=== PATIENT | male | born 1965 | race Caucasian/White ===

== ENCOUNTER 2020-12-12 12:18 | Outpatient (REF) | payer MEDICARE, MEDICAID, SELFPAY ==
[2020-12-12 14:08] LABS: Appearance Urine HAZY; Color Urine YELLOW; Glucose Urine UA NEG (NEG); Leukocyte Esterase Urine 3+ (NEG); Nitrite Urine POS (NEG); UACC Culture Trigger YES; Urine Blood 2+ (NEG); Urine Ketones NEG (NEG); Urine Protein 1+ MG/DL (NEG-TRACE)
[2020-12-12 14:35] LABS: Bacteria Urine 3+ /LPF; Oval Fat Bodies Urine NOTED; Squamous Epithelial Cell Urine TRACE /LPF; WBC Urine 50-75 /HPF (0-4)
== END 2020-12-12 12:19 | disposition home or self-care (01) ==
LOC: HO.HMGCLDS 12:18
PROVIDERS: PCP Nurse Practitioner Family; Visit Provider Nurse Practitioner Family
DX: R30.0 Dysuria (principal)
CPT/HCPCS: 81001; 81003; 87086; 87088; 87186

== ENCOUNTER 2020-12-27 12:58 | Outpatient (REF) | payer MEDICARE, MEDICAID, SELFPAY ==
[2020-12-27 14:02] LABS: MANUAL DIFF FLAG NO
[2020-12-27 14:03] LABS: Basophils Absolute Auto 0.1 X10*3/uL (0.0-0.2); Basophils Percent Auto 0.7 % (0-2); Eosinophils Absolute Auto 0.3 X10*3/uL (0.0-0.4); Eosinophils Percent Auto 3.4 % (0-4); Hematocrit 43.8 % (42-52); Hemoglobin 15.1 g/dl (14.0-18.0); Imm Gran Abs Auto 0.02 X10*3/uL (0.00-0.03); Imm Gran Pct Auto 0.2 % (0.0-0.4); Lymphocytes Absolute Auto 2.3 X10*3/uL (1.2-4.9); Mean Corpuscular HGB Conc 34.5 g/dl (31.0-36.0); Mean Corpuscular Hemoglobin 36.7 pg (27.0-33.0); Mean Corpuscular Volume 106.3 fL (80-98); Mean Platelet Volume 10.1 fL (9.4-12.4); Monocytes Absolute Auto 0.5 X10*3/uL (0.1-1.2); Monocytes Percent Auto 6.1 % (2-11); Neutrophils Absolute Auto 5.3 X10*3/uL (2.0-8.3); Neutrophils Percent Auto 62.6 % (45-73); Platelet Count 225 X10*3/uL (160-400); Red Blood Count 4.12 X10*6/uL (4.60-5.80); Red Cell Distribution Width 13.1 % (11.0-16.0); White Blood Count 8.5 X10*3/uL (4.8-10.8)
[2020-12-27 14:11] LABS: Estimated Average Glucose 94 mg/dL; Hemoglobin A1c % 4.9 %
[2020-12-27 14:38] LABS: Creatinine Urine 180.68 mg/dL; Protein/Creatinine Ratio, Ur 0.09 (<0.2); Total Protein Urine Random 16 mg/dL (<12)
[2020-12-27 14:50] LABS: Anion Gap 16 (12-20); Blood Urea Nitrogen 10 mg/dL (9-16); Calcium 10.1 mg/dL (8.4-10.2); Carbon Dioxide 26 mmol/L (22-29); Chloride 101 mmol/L (96-108); Cholesterol 175 mg/dL; Estimated Glomerular Filt Rate > 60; HDL Cholesterol 35 mg/dL; LDL Cholesterol Calculated 87 mg/dl; Phosphorus 3.1 mg/dL (2.7-4.5); Potassium 4.6 mmol/L (3.3-5.1); Sodium 138 mmol/L (135-145); Triglycerides 266 mg/dL
[2020-12-27 14:58] LABS: Vitamin D 25-OH Total 33.4 ng/mL (>30)
[2020-12-28 16:01] LABS: Calcium (PTHI) 10.4 mg/dL (8.6-10.3); PTHI 24 pg/mL (14-64)
[2021-01-01 05:27] LABS: Magnesium, RBC 5.1 mg/dL (4.0-6.4)
== END 2020-12-27 12:59 | disposition home or self-care (01) ==
LOC: HO.HMGCLDS 12:58
PROVIDERS: PCP Nurse Practitioner Family; Visit Provider Internal Medicine Nephrology
DX: I10 Essential (primary) hypertension (principal); R00.0 Tachycardia, unspecified; M10.9 Gout, unspecified; I95.1 Orthostatic hypotension; F10.10 Alcohol abuse, uncomplicated; D75.89 Other specified diseases of blood and blood-forming organs
CPT/HCPCS: 36415; 80051; 80061; 82306; 82310; 82565; 83036; 83735; 83970; 84100; 84156; 84520; 84550; 85025

== ENCOUNTER 2021-03-23 11:47 | Outpatient (REF) | payer MEDICARE, MEDICAID, SELFPAY ==
--- NOTE | ~2021-03-23 | XR_ITS ---
EXAMINATION: XR ABDOMEN COMPLETE CLINICAL INDICATION: Generalized abdominal pain COMPARISON: None TECHNIQUE: 2 views of the abdomen. FINDINGS: There is stool throughout the colon suggestive of constipation. No dilated loops of bowel are seen. There is no evidence of free air. There are no calcifications. There are degenerative changes of the lower lumbar spine. There is arthritis at both hip joints with joint space narrowing, osteophyte and subchondral cyst formation. XR/XR abdomen 3V IMPRESSION: Stool throughout the colon suggestive of constipation.
[2021-03-23 13:08] LABS: Hematocrit 43.2 % (42.0-52.0); Hemoglobin 14.7 g/dl (14.0-18.0); Mean Corpuscular Hemoglobin 36.3 pg (27.0-33.0); Mean Corpuscular Volume 106.7 fL (80.0-98.0); Mean Platelet Volume 10.7 fL (9.4-12.4); Platelet Count 202 X10*3/uL (160-400); Red Blood Count 4.05 X10*6/uL (4.60-5.80); Red Cell Distribution Width 12.6 % (11.0-16.0); White Blood Count 9.9 X10*3/uL (4.8-10.8)
[2021-03-23 13:26] LABS: Anion Gap 16 (12-20); Blood Urea Nitrogen 10 mg/dL (9-16); Calcium 9.5 mg/dL (8.4-10.2); Carbon Dioxide 26 mmol/L (22-29); Chloride 102 mmol/L (96-108); Estimated Glomerular Filt Rate > 60; Glucose Random 104 mg/dL (60-115); Lipase 60 U/L (8-78); Potassium 4.6 mmol/L (3.3-5.1); Sodium 139 mmol/L (135-145)
[2021-03-23 13:46] LABS: Prostate Specific Antigen Scr 0.65 ng/mL (<0.05-4.0)
== END 2021-03-23 11:48 | disposition home or self-care (01) ==
LOC: HO.HMGCX 11:47
PROVIDERS: PCP Nurse Practitioner Family; Visit Provider Physician Assistant
DX: R10.84 Generalized abdominal pain (principal); Z12.5 Encounter for screening for malignant neoplasm of prostate
CPT/HCPCS: 36415; 74021; 80048; 83690; 84153; 85027

== ENCOUNTER → 2021-06-20 14:22 | Outpatient (BNVA) | payer MEDICARE, MEDICAID, SELFPAY | PROVIDERS: PCP Nurse Practitioner Family; Referring Provider Nurse Practitioner Family; Visit Provider Physician Assistant | DX: Z01.818 Encounter for other preprocedural examination (principal) | CPT/HCPCS: 99202 ==

== ENCOUNTER 2021-10-22 07:59 | Day surgery (SDC) | payer MEDICARE, MEDICAID, SELFPAY ==
[2021-10-16 14:25] VITALS: BMI 27.6
[2021-10-22] VITALS (7 sets, daily range): BP systolic 61–127; BP diastolic 38–99; PULSE 68–87; RESP 16–20; TEMP 35.8–36.1; O2SAT 94–100
[2021-10-22] MEDS: Lactated Ringers 1,000 ML 50 ML IVCONT (08:36)
--- NOTE | 2021-10-22 08:39 | MHC.SHP ---
Pre-Procedural Eval Section A Date of Service: 10/22/21 Section B Chief Complaint: screening Relevant Family History (Specify if Yes): No Relevant Social History: Other (specify) (THC use) Present Medications: see Short Stay Collaborative assessment Medical History: Significant History (Gout, arthropathy HTN (hypertension)) History of Previous Operations: Relevant previous surgery/procedure and date(s) (Hx of appendectomy Hx of elbow surgery) Allergies: Allergies Allergy/AdvReac Type Severity Reaction Status Date / Time No Known Allergies Allergy Verified 09/26/21 14:56 Review of Systems Sugical H&P ROS: Negative: Constitution, Cardiovascular, Respiratory, Neurological, Psychiatric, Hem-Onc, Allergic/Immunologic, Gastrointestinal, Genitourinary, Musculoskeletal, Integumentary, Endocrine and Eyes/Ears/Nose/Throat Exam Surgical H&P Exam: Normal: HEENT, Normal: Heart, Normal: Lungs, Normal: Extremities, Normal: Abdomen, Normal: Skin and Normal: Neurological Plan Diagnosis/Plan: Unchanged I have reviewed the history and physical and performed a pertinent physical examination on my patient. No changes have occurred unless specified.
--- NOTE | 2021-10-22 09:01 | HO.ANESPROP2 ---
HPI - Anesthesia Eval Consult details Narrative: 56 yo male patient for colonoscopy PMFSH Active Problems Active Problems: All Active Problems (Updated 09/26/21 @ 15:03 by Diane Moore CNP) Lump in the testicle (Acute) Blurred vision, bilateral (Acute) Screening for colon cancer (Acute) Abdominal pain (Acute) Constipation (Acute) Dysuria (Acute) Osteoarthritis Gout Past Medical History Medical History Gout Gout, arthropathy HTN (hypertension) Family History Family History Mother HTN (hypertension) Maternal Uncle Cancer Family/Other Cancer Family history of problems with anesthesia: No Surgical History Surgical History Hx of appendectomy Hx of elbow surgery History of Problems with Anesthesia: No Social History Social History (Updated 10/22/21 @ 09:15 by Sruthi Del Real MD) Household Members: Family Alcohol intake: current Alcohol intake frequency: a few times a month Patient Tobacco Use Status: Current everyday Tobacco user Cigarette Packs Per Day: 1 Cigarettes Per Day: 20.0 Smoked in Last 30 Days: Yes Use of substances other than those prescribed or required for medical reasons: Yes Substance Use Type: Marijuana Substance Use Frequency: Daily Last Used Substance: Hours (ago) Currently Displaying Signs/Symptoms of Drug Intoxication Withdrawal: No Are you DNR?: No Advance Directives: No Advance Directives Information Provided: Yes Current occupational status: unemployed Meds Allergies Allergy/AdvReac Type Severity Reaction Status Date / Time No Known Allergies Allergy Verified 09/26/21 14:56 Active Medications: Current Medications Lactated Ringer's (Lr) 1,000 mls @ 50 mls/hr IVCONT .Q20H DANYEL Last Admin: 10/22/21 08:36 Dose: 50 mls/hr Home Medications Medication Instructions Recorded Confirmed Last Taken Type allopurinol 300 mg tablet 300 mg PO DAILY 03/23/21 10/16/21 Unknown History calcium-vit D3-ferrous fumarate 1 tab PO DAILY 03/23/21 10/16/21 Unknown History 600 mg-125 unit-18 mg tablet metoprolol succinate 25 mg 25 mg PO DAILY 03/23/21 10/16/21 10/22/21 History tablet,extended release 24 hr probenecid 500 mg tablet 0 mg PO BEDTIME 03/23/21 10/16/21 Unknown History lisinopril 10 mg tablet 10 mg PO DAILY 06/20/21 10/16/21 Unknown History Exam Exam Date and Time: October 22, 2021 09 Height,Weight and Vital Signs: Height 6 ft Weight 92.533 kg Last Vital Signs Temp 96.5 F L 10/22/21 08:18 Pulse 87 10/22/21 08:18 Resp 20 10/22/21 08:18 BP 127/99 H 10/22/21 08:18 Pulse Ox 98 10/22/21 08:18 O2 Del Method 10/22/21 08:18 Airway Mallampati Class: II TM Dist: >3cm Neck ROM: Full Denture: Upper and Lower Heart: RRR Lungs: Diminished. CTAB Assessment and Plan Assessment Anesthesia Assessment: Anesthesia Plan Discussed and Chart Reviewed Final Anesthetic Review Family History of Problems with Anesthesia: No History of Problems with Anesthesia: No NPO: Yes ASA Class: II Final Preanesthetic Review: No Changes in Pt Med Stat, Meds/Allgs Chart Reviewed, Consent Obtained/Reviewed and Anes Risks/Benef Reviewed Patient Risk: Intermediate Procedure Risk: Low Assessment/Block/Sedation in SS: Assess/Block/Sedation-SS Anesthetic Plan Anesthetic Plan: MAC: Disposition: Standard PACU
--- NOTE | 2021-10-22 09:44 | W.PM.OPN ---
Operative Note Operative Note Date of Service: 10/22/21 Narrative: Operative Information Procedure Description: Colonoscopy Indication: screening Anesthesia: MAC COLONOSCOPY Instrument: Olympus variable stiffness pediatric scope 190L Colonoscopy Monitoring: Vital signs and clinical assessment, continuous EKG monitoring, Pulse oximetry, Carbon Dioxide monitoring and blood pressure monitoring were done throughout the procedure. Colon withdrawal time was 14 minutes. Procedure: The patient was placed in the left lateral decubitis position and pre-procedure medications were administered. After a digital rectal examination of the ano-rectum, the video colonoscope was inserted into the rectum and advanced through the colon to the cecum/TI. The colonoscope was slowly withdrawn in a retrograde panoramic fashion and the colon mucosa was carefully examined including a retroflexed view of the rectum. Findings and interventions are described below. Procedure Difficulty: easy Findings: Terminal Ileum-normal Cecum: flat polyp lesion 12 mm raised with orise and then removed with cold snare with one clip applied for hemostasis Ascending Colon: normal Transverse Colon -normal Descending Colon:normal Sigmoid Colon: 10 mm sessile polyp removed with cold snare, mild-moderate diverticulosis Rectum: Retroflexion with small internal hemorrhoids, grade I Anorectum - normal Colon preparation: [place] Bowel Preparation Scale Right colon; 3 Transverse colon: 2 Left colon; 2 (0 = Unprepared colon segment with mucosa not seen due to solid stool that cannot be cleared. 1 = Portion of mucosa of the colon segment seen, but other areas of the colon segment not well seen due to staining, residual stool and/or opaque liquid. 2 = Minor amount of residual staining, small fragments of stool and/or opaque liquid, but mucosa of colon segment seen well. 3 = Entire mucosa of colon segment seen well with no residual staining, small fragments of stool or opaque liquid) Impression and Post Procedure Diagnosis: polyps internal hemorrhoids diverticular disease Plan: High fiber diet leaflet Avoid straining at stool, epsom salts and sitz bath, anusol supps or cream Repeat Colonoscopy in 3 years due to polyps or earlier if clinically indicated Above findings were reviewed with the patient and relevant handouts were provided if indicated.
== END 2021-10-22 10:50 | disposition home or self-care (01) ==
PROVIDERS: PCP Nurse Practitioner Family; Visit Provider Internal Medicine Gastroenterology
PROC: 0DJD8ZZ Inspection of Lower Intestinal Tract, Via Natural or Artificial Opening Endoscopic (ICD-10-PCS; CPT 45378; principal; 2021-10-22 09:10)
DX: Z12.11 Encounter for screening for malignant neoplasm of colon (principal); D12.5 Benign neoplasm of sigmoid colon; K63.5 Polyp of colon; K57.30 Diverticulosis of large intestine without perforation or abscess without bleeding; K64.0 First degree hemorrhoids; I10 Essential (primary) hypertension; M10.9 Gout, unspecified; Z79.899 Other long term (current) drug therapy; F12.90 Cannabis use, unspecified, uncomplicated
CPT/HCPCS: 45385; 45381; 88305

== ENCOUNTER → 2021-12-02 09:55 | Outpatient (BNVA) | payer MEDICARE, MEDICAID, SELFPAY | PROVIDERS: PCP Nurse Practitioner Family; Visit Provider Physician Assistant | DX: K57.30 Diverticulosis of large intestine without perforation or abscess without bleeding (principal); K64.9 Unspecified hemorrhoids; D36.9 Benign neoplasm, unspecified site | CPT/HCPCS: 99212 ==

== ENCOUNTER 2021-12-31 13:32 | Outpatient (REF) | payer MEDICARE, MEDICAID, SELFPAY ==
[2021-12-31 16:27] LABS: MANUAL DIFF FLAG NO
[2021-12-31 16:32] LABS: Basophils Absolute Auto 0.1 X10*3/uL (0.0-0.2); Basophils Percent Auto 1.1 % (0-2); Eosinophils Absolute Auto 0.3 X10*3/uL (0.0-0.4); Eosinophils Percent Auto 3.5 % (0-4); Hematocrit 46.6 % (42.0-52.0); Hemoglobin 15.9 g/dl (14.0-18.0); Imm Gran Abs Auto 0.02 X10*3/uL (0.00-0.03); Imm Gran Pct Auto 0.3 % (0.0-0.4); Lymphocytes Absolute Auto 2.2 X10*3/uL (1.2-4.9); Mean Corpuscular HGB Conc 34.1 g/dl (31.0-36.0); Mean Corpuscular Hemoglobin 35.8 pg (27.0-33.0); Mean Platelet Volume 10.5 fL (9.4-12.4); Monocytes Absolute Auto 0.6 X10*3/uL (0.1-1.2); Monocytes Percent Auto 7.9 % (2-11); Neutrophils Percent Auto 56.2 % (45-73); Platelet Count 169 X10*3/uL (160-400); Red Blood Count 4.44 X10*6/uL (4.60-5.80); White Blood Count 7.2 X10*3/uL (4.8-10.8)
[2021-12-31 16:39] LABS: Estimated Average Glucose 94 mg/dL; Hemoglobin A1c % 4.9 %
[2021-12-31 16:44] LABS: Alanine Aminotransferase 9 U/L (0-40); Albumin Level 4.4 g/dL (3.5-5.0); Alkaline Phosphatase 78 U/L (39-117); Anion Gap 14 (12-20); Aspartate Amino Transferase 19 U/L (5-37); Bilirubin Total 0.5 mg/dL (0.0-1.0); Blood Urea Nitrogen 10 mg/dL (9-16); Calcium 9.8 mg/dL (8.4-10.2); Carbon Dioxide 29 mmol/L (22-29); Chloride 99 mmol/L (96-108); Cholesterol 183 mg/dL; Estimated Glomerular Filt Rate > 60; Glucose Random 75 mg/dL (60-115); HDL Cholesterol 44 mg/dL; LDL Cholesterol Calculated 102 mg/dl; Magnesium 1.8 mg/dL (1.6-2.6); Phosphorus 2.9 mg/dL (2.7-4.5); Potassium 4.7 mmol/L (3.3-5.1); Sodium 137 mmol/L (135-145); Total Protein 7.6 g/dL (6.5-8.0); Triglycerides 185 mg/dL; Uric Acid 3.9 mg/dL (3.4-7.0)
[2021-12-31 16:47] LABS: Creatinine Urine 98.45 mg/dL; Protein/Creatinine Ratio, Ur 0.09 (<0.2); Total Protein Urine Random 9 mg/dL (<12)
[2021-12-31 17:07] LABS: Vitamin D 25-OH Total 12.6 ng/mL (>30)
[2022-01-01 13:22] LABS: PTHI 54 pg/mL (16-77)
== END 2021-12-31 13:33 | disposition home or self-care (01) ==
LOC: HO.HMGCLDS 13:32
PROVIDERS: PCP Nurse Practitioner Family; Visit Provider Internal Medicine Nephrology
DX: R60.9 Edema, unspecified (principal); I10 Essential (primary) hypertension; M10.09 Idiopathic gout, multiple sites; R60.0 Localized edema; I95.1 Orthostatic hypotension; F10.10 Alcohol abuse, uncomplicated; D75.89 Other specified diseases of blood and blood-forming organs; F17.210 Nicotine dependence, cigarettes, uncomplicated
CPT/HCPCS: 36415; 80053; 80061; 82306; 83036; 83735; 83970; 84100; 84156; 84550; 85025

== ENCOUNTER 2022-05-22 14:25 | Outpatient (REF) | payer MEDICARE, MEDICAID, SELFPAY | END 2022-05-22 14:26 | disposition home or self-care (01) | LOC: HO.LNP 14:25 | PROVIDERS: Visit Provider Internal Medicine | DX: N30.90 Cystitis, unspecified without hematuria (principal); R35.89 Other polyuria | CPT/HCPCS: 87086; 87088; 87186 ==

== ENCOUNTER 2022-07-11 09:13 | Outpatient (REF) | payer MEDICARE, MEDICAID, SELFPAY ==
[2022-07-11 11:21] LABS: Appearance Urine Clear; Color Urine Yellow; Glucose Urine UA Negative (Negative); Leukocyte Esterase Urine Moderate (2+) (Negative); Nitrite Urine Positive (Negative); Specific Gravity - Urine 1.015 (1.005-1.025); UMIC TRIGGER UACC YES; Urine Blood Negative (Negative); Urine Ketones Negative (Negative); Urine Protein Negative (Neg-Trace)
[2022-07-11 11:25] LABS: Bacteria Urine 4+ (None Seen); Hyaline Casts Urine 0-2 /LPF (0-2); RBC Urine 0-2 /HPF (0-2); Squamous Epithelial Cell Urine 0-2 /HPF (0-2); UACC Culture Trigger YES
[2022-07-11 11:26] LABS: MANUAL DIFF FLAG NO
[2022-07-11 11:35] LABS: Basophils Absolute Auto 0.1 X10*3/uL (0.0-0.2); Basophils Percent Auto 0.8 % (0-2); Eosinophils Absolute Auto 0.3 X10*3/uL (0.0-0.4); Eosinophils Percent Auto 2.5 % (0-4); Hematocrit 45.1 % (42.0-52.0); Hemoglobin 15.6 g/dl (14.0-18.0); Imm Gran Abs Auto 0.06 X10*3/uL (0.00-0.03); Imm Gran Pct Auto 0.5 % (0.0-0.4); Lymphocytes Absolute Auto 2.2 X10*3/uL (1.2-4.9); Lymphocytes Percent Auto 18.4 % (20-40); Mean Corpuscular HGB Conc 34.6 g/dl (31.0-36.0); Mean Corpuscular Hemoglobin 35.3 pg (27.0-33.0); Mean Platelet Volume 10.8 fL (9.4-12.4); Monocytes Absolute Auto 0.7 X10*3/uL (0.1-1.2); Monocytes Percent Auto 5.6 % (2-11); Neutrophils Absolute Auto 8.6 x10*3/uL (2.0-8.3); Neutrophils Percent Auto 72.2 % (45-73); Platelet Count 170 X10*3/uL (160-400); Red Blood Count 4.42 X10*6/uL (4.60-5.80); Red Cell Distribution Width 13.1 % (11.0-16.0); White Blood Count 11.9 X10*3/uL (4.8-10.8)
[2022-07-11 12:02] LABS: Alanine Aminotransferase 7 U/L (0-40); Albumin Level 4.5 g/dL (3.5-5.0); Alkaline Phosphatase 84 U/L (39-117); Anion Gap 16 (12-20); Aspartate Amino Transferase 18 U/L (5-37); Bilirubin Total 1.2 mg/dL (0.0-1.0); Blood Urea Nitrogen 15 mg/dL (9-16); Calcium 9.3 mg/dL (8.4-10.2); Carbon Dioxide 20 mmol/L (22-29); Chloride 104 mmol/L (96-108); Estimated Glomerular Filt Rate > 60; Glucose Fasting 119 mg/dL (60-99); Potassium 3.9 mmol/L (3.3-5.1); Sodium 136 mmol/L (135-145); Total Protein 7.5 g/dL (6.5-8.0)
[2022-07-11 12:22] LABS: Prostate Specific Antigen Scr 0.55 ng/mL (<0.05-4.0); TSH reflex Free T4 7.18 uIU/mL (0.32-4.0)
[2022-07-11 14:32] LABS: Free T4 (Free Thyroxine) 1.41 ng/dL (0.71-1.85)
== END 2022-07-11 09:14 | disposition home or self-care (01) ==
LOC: HO.HMGCLDS 09:13
PROVIDERS: PCP Nurse Practitioner Family; Visit Provider Nurse Practitioner Family
DX: Z12.5 Encounter for screening for malignant neoplasm of prostate (principal); R33.9 Retention of urine, unspecified; I10 Essential (primary) hypertension
CPT/HCPCS: 36415; 80053; 81001; 84153; 84439; 84443; 85025; 87086; 87088; 87186

== ENCOUNTER 2022-07-22 11:54 | Outpatient (REF) | payer MEDICARE, MEDICAID, SELFPAY | END 2022-07-22 11:55 | disposition home or self-care (01) | LOC: HO.LAB 11:54 | PROVIDERS: Visit Provider Nurse Practitioner Family | DX: Z13.89 Encounter for screening for other disorder (principal) ==

== ENCOUNTER → 2022-08-05 10:56 | Outpatient (BNVA) | payer MEDICARE, MEDICAID, SELFPAY | PROVIDERS: PCP Nurse Practitioner Family; Visit Provider Nurse Practitioner Family | DX: R33.9 Retention of urine, unspecified (principal); N39.0 Urinary tract infection, site not specified; N52.9 Male erectile dysfunction, unspecified | CPT/HCPCS: 51798; 99202 ==

== ENCOUNTER 2022-08-15 14:38 | Outpatient (REF) | payer MEDICARE, MEDICAID, SELFPAY ==
--- NOTE | ~2022-08-15 | CT_ITS ---
EXAMINATION: CT CHEST SCREENING CLINICAL INFORMATION: Current smoker. 42 pack year history. COMPARISON: None available. TECHNIQUE: Multidetector volumetric CT imaging of the chest is performed without contrast using low dose technique. Additional 2D coronal and sagittal reformatted images and axial 3D maximum intensity projection (MIP) images are generated on the CT workstation. This CT examination was performed using dose optimization techniques as appropriate, variously including the following: *Automated exposure control *Adjustment of mA and/or kV according to patient size (this includes techniques or standardized protocols for targeted exams where dose is matched to indication/reason for exam; i.e. extremities or head) *Use of iterative reconstruction technique DLP: 66 mGy-cm FINDINGS: LUNGS: The lungs are clear with no evidence of inflammation or nodules. MEDIASTINUM: The mediastinum is normal. CORONARY ARTERY CALCIFICATION: Moderate to severe PLEURA: There is no pleural effusion. No pleural mass or thickening. AXILLA: No lymphadenopathy. UPPER ABDOMEN: Unremarkable OSSEOUS STRUCTURES: Unremarkable. CT/CT lung screening IMPRESSION: Moderate to severe coronary artery calcification otherwise normal exam. ASSESSMENT: Lung-RADS category 1: Negative RECOMMENDATION: Annual low-dose chest CT follow-up recommended
== END 2022-08-15 14:39 | disposition home or self-care (01) ==
LOC: HO.CT 14:38
PROVIDERS: PCP Nurse Practitioner Family; Visit Provider Physician Assistant Medical
DX: Z12.2 Encounter for screening for malignant neoplasm of respiratory organs (principal); F17.210 Nicotine dependence, cigarettes, uncomplicated
CPT/HCPCS: 71271; G0296

== ENCOUNTER 2022-09-09 09:01 | Outpatient (REF) | payer MEDICARE, MEDICAID, SELFPAY | END 2022-09-09 09:02 | disposition home or self-care (01) | LOC: HO.LNP 09:01 | PROVIDERS: PCP Nurse Practitioner Family; Visit Provider Nurse Practitioner Family | DX: N39.0 Urinary tract infection, site not specified (principal); N52.9 Male erectile dysfunction, unspecified; R82.90 Unspecified abnormal findings in urine | CPT/HCPCS: 51798; 87086; 87088; 87186; 99212 ==

== ENCOUNTER 2022-09-09 09:01 | Outpatient (AMB) | payer MEDICARE, MEDICAID, SELFPAY ==
--- NOTE | 2022-09-09 09:04 | A.OFFVIS_ITS ---
Intake Intake Visit Reasons: 1m/US Intake Note: Patient is present for follow up erectile dysfunction/recurrent uti Urology Medications: previously treated with bactrim [id number], cialis Blood Thinner: none PVR: 0ml's Sourcing Intern Required: No Accompanied by: Self / Same As Patient Allergies No Known Allergies Allergy (Verified 09/09/22 13:32) Medication List - Last Reconciled 09/09/22 by KENNEDY Reyes allopurinol 300 mg PO DAILY lisinopril 10 mg PO DAILY metoprolol succinate ER 25 mg PO DAILY probenecid 0 mg PO BEDTIME tadalafil (Cialis) 5 mg PO DAILY 90 days HPI HPI Comments History of Present Illness Details Gigi is a pleasant 57-year-old male patient of Dr. Noa briscoe. He presents to the office today for follow-up. Of note patient was seen approximately 1 month ago as a new patient for recurrent urinary tract infections, erectile dysfunction, and incomplete bladder emptying. In discussion with the patient today he reports to be doing and feeling well. He reports feeling urinary symptoms have since improved and feels his urinary stream has also improved. However continues with intermittent episodes of urinary frequency and foul-smelling urine. In office urinalysis results reviewed with the patient today. 3+ leukocytes positive nitrates. PVR 0 mL. Of note, previous urine sent from last office visit for microgen testing and patient has since completed Bactrim for Klebsiella pneumoniae. Discussed obtaining retroperitoneal ultrasound for further assessment evaluation as well as follow-up in office cystoscopy. Will send urine for culture today. When asked patient denies urinary urgency, incontinence, nocturia, hematuria, dysuria, flank pain, fever, and or chills. Discussed and stressed at length importance of limiting/quitting smoking, daily exercise/brisk walking, healthy eating habits, and adequate sleep for improvement in urinary symptoms, erectile dysfunction, as well as overall health and well-being. In review of patient's chart it appears PSA 07/22-0.6. PFSH Medical History Gout HTN (hypertension) Nicotine dependence, cigarettes, uncomplicated Tubular adenoma of colon Surgical History History of appendectomy History of colonoscopy History of dental surgery History of elbow surgery History of tonsillectomy Family History Mother HTN (hypertension) Maternal Uncle Cancer Family/Other Cancer Social History Household Members: Family Housing: Condominium Alcohol intake: current Alcohol intake frequency: a few times a month Patient Tobacco Use Status: Current everyday Tobacco user Cigarettes Per Day: 10 Years Smoked: (current smoker - onset 15yo, 1ppd x 42yrs, now 5-15cig/day - 40pyh) e-Cigarette/Vaping Use: Never Used Second Hand Smoke Exposure: Yes Substance Use Type: Marijuana service: No Current occupational status: disabled Current occupational exposures/hazards: No Cognitive needs: No Hearing needs: No Vision needs: No Review of Systems Const Reports as per HPI Eyes Reports no additional complaints ENT Reports no additional complaints Card Reports no additional complaints Resp Reports no additional complaints GI Reports no additional complaints Reports as per HPI Musc Reports no additional complaints Neuro Reports no additional complaints Psych Reports no additional complaints Endo Reports no additional complaints Shar/Lymph Reports no additional complaints Aller/Immun Reports no additional complaints Physical Exam Const General: cooperative, healthy appearing, comfortable, no acute distress, well developed, alert and awake Orientation/consciousness: patient oriented x3 Limitations: no limitations HEENT Head: Yes normal to inspection, Yes normocephalic and Yes atraumatic Ears: hearing grossly normal bilaterally Eyes General: appearance normal, both eyes and all related structures Neck Neck: Yes normal visual inspection and Yes trachea midline Chest Chest palpation & inspection: normal inspection of the chest Resp Effort & Inspection: normal respiratory effort and able to speak in complete sentences Cardio Rate: regular rate GI Inspection: Yes normal to inspection Rectal Exam - Male: Yes other (enlarged prostate ) General: Yes no CVA tenderness Back/Spine/Pelvis Back: no CVA tenderness Skin General skin exam: no rashes or lesions noted Neuro General: patient oriented x3 Extrem General: Yes normal to inspection Psych Appearance: grossly normal and well kempt Mental Status: mental status grossly normal Speech and movement: Normal speech and movement present and Clear speech present Affect: normal affect Attitude: cooperative Thought process: Normal thought process present Thought content: Normal thought content present Insight: Fair insight present (Psych) Judgement: Fair judgement present (Psych) Office Procedures Post Void Residual Post Residual Void Post Void Residual (PVR): 0 [id number]-[id number] Void Residual by ultrasound Results AMB Urinalysis, Automated UA Leukoctes 500 Jhonny/uL Last Edit by Andrews Concepcion on 09/09/22 09:25 UA Nitrite Positive Last Edit by Andrews Concepcion on 09/09/22 09:25 UA Urobilinogen 0.2 mg/dL Last Edit by Andrews Concepcion on 09/09/22 09:25 UA Protein 0 mg/dL Last Edit by Andrews Concepcion on 09/09/22 09:25 UA pH 6.0 Last Edit by Andrews Concepcion on 09/09/22 09:25 UA Blood 0 Frederick/uL Last Edit by Andrews Concepcion on 09/09/22 09:25 UA Specific [place] 1.010 Last Edit by Andrews Concepcion on 09/09/22 09:25 UA Ketone Negative Last Edit by Andrews Concepcion on 09/09/22 09:25 UA Bilirubin 0 mg/dL Last Edit by Andrews Concepcion on 09/09/22 09:25 UA Glucose 0 mg/dL Last Edit by Andrews Concepcion on 09/09/22 09:25 Results Reviewed Results Reviewed: Laboratory Last Values Urine pH (Auto) 6.0 09/09/22 09:07 Specific [place] (Auto) 1.010 09/09/22 09:07 Urine Protein (Auto) 0 mg/dL 09/09/22 09:07 Glucose (UA)(Auto) 0 mg/dL 09/09/22 09:07 Urine Ketones (Auto) Negative 09/09/22 09:07 Urine Blood (Auto) 0 Frederick/uL 09/09/22 09:07 Urine Nitrite (Auto) Positive 09/09/22 09:07 Urine Bilirubin (Auto) 0 mg/dL 09/09/22 09:07 Urine Urobilinogen (Auto) 0.2 mg/dL 09/09/22 09:07 Leukocyte Esterase (Auto) 500 Jhonny/uL 09/09/22 09:07 Assessment & Plan Assessment & Plan (1) Recurrent UTI: Code(s): N39.0 - Urinary tract infection, site not specified (2) Complicated urinary tract infection: Code(s): N39.0 - Urinary tract infection, site not specified (3) Erectile dysfunction: Code(s): N52.9 - Male erectile dysfunction, unspecified (4) Foul smelling urine: Code(s): R82.90 - Unspecified abnormal findings in urine Plan In office urinalysis results reviewed with the patient today; as noted above; will send for urine culture Will await culture results for treatment of urinary tract infection Patient reporting foul-smelling urine with intermittent episodes of urinary frequency. Patient otherwise is happy with his current voiding parameters. Will obtain retroperitoneal ultrasound for further assessment evaluation. Continue Cialis 5mg daily. Discussed, educated, and instructed on the importance of drinking plenty of water daily. Discussed and stressed the importance of quitting/limiting cigarette smoking for improvement and erectile dysfunction as well as overall health and well-being. Follow-up in office cystoscopy with imaging to be completed prior; or sooner with any issues, concerns, and or questions Orders: Orders US retroperitoneal comp Today N39.0 - Urinary tract infection, site not specified Urine Culture Today N39.0 - Urinary tract infection, site not specified AMB Urinalysis Automated Today Z13.9 - Encounter for screening, unspecified AMB Post Void Residual by ultrasound Today N39.0 - Urinary tract infection, site not specified Patient Instructions: The patient had an opportunity to ask questions regarding the treatment plan. All questions were answered. Physical exam, labs, and imaging were discussed and reviewed in detail. As well as risks, benefits, and discussion of treatment choices. No major barriers to understanding were identified. The patient expressed understanding and agreement with the above treatment plan. The patient was made aware they should contact our office by phone for worsening of their current condition, the appearance of new symptoms, or with any questi ons or concerns. Compliance is encouraged with any medications and follow up testing that is ordered. It is a privilege to be allowed the opportunity to participate in? your urological care.? Again, if you have any questions or concerns If you have any questions or concerns please do not hesitate to contact me. The office is [phone]. This note is constructed using voice recognition software. While every effort has been made to ensure accuracy woodwind instruments inspector errors may have been included. Yours sincerely, KENNEDY Reyes Coding Level of Care Code Est Pt Level 4 (29168) Diagnoses Recurrent UTI N39.0 Complicated urinary tract infection N39.0 Erectile dysfunction N52.9 Foul smelling urine R82.90 CPT Codes Post Residual Void - PVR CPT Code: 93237-Ghvo Void Residual by ultrasound ([id number])
== END 2022-09-09 09:43 | disposition home or self-care (01) ==
PROVIDERS: PCP Nurse Practitioner Family; Visit Provider Nurse Practitioner Family
DX: N39.0 Urinary tract infection, site not specified (principal); N52.9 Male erectile dysfunction, unspecified; R82.90 Unspecified abnormal findings in urine
CPT/HCPCS: 99214

== ENCOUNTER 2022-10-08 10:26 | Outpatient (REF) | payer MEDICARE, MEDICAID, SELFPAY ==
--- NOTE | ~2022-10-08 | US_ITS ---
EXAMINATION: US RETROPERITONEAL COMPLETE (RENAL) CLINICAL INFORMATION: Urinary tract infection, site not specified. COMPARISON: X-ray abdomen dated 03/23/2021. TECHNIQUE: Real-time imaging of the kidneys and bladder. FINDINGS: RIGHT KIDNEY: 12.3 x 5.2 x 6.3 cm (SAG x AP x TRV). The kidney is normal in size, contour, and echogenicity. Renal cortical thickness is normal. No calculi or focal parenchymal lesions. Pelviectasis without sandy hydronephrosis. . Benign-appearing renal cysts measuring up to 1.5 cm. No follow-up imaging is recommended. LEFT KIDNEY: 12.3 x 4.5 x 5.7 cm (SAG x AP x TRV). The kidney is normal in size, contour, and echogenicity. Renal cortical thickness is normal. No renal calculi or focal parenchymal lesions. Trace left hydronephrosis. BLADDER: Well distended and normal. Bilateral ureteral jets are demonstrated. Prevoid bladder volume is 140 mL. Postvoid bladder volume is 118 mL. Debris within the urinary bladder. Prostate volume is 22.8 mL which is normal in size. US/US retroperitoneal comp IMPRESSION: 1. Trace left hydronephrosis. Right renal pelviectasis without sandy hydronephrosis. 2. Debris within the urinary bladder, nonspecific but recommend correlation with urinalysis. 3. Postvoid bladder residual of 118 mL.
== END 2022-10-08 10:27 | disposition home or self-care (01) ==
LOC: HO.US 10:26
PROVIDERS: PCP Nurse Practitioner Family; Visit Provider Nurse Practitioner Family
DX: N39.0 Urinary tract infection, site not specified (principal)
CPT/HCPCS: 76770

== ENCOUNTER 2022-10-29 08:36 | Outpatient (AMB) | payer MEDICARE, MEDICAID, SELFPAY ==
--- NOTE | 2022-10-29 08:40 | MHC.OFFVIS ---
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 English. He presents to the office today for follow-up. Of note patient was seen approximately 6 weeks ago for recurrent urinary tract infections, erectile dysfunction, and incomplete bladder emptying at which time a retroperitoneal ultrasound was ordered for further assessment evaluation. These results were reviewed with the patient today. Right kidney with benign-appearing renal cysts measuring up to 1.5 cm. No follow-up imaging is recommended per radiology report. There is no calculi or lesions noted. Left kidney with no calculi and or lesions noted. Trace left hydronephrosis. The bladder is well distended and normal. Debris within the bladder noted. Prostate volume is approximately 23 mL. In discussion with the patient today reports to be doing and feeling well. He reports noting UTI symptoms of dysuria and foul-smelling urine to have resurfaced late last week. In office urinalysis results reviewed with the patient today. 1+ leukocytes and positive nitrates. Discussed treatment of urinary tract infection as well as further testing with microgen as patient continues to report UTI like symptoms despite treatment of urinary tract infections. When asked patient reports significant improvement in feelings of incomplete bladder emptying with 5 mg of Cialis daily. He would like to continue this. Patient PVR 0 mL today. Patient with previous high residuals and incomplete bladder emptying. Previous urinary tract infections noting Klebsiella pneumoniae sensitive to Bactrim. Discussed suppression therapy with methenamine and vitamin-C verses low-dose antibiotic therapy. When asked he denies urinary urgency, incontinence, nocturia, hematuria, dysuria, flank pain, fever, and or chills. Discussed and stressed at length importance of limiting/quitting smoking, daily exercise/brisk walking, healthy eating habits, and adequate sleep for improvement in urinary symptoms, erectile dysfunction, as well as overall health and well-being. In review of patient's chart it appears PSA 5/-0.6. Patient otherwise denies any other issues or concerns at this time. [facility] Medical History Gout HTN (hypertension) Nicotine dependence, cigarettes, uncomplicated Tubular adenoma of colon Surgical History History of appendectomy History of colonoscopy History of dental surgery History of elbow surgery History of tonsillectomy Family History Mother HTN (hypertension) Maternal Uncle Cancer Family/Other Cancer Social History Household Members: [facility] Alcohol intake: current Alcohol intake frequency: a few times a month Patient Tobacco Use Status: Current everyday Tobacco user Cigarettes Per Day: 10 Years Smoked: (current smoker - onset 15yo, 1ppd x 42yrs, now 5-15cig/day - 40pyh) e-Cigarette/Vaping Use: Never Used Second Hand Smoke Exposure: Yes Substance Use Type: Marijuana service: No Current occupational status: disabled Current occupational exposures/hazards: No Cognitive needs: No Hearing needs: No Vision needs: No Review of Systems Const Reports as per HPI Eyes Reports no additional complaints ENT Reports no additional complaints Card Reports no additional complaints Resp Reports no additional complaints GI Reports no additional complaints Reports as per HPI Musc Reports no additional complaints Neuro Reports no additional complaints Psych Reports no additional complaints Endo Reports no additional complaints Shar/Lymph Reports no additional complaints Aller/Immun Reports no additional complaints Physical Exam Const General: cooperative, healthy appearing, comfortable, no acute distress, well developed, alert and awake Orientation/consciousness: patient oriented x3 Limitations: no limitations HEENT Head: Yes normal to inspection, Yes normocephalic and Yes atraumatic Ears: hearing grossly normal bilaterally Eyes General: appearance normal, both eyes and all related structures Neck Neck: Yes normal visual inspection and Yes trachea midline Chest Chest palpation & inspection: normal inspection of the chest Resp Effort & Inspection: normal respiratory effort and able to speak in complete sentences Cardio Rate: regular rate GI Inspection: Yes normal to inspection Rectal Exam - Male: Yes other (enlarged prostate ) General: Yes no CVA tenderness Back/Spine/Pelvis Back: no CVA tenderness Skin General skin exam: no rashes or lesions noted Neuro General: patient oriented x3 Extrem General: Yes normal to inspection Psych Appearance: grossly normal and well kempt Mental Status: mental status grossly normal Speech and movement: Normal speech and movement present and Clear speech present Affect: normal affect Attitude: cooperative Thought process: Normal thought process present Thought content: Normal thought content present Insight: Fair insight present (Psych) Judgement: Fair judgement present (Psych) Office Procedures Post Void Residual Post Residual Void Post Void Residual (PVR): 0 48979-[id number] Void Residual by ultrasound Results AMB Urinalysis, Automated UA Leukoctes 70 Jhonny/uL Last Edit by [employer] on 10/29/22 09:05 UA Nitrite Positive Last Edit by [employer] on 10/29/22 09:05 UA Urobilinogen 0.2 mg/dL Last Edit by [employer] on 10/29/22 09:05 UA Protein 0 mg/dL Last Edit by [employer] on 10/29/22 09:05 UA pH 6.0 Last Edit by [employer] on 10/29/22 09:05 UA Blood 0 Frederick/uL Last Edit by [employer] on 10/29/22 09:05 UA Specific [place] 1.015 Last Edit by [employer] on 10/29/22 09:05 UA Ketone Negative Last Edit by [employer] on 10/29/22 09:05 UA Bilirubin 0 mg/dL Last Edit by [employer] on 10/29/22 09:05 UA Glucose 0 mg/dL Last Edit by [employer] on 10/29/22 09:05 Results Reviewed Results Reviewed: Laboratory Last Values Urine pH (Auto) 6.0 10/29/22 08:49 Specific [place] (Auto) 1.015 10/29/22 08:49 Urine Protein (Auto) 0 mg/dL 10/29/22 08:49 Glucose (UA)(Auto) 0 mg/dL 10/29/22 08:49 Urine Ketones (Auto) Negative 10/29/22 08:49 Urine Blood (Auto) 0 Frederick/uL 10/29/22 08:49 Urine Nitrite (Auto) Positive 10/29/22 08:49 Urine Bilirubin (Auto) 0 mg/dL 10/29/22 08:49 Urine Urobilinogen (Auto) 0.2 mg/dL 10/29/22 08:49 Leukocyte Esterase (Auto) 70 Jhonny/uL 10/29/22 08:49 Date of Service: 10/08/22 Procedure(s): US retroperitoneal comp EXAMINATION: US RETROPERITONEAL COMPLETE (RENAL) FINDINGS: RIGHT KIDNEY: 12.3 x 5.2 x 6.3 cm (SAG x AP x TRV). The kidney is normal in size, contour, and echogenicity. Renal cortical thickness is normal. No calculi or focal parenchymal lesions. Pelviectasis without sandy hydronephrosis. . Benign-appearing renal cysts measuring up to 1.5 cm. No follow-up imaging is recommended. LEFT KIDNEY: 12.3 x 4.5 x 5.7 cm (SAG x AP x TRV). The kidney is normal in size, contour, and echogenicity. Renal cortical thickness is normal. No renal calculi or focal parenchymal lesions. Trace left hydronephrosis. BLADDER: Well distended and normal. Bilateral ureteral jets are demonstrated. Prevoid bladder volume is 140 mL. Postvoid bladder volume is 118 mL. Debris within the urinary bladder. Prostate volume is 22.8 mL which is normal in size. IMPRESSION: 1.? Trace left hydronephrosis. Right renal pelviectasis without sandy hydronephrosis. 2.? Debris within the urinary bladder, nonspecific but recommend correlation with urinalysis. 3.? Postvoid bladder residual of 118 mL. ? Assessment & Plan Assessment & Plan (1) Foul smelling urine: Code(s): R82.90 - Unspecified abnormal findings in urine (2) Complicated urinary tract infection: Code(s): N39.0 - Urinary tract infection, site not specified (3) Recurrent UTI: Code(s): N39.0 - Urinary tract infection, site not specified (4) Dysuria: Code(s): R30.0 - Dysuria Plan In office urinalysis results reviewed with the patient today; as noted above; will send for microgen testing Discussed recent retroperitoneal ultrasound results with the patient today; as noted above. Continue 5 mg of Cialis daily. P.r.n. 20 mg of Cialis prescription provided. Start Bactrim as discussed and prescribed. Discussed at length potential causes of recurrent urinary tract infections. Discussed at length suppression therapy with methenamine and vitamin-C verses low-dose antibiotic therapy; however patient would like to think about this Discussed, educated, and instructed on the importance of drinking plenty of water daily.? Discussed and stressed the importance of quitting/limiting cigarette smoking for improvement and erectile dysfunction as well as overall health and well-being. Follow-up with Dr. Cervantes as planned for in office cystoscopy for further assessment evaluation Orders: Orders AMB Urinalysis Automated Today Z13.9 - Encounter for screening, unspecified AMB Post Void Residual by ultrasound Today N39.0 - Urinary tract infection, site not specified Medications: New sulfamethoxazole-trimethoprim 800-160 mg (Bactrim DS) 1 tab PO BID 14 days 28 tabs 0RF N39.0 - Urinary tract infection, site not specified tadalafil (Cialis) administer approximately 30min before sexual activity; do not use more than 1 dose per 24hrs [id number] [facility] [id number] Member [id number] 20 mg PO DAILY 90 days PRN 30 tabs 0RF sexual activity Patient Instructions: The patient had an opportunity to ask questions regarding the treatment plan. All questions were answered. Physical exam, labs, and imaging were discussed and reviewed in detail. As well as risks, benefits, and discussion of treatment choices. No major barriers to understanding were identified. The patient expressed understanding and agreement with the above treatment plan. The patient was made aware they should contact our office by phone for worsening of their current condition, the appearance of new symptoms, or with any questions or concerns. Compliance is encouraged with any medications and follow up testing that is ordered. It is a privilege to be allowed the opportunity to participate in? your urological care.? Again, if you have any questions or concerns If you have any questions or concerns please do not hesitate to contact me. The office is [phone]. This note is constructed using voice recognition software. While every effort has been made to ensure accuracy district gauger errors may have been included. Yours sincerely, JAJA Reyes-BRAULIO Coding Level of Care Code Est Pt Level 4 (15348) Diagnoses Foul smelling urine R82.90 Complicated urinary tract infection N39.0 Recurrent UTI N39.0 Dysuria R30.0 CPT Codes Post Residual Void - PVR CPT Code: 14123-Rohw Void Residual by ultrasound ([id number])
== END 2022-10-29 09:19 | disposition home or self-care (01) ==
PROVIDERS: PCP Nurse Practitioner Family; Visit Provider Nurse Practitioner Family
DX: R82.90 Unspecified abnormal findings in urine (principal); N39.0 Urinary tract infection, site not specified; R30.0 Dysuria; Z13.9 Encounter for screening, unspecified
CPT/HCPCS: 99214

== ENCOUNTER → 2022-10-29 08:36 | Outpatient (BNVA) | payer MEDICARE, MEDICAID, SELFPAY | PROVIDERS: PCP Nurse Practitioner Family; Visit Provider Nurse Practitioner Family | DX: N39.0 Urinary tract infection, site not specified (principal) | CPT/HCPCS: 51798; 81003; 99212 ==

== ENCOUNTER 2022-11-11 08:33 | Outpatient (AMB) | payer MEDICARE, MEDICAID, SELFPAY ==
[2022-11-11 08:37] VITALS: BP 150/86; PULSE 96; O2SAT 97; BMI 25.5
--- NOTE | 2022-11-11 08:37 | MHC.PC.OV ---
Vital Signs 11/11/22 08:37 Height 6 ft 1 in Weight 193 lb 2 oz BMI 25.5 BP 150/86 H Blood Pressure Location Lt brachial Position Sitting Pulse 96 Pulse Source Pulse Oximeter Pulse Oximetry (%) 97 Oxygen Delivery Method Room Air Intake Visit Reasons: 4m follow up Allergies No Known Allergies Allergy (Verified 11/11/22 10:02) Medication List - Last Reconciled 11/11/22 by Sai Wagner, [facility]- allopurinol 300 mg PO DAILY lisinopril 10 mg PO DAILY metoprolol succinate ER 25 mg PO DAILY probenecid 0 mg PO BEDTIME tadalafil (Cialis) 5 mg PO DAILY 90 days tadalafil (Cialis) 20 mg PO DAILY PRN 90 days Tobacco use date assessed: 11/11/22 Dental Screening Dental Screen Date: 11/11/22 Did you have a dental visit in the last 12 months?: Yes Did you have a dental problem in the last 6 months where you did not have access to dental care?: No Was dental information given to patient?: Patient has dentist HPI 4m follow up HPI Details HTN: Blood pressure is managed with lisinopril 10mg and metoprolol 25mg. Pt reports that his blood pressure is much better at home, in the 120s/70s-80s. Will increase metoprolol from 25mg to 50mg. New RBBB on EKG. Will refer to cardiology and order echo. Denies chest pain, shortness of breath, headache, dizziness, and blurred vision. [facility] Medical History Nicotine dependence, cigarettes, uncomplicated Tubular adenoma of colon HTN (hypertension) Gout Surgical History History of elbow surgery History of dental surgery History of tonsillectomy History of appendectomy History of colonoscopy Family History Mother HTN (hypertension) Maternal Uncle Cancer Family/Other Cancer Social History Household Members: Family [facility] Alcohol intake: current Alcohol intake frequency: a few times a month Patient Tobacco Use Status: Current everyday Tobacco user Cigarettes Per Day: 10 Years Smoked: (current smoker - onset 15yo, 1ppd x 42yrs, now 5-15cig/day - 40pyh) e-Cigarette/Vaping Use: Never Used Second Hand Smoke Exposure: Yes Substance Use Type: Marijuana service: No Current occupational status: disabled Current occupational exposures/hazards: No Cognitive needs: No Hearing needs: No Vision needs: No Questionnaire Thrive Questionnaire Date Thrive assessed: 07/07/22 ZARI-7 AMB Questionnaire ZARI-7 Date ZARI - 7 assessed: 07/07/22 Source: Developed by Drs. Efe Dalton, Sofia Crook, Idris Garay and colleagues, with an educational kaci from [employer]. Review of Systems Const Reports as per HPI Physical exam (Primary Care) Vital Signs: Last Vital Signs Pulse 96 11/11/22 08:37 BP 150/86 H 11/11/22 08:37 Pulse Ox 97 11/11/22 08:37 Oxygen Delivery Method Room Air 11/11/22 08:37 BMI result Body Mass Index 25.5 Tobacco/Smoking Status: Tobacco use Status Tobacco use date assessed 11/11/22 11/11/22 08:42 Patient Tobacco Use Status Current everyday Tobacco 11/11/22 08:42 e-Cigarette/Vaping Use Never Used 11/11/22 08:42 Thrive Assessment: Date of Thrive Assessment Date Thrive assessed 07/07/22 11/11/22 08:42 Const General: cooperative Orientation/consciousness: patient oriented x3 Resp Effort & Inspection: normal respiratory effort Auscultation: wheezes scattered wheezes Cardio Rate: regular rate Rhythm: regular rhythm Heart sounds: S1 normal heart sound present and S2 normal heart sound present Neuro General: patient oriented x3 Extrem Right lower extremity: no edema Left lower extremity: no edema Psych Appearance: grossly normal Mental Status: mental status grossly normal Speech and movement: Normal speech and movement present Affect: normal affect Attitude: cooperative Thought process: Normal thought process present Thought content: Normal thought content present Insight: Good insight present (Psych) Judgement: Good judgement present (Psych) Results AMB Urinalysis, Automated UA Leukoctes 0 Jhonny/uL Last Edit by KATHY Valdovinos on 11/11/22 10:14 UA Nitrite Negative Last Edit by KATHY Valdovinos on 11/11/22 10:14 UA Urobilinogen 0.2 mg/dL Last Edit by Chela Swann, RMA on 11/11/22 10:14 UA Protein 15 mg/dL Last Edit by Chela Swann, RMA on 11/11/22 10:14 UA pH 6.0 Last Edit by Cheladigna Swann, RMA on 11/11/22 10:14 UA Blood 0 Frederick/uL Last Edit by Chela Swann, RMA on 11/11/22 10:14 UA Specific [place] 1.015 Last Edit by Chela Swann, RMA on 11/11/22 10:14 UA Ketone Negative Last Edit by Chela Swann, RMA on 11/11/22 10:14 UA Bilirubin 0 mg/dL Last Edit by Chela Swann, RMA on 11/11/22 10:14 UA Glucose 0 mg/dL Last Edit by Chela Swann, RMA on 11/11/22 10:14 Assessment and Plan Assessment & Plan (1) HTN (hypertension): Code(s): I10 - Essential (primary) hypertension (2) New onset right bundle branch block (RBBB): Code(s): I45.10 - Unspecified right bundle-branch block (3) Nicotine dependence, cigarettes, uncomplicated: Comment: (current smoker - onset 15yo, 1ppd x 42yrs, now 5-15cig/day - 40pyh) Code(s): F17.210 - Nicotine dependence, cigarettes, uncomplicated Plan The patient agreed to the use of a biomedical equipment technician for this encounter. Scribed for JAJA Maldonado- by Magali Jimenez biomedical equipment technician, on 11/11/2022 at 08:45 EST. Orders: Orders TSH reflex Free T4 Today I10 - Essential (primary) hypertension Lipid Panel Today I10 - Essential (primary) hypertension AMB EKG-In Office Today I10 - Essential (primary) hypertension Complete Blood Count Auto Diff Today I10 - Essential (primary) hypertension Comprehensive [place]. Panel Fast Today I10 - Essential (primary) hypertension UA CC w/rflx Micro + Cult Today I10 - Essential (primary) hypertension CA echo transthoracic complete Today F17.210 - Nicotine dependence, cigarettes, uncomplicated, I10 - Essential (primary) hypertension, I45.10 - Unspecified right bundle-branch block Referrals Cardiology Referral I45.10 - Unspecified right bundle-branch block Medications: Changed From metoprolol succinate ER 25 mg PO DAILY To metoprolol succinate ER 50 mg PO DAILY 90 tabs 0RF 90 days Coding Level of Care Code Est Pt Level 3 (38565) Diagnoses HTN (hypertension) I10 New onset right bundle branch block (RBBB) I45.10 Nicotine dependence, cigarettes, uncomplicated F17.210
== END 2022-11-11 09:34 | disposition home or self-care (01) ==
PROVIDERS: PCP Nurse Practitioner Family; Visit Provider Nurse Practitioner Family
DX: I10 Essential (primary) hypertension (principal); I45.10 Unspecified right bundle-branch block; F17.210 Nicotine dependence, cigarettes, uncomplicated
CPT/HCPCS: 99213

== ENCOUNTER 2022-11-11 09:57 | Outpatient (AMB) | payer MEDICARE, MEDICAID, SELFPAY ==
--- NOTE | 2022-11-11 09:59 | A.OFFVIS_ITS ---
Intake Intake Visit Reasons: cysto/US(set) Intake Note: Patient is present for Cystoscopy Urology Med: Tadalafil Antibiotic Allergy: None Blood Thinner: None Pharmacy: [facility] Disposable Cystoscope used during Procedure LOT#: [id number] EXP: 07/13/2024 Allergies No Known Allergies Allergy (Verified 11/11/22 10:02) Medication List - Last Reconciled 11/11/22 by Guido Cervantes MD allopurinol 300 mg PO DAILY lisinopril 10 mg PO DAILY metoprolol succinate ER 50 mg PO DAILY 90 days probenecid 0 mg PO BEDTIME tadalafil (Cialis) 20 mg PO DAILY PRN 90 days tadalafil (Cialis) 5 mg PO DAILY 90 days HPI HPI Comments History of Present Illness Details Gigi is a pleasant male. He is a patient of Dr. Noa briscoe. He seen for the following urologic conditions - lower urinary tract symptoms with inco mplete bladder emptying - recurrent UTI - erectile dysfunction Here for cystoscopy Prior discussion regarding suppression with methenamine and vitamin-C verses low-dose antibiotic therapy Cystoscopy - type prostate, mild trabeculation Has had significant improvement now has increased dietary fiber. Constipation was an issue. Bowel motion every 2nd day versus every 4th day Encouraged to maintain fiber intake Recurrent UTI Bladder ultrasound debris noted, prostate 23 cc Prior culture - Klebsiella sensitive to Bactrim PSA 07/22 0.6 Lower urinary tract symptoms Bladder emptying improved with 5 mg daily tadalafil PFSH Medical History Nicotine dependence, cigarettes, uncomplicated Tubular adenoma of colon HTN (hypertension) Gout Surgical History History of elbow surgery History of dental surgery History of tonsillectomy History of appendectomy History of colonoscopy Family History Mother HTN (hypertension) Maternal Uncle Cancer Family/Other Cancer Social History [facility]hold Members: [facility] Alcohol intake: current Alcohol intake frequency: a few times a month Patient Tobacco Use Status: Current everyday Tobacco user Cigarettes Per Day: 10 Years Smoked: (current smoker - onset 15yo, 1ppd x 42yrs, now 5-15cig/day - 40pyh) e-Cigarette/Vaping Use: Never Used Second Hand Smoke Exposure: Yes Substance Use Type: Marijuana service: No Current occupational status: disabled Current occupational exposures/hazards: No Cognitive needs: No Hearing needs: No Vision needs: No Review of Systems Const Denies chills and Denies fever(s) Card Reports no additional complaints and Denies syncope Resp Denies cough GI Denies abdominal pain and Denies heartburn Reports as per HPI and Denies change in libido Neuro Denies syncope Psych Denies change in libido Endo Denies change in libido Physical Exam Const General: cooperative, healthy appearing, comfortable and no acute distress Orientation/consciousness: patient oriented x3 HEENT Face and sinus: Yes normal facial exam Mouth: moist mucous membranes Neck Neck: Yes normal visual inspection, Yes full ROM and Yes trachea midline Chest Chest palpation & inspection: normal inspection of the chest Resp Effort & Inspection: normal respiratory effort, able to speak in complete sentences and no respiratory distress GI Inspection: Yes normal to inspection Back/Spine/Pelvis Cervical Spine: normal cervical lordosis Thoracic/Lumbar Spine: thoracic and lumbar spine normal to inspection Skin General skin exam: no rashes or lesions noted Neuro General: patient oriented x3, gait normal, tone normal and moves all extremities Extrem General: Yes normal to inspection and Yes capillary refill normal Office Procedures Cystoscopy Consent Discussed risk and benefit or proposed procedure with the patient. Information consent for procedure given to the patient. Discussed technical aspects, risks, benefits and alternatives in full. Addressed all of the patient's questions and concerns regarding the procedure. The patient demonstrated knowledge and understanding. They wish to proceed with this procedure. Preparation The patient was prepped in the usual manner. A box machine operator was present and in the room. Genitalia was prepped with betadine solution in a sterile manner. Lidocaine Jelly 2% was placed into the urethra and 16Fr flexible Olympus cystoscope was inserted into the meatus after adequate lubrication. Procedure Meatus circumcised Urethra anterior posterior urethra normal Prostatic Urethra unremarkable, tight bladder neck Bladder examination with retroflexion of cystoscope Bladder Orifices normal shape and position Bladder Capacity medium Trabeculations grade 1 Cellule Formation yes Diverticulum Formation - Mucosal Erythema - Bladder Tumor - 88905-[id number] DISPOSABLE SCOPE URO-G FLEXIBLE SCOPE Procedure code (CPT) selection complete Office Meds lidocaine HCl 2 % mucosal jelly in applicator Performing Provider: Guido Cervantes MD Performing Location: [facility] Administered by: Dionne Helton RN on 11/11/22 10:18 Dose Route Admin Location Dispensed Lot Number Expiration Date NDC Invoice Checker 10 mL intra-urethral 10 mL nitrofurantoin monohydrate/macrocrystals 100 mg capsule Performing Provider: Guido Cervantes MD Performing Location: [facility] Administered by: Dionne Helton RN on 11/11/22 10:18 Dose Route Admin Location Dispensed Lot Number Expiration Date NDC Invoice Checker 100 mg PO 1 cap naproxen 500 mg tablet Performing Provider: Guido Cervantes MD Performing Location: [facility] Administered by: Dionne Helton RN on 11/11/22 10:18 Dose Route Admin Location Dispensed Lot Number Expiration Date NDC Invoice Checker 500 mg PO 1 tab Results AMB Urinalysis, Automated UA Leukoctes 0 Jhonny/uL Last Edit by Chela Swann [facility] on 11/11/22 10:14 UA Nitrite Negative Last Edit by Chela Swann [facility] on 11/11/22 10:14 UA Urobilinogen 0.2 mg/dL Last Edit by Chela Swann [facility] on 11/11/22 10:1 4 UA Protein 15 mg/dL Last Edit by Chela Swann [facility] on 11/11/22 10:14 UA pH 6.0 Last Edit by Chela Swann [facility] on 11/11/22 10:14 UA Blood 0 Frederick/uL Last Edit by Chela Swann [facility] on 11/11/22 10:14 UA Specific [place] 1.015 Last Edit by Chela Swann [facility] on 11/11/22 10: 14 UA Ketone Negative Last Edit by Chela Swann [facility] on 11/11/22 10:14 UA Bilirubin 0 mg/dL Last Edit by Chela Swann [facility] on 11/11/22 10:14 UA Glucose 0 mg/dL Last Edit by Chela Swann [facility] on 11/11/22 10:14 Results Reviewed Results Reviewed: Laboratory Last Values Urine pH (Auto) 6.0 11/11/22 10:05 Specific [place] (Auto) 1.015 11/11/22 10:05 Urine Protein (Auto) 15 mg/dL 11/11/22 10:05 Glucose (UA)(Auto) 0 mg/dL 11/11/22 10:05 Urine Ketones (Auto) Negative 11/11/22 10:05 Urine Blood (Auto) 0 Frederick/uL 11/11/22 10:05 Urine Nitrite (Auto) Negative 11/11/22 10:05 Urine Bilirubin (Auto) 0 mg/dL 11/11/22 10:05 Urine Urobilinogen (Auto) 0.2 mg/dL 11/11/22 10:05 Leukocyte Esterase (Auto) 0 Jhonny/uL 11/11/22 10:05 Assessment & Plan Assessment & Plan (1) Cystitis: Code(s): N30.90 - Cystitis, unspecified without hematuria (2) Dysuria: Code(s): R30.0 - Dysuria Plan Stable bladder Six month follow-up Orders: Orders AMB Urinalysis Automated Today Z13.9 - Encounter for screening, unspecified AMB Cystoscopy Today R33.9 - Retention of urine, unspecified Medications: Refilled tadalafil (Cialis) [facility] DR33 [id number] 5 mg PO DAILY 90 days 90 tabs 0RF Patient Instructions: Imaging studies, laboratory and physical exam results were discussed and reviewed in detail. No major barriers to patient understanding were identified. An opportunity to ask questions regarding the treatment plan was provided. All questions were answered. The patient expressed understanding and agreement with the above treatment plan. The patient is aware they should contact our office by phone for worsening of their current condition or the appearance of new urologic symptoms. Compliance is encouraged with any medications and followup testing that is ordered. It is a privilege to participate in the urologic care of your patient. If you have any questions or concerns regarding treatment for the above conditions, or other urologic issues, please do not hesitate to contact me. The office telephone contact is [phone]. This note is constructed using voice recognition software. While every effort has been made to ensure accuracy webbing seamer pound net errors may have been included. Yours sincerely, Dr Guido Cervantes MD, [facility] - Urology Providers of Expert, Compassionate Care for the Genitourinary System Coding Level of Care Code Est Pt Level 3 (53969) Diagnoses Cystitis N30.90 Dysuria R30.0 CPT Codes Cystoscopy - CPT: 53321-[id number] ([id number])
== END 2022-11-11 10:33 | disposition home or self-care (01) ==
PROVIDERS: PCP Nurse Practitioner Family; Visit Provider Urology
DX: N30.90 Cystitis, unspecified without hematuria (principal); R30.0 Dysuria; R33.9 Retention of urine, unspecified; Z13.9 Encounter for screening, unspecified
CPT/HCPCS: 52000

== ENCOUNTER → 2022-11-11 09:57 | Outpatient (BNVA) | payer MEDICARE, OTHER, SELFPAY | PROVIDERS: PCP Nurse Practitioner Family; Visit Provider Urology | DX: N30.90 Cystitis, unspecified without hematuria (principal); R30.0 Dysuria | CPT/HCPCS: 52000; 81003 ==

== ENCOUNTER → 2022-12-30 08:54 | Outpatient (REF) | payer MEDICARE, OTHER, SELFPAY ==
--- NOTE | 2022-12-30 08:56 | CA_ITS ---
Transthoracic Echocardiogram Patient (Last, First, Middle): Gigi Carranza R Gender: Male Date of : 1965 Age: 57 Procedure Date: 12/30/2022 Procedure Type: Transthoracic Echocardiogram Location: OP Height: 182.88 cm Weight: 95.26 kg BSA: 2.18 m2 Heart Rate: 67 bpm BP: 148 / 82 mmHg Telecom Engineer: SB Referring MD: Sai Wagner [facility] Symptoms: I45.10 - Unspecified right bundle-branch block Study Quality: Adequate ECG Rhythm: Sinus Conclusions: - The left ventricular systolic function is low normal. The calculated ejection fraction is 53% by biplane method. - There is mildly decreased right ventricular systolic function. - No obvious valvular pathology seen on this study. Findings Procedure Information The quality of the study was technically difficult. The study quality is limited by lung artifact. Left Ventricle Normal left ventricular cavity size. There is normal left ventricular wall thickness. The left ventricular systolic function is low normal. The calculated ejection fraction is 53% by biplane method. There is no evidence of regional wall motion abnormalities. Diastolic function is normal for age. Right Ventricle Normal right ventricular cavity size. There is mildly decreased right ventricular systolic function. Atria Both atria are normal in size. Aortic Valve There is a normal trileaflet aortic valve. There is no aortic valve stenosis. There is no aortic valve regurgitation. Mitral Valve There is mild mitral annular calcification. There is no mitral valve regurgitation. There is no mitral valve stenosis. Pulmonic Valve The pulmonic valve is likely normal. Tricuspid Valve Normal tricuspid valve structure. There is no tricuspid valve regurgitation. Tricuspid regurgitation envelope is inadequate for calculation of right ventricular systolic pressure. Great Vessels The asc aorta is normal in size. Venous The inferior vena cava is normal in size and collapses greater than 50% with inspiration. Pericardium/Pleural There is no evidence of pericardial effusion. Prior Study Comparison No prior study available for comparison. Recommendations, Care & Conclusions No obvious valvular pathology seen on this study. Measurements 2D Linear Measurements IVSd: 0.84 0.6-0.9/0.6-1.0 cm LVIDd: 4.94 3.9-5.3/4.2-5.9 cm LVIDd Index: 2.27 2.4-3.2/2.2-3.1 cm/m2 LVIDs: 3.66 2.0-3.6 cm LVPWd: 0.72 0.7-1.1 cm LA Diam: 3.00 2.7-3.8/3.0-4.0 cm LAIDs Index: 1.38 1.5-2.3 cm/m2 LV Mass: 159.97 67-162/88-224 g LV Mass Index: 73.38 43-95/49-115 g/m2 LVOT Diam: 2.30 3.0+(-)1.3 cm 2D Systolic Function EF 4C: 54.00 >55% EF 2C: 53.50 >55% EF BiP: 53.30 >55% Mitral Valve MV Pk E: 0.63 MV PK A: 0.79 MV Decel Time: 196.00 E/A: 0.80 E'Lateral: 8.38 E'Medial: 5.66 E/E' Med: 11.20 E/E' Lat: 7.60 PHT: 57.00 MVA PHT: 3.86 Decel [place]: 3.23 Aortic Valve AoV Pk Ricco: 0.88 AoV Pk Grad: 3.00 ELI: 3.72 LVOT LVOT Pk Ricco: 0.78 LVOT Mn Ricco: 0.55 LVOT VTI: 0.19 LVOT Pk Grad: 2.00 LVOT Mn Grad: 1.00 LVOT Diam: 2.30 LVOT Area: 4.15 Diastolic Function MV Pk E: 0.63 MV Pk A: 0.79 E/A: 0.80 E'Medial: 5.66 E/E' Med: 11.20 E' Laterial: 8.38 E/E' Lat: 7.60 Right Ventricle TAPSE (mm): 16.60 TVS' Ricco: 8.27 Tricuspid Valve RA Press: 3.00 Great Vessels Aorta Sinus of Valsalva: 3.20 2.0-3.5 cm Ao Asc: 3.20 2.1-3.4 cm Pulmonary Valve PV Pk Ricco: 0.81 Peak PV Grad: 3.00 Updated in Other Vendor System with Status of Final Parminder Rebolledo MD electronically signed on 12/30/2022 11:11:38 AM with status of Final
== END ==
LOC: HO.CARD 08:54
PROVIDERS: PCP Nurse Practitioner Family; Visit Provider Nurse Practitioner Family
DX: I45.10 Unspecified right bundle-branch block (principal); I10 Essential (primary) hypertension; F17.210 Nicotine dependence, cigarettes, uncomplicated
CPT/HCPCS: 93306

== ENCOUNTER → 2022-12-30 08:56 | Outpatient (BNV) | payer MEDICARE, MEDICAID, SELFPAY | PROVIDERS: PCP Nurse Practitioner Family; Visit Provider Internal Medicine | DX: I34.81 Nonrheumatic mitral (valve) annulus calcification (principal); I45.10 Unspecified right bundle-branch block | CPT/HCPCS: 93306 ==

== ENCOUNTER 2023-03-09 09:01 | Outpatient (REF) | payer MEDICARE, OTHER, SELFPAY | END 2023-03-09 09:02 | disposition home or self-care (01) | LOC: HO.HMGCLDS 09:01 | PROVIDERS: PCP Nurse Practitioner Family; Visit Provider Nurse Practitioner Family | DX: I10 Essential (primary) hypertension (principal); R82.90 Unspecified abnormal findings in urine | CPT/HCPCS: 36415; 80053; 80061; 81001; 84439; 84443; 85025; 87086; 87088; 87186 ==

== ENCOUNTER 2023-03-24 12:37 | Outpatient (REF) | payer MEDICARE, OTHER, SELFPAY ==
[2023-03-24 14:00] LABS: Appearance Urine Clear; Color Urine Yellow; Glucose Urine UA Negative (Negative); Leukocyte Esterase Urine Trace (Negative); Nitrite Urine Negative (Negative); PH 5.5 (5.0-9.0); Specific Gravity - Urine 1.015 (1.005-1.025); UMIC TRIGGER UACC YES; Urine Blood Negative (Negative); Urine Ketones Negative (Negative); Urine Protein Negative (Neg-Trace)
[2023-03-24 14:10] LABS: Bacteria Urine None Seen (None Seen); Hyaline Casts Urine 0-2 /LPF (0-2); RBC Urine 0-2 /HPF (0-2); Squamous Epithelial Cell Urine 0-2 /HPF (0-2); WBC Urine 0-5 /HPF (0-5)
[2023-03-24 15:08] LABS: TSH reflex Free T4 2.06 uIU/mL (0.32-4.0)
[2023-03-26 02:54] LABS: Thyroid Peroxidase Antibodies 2 IU/mL (<9)
== END 2023-03-24 12:38 | disposition home or self-care (01) ==
LOC: HO.HMGCLDS 12:37
PROVIDERS: PCP Nurse Practitioner Family; Visit Provider Nurse Practitioner Family
DX: R79.89 Other specified abnormal findings of blood chemistry (principal)
CPT/HCPCS: 36415; 81001; 81003; 84443; 86376

== ENCOUNTER 2023-05-13 08:39 | Outpatient (REF) | payer MEDICARE, MEDICAID, SELFPAY | END 2023-05-13 08:40 | disposition home or self-care (01) | LOC: HO.LNP 08:39 | PROVIDERS: PCP Nurse Practitioner Family; Visit Provider Nurse Practitioner Family | DX: N39.0 Urinary tract infection, site not specified (principal); N52.9 Male erectile dysfunction, unspecified; R33.9 Retention of urine, unspecified; Z87.891 Personal history of nicotine dependence; Z79.899 Other long term (current) drug therapy | CPT/HCPCS: 51798; 81003; 87086; 87088; 87186; 99212 ==

== ENCOUNTER 2023-05-13 08:39 | Outpatient (AMB) | payer MEDICARE, MEDICAID, SELFPAY ==
--- NOTE | 2023-05-13 08:59 | MHC.OFFVIS ---
Intake Intake Visit Reasons: 6m/PVR Intake Note: Patient is Present for Follow Up Urology Medication: Tadalafil (5mg/20mg prn) Antibiotic Allergies:None Blood Thinners: None PVR: 17 Patient states that he has been very symptomatic from current infection. Patient states that he went to see primary physician after last visit with MATERIALS DIRECTOR due to still having sypmtoms and was told to wait till he has his follow up with Urology Allergies No Known Allergies Allergy (Verified 05/13/23 20:34) Medication List - Last Reconciled 05/13/23 by JAJA Reyes- allopurinol 300 mg PO DAILY lisinopril 10 mg PO DAILY metoprolol succinate ER 50 mg PO DAILY 90 days probenecid 0 mg PO BEDTIME sulfamethoxazole-trimethoprim 800-160 mg (Bactrim DS) 1 tab PO BID 14 days tadalafil (Cialis) 5 mg PO DAILY 90 days tadalafil (Cialis) 20 mg PO DAILY PRN 90 days HPI HPI Comments History of Present Illness Details Gigi is a pleasant 57-year-old male patient of Dr. English. He has a past medical history of nicotine dependence, hypertension, and gout. He presents to the office today for follow-up of his recurrent urinary tract infections, erectile dysfunction, in lower urinary tract symptoms with incomplete bladder emptying. Previous workup has included a retroperitoneal ultrasound noting right kidney with benign-appearing renal cysts measuring up to 1.5 cm. No follow-up imaging is recommended per radiology report. There is no calculi or lesions noted. Left kidney with no calculi and or lesions noted. Trace left hydronephrosis. The bladder is well distended and normal. Debris within the bladder noted. Prostate volume is approximately 23 mL. He underwent an office cystoscopy with Dr. Cervantes at his last office visit here approximately 6 months ago which noted tight prostate with mild trabeculation. In discussion with the patient today reports noting UTI like symptoms approximately 3 weeks ago however was awaiting today's appointment for further assessment evaluation. In office urinalysis with 3+ leukocytes positive nitrates. He reports noting foul-smelling urine and dysuria. Discussed at length importance of calling office with UTI like symptoms in not awaiting appointment. He reports noting UTI symptoms of dysuria and foul-smelling urine to have resurfaced late last week. In office urinalysis results reviewed with the patient today. 1+ leukocytes and positive nitrates. Discussed treatment of urinary tract infection. When asked patient reports significant improvement in erectile dysfunction with 5 mg of Cialis daily and 10 mg on demand prior to sexual activity. He would like to continue this. Patient PVR 17 mL today. Discussed possible near future suppression therapy with methenamine and vitamin-C verses low-dose antibiotic therapy. When asked he denies urinary urgency, incontinence, nocturia, hematuria, dysuria, flank pain, fever, and or chills. Discussed and stressed at length importance of limiting/quitting smoking, daily exercise/brisk walking, healthy eating habits, and adequate sleep for improvement in urinary symptoms, erectile dysfunction, as well as overall health and well-being. In review of patient's chart it appears PSA 5-0.6. Patient otherwise denies any other issues or concerns at this time. [facility] Medical History Nicotine dependence, cigarettes, uncomplicated Tubular adenoma of colon HTN (hypertension) Gout Surgical History History of elbow surgery History of dental surgery History of tonsillectomy History of appendectomy History of colonoscopy Family History Mother HTN (hypertension) Maternal Uncle Cancer Family/Other Cancer Social History Household Members: Family Housing: Condominium Alcohol intake: current Alcohol intake frequency: a few times a month Patient Tobacco Use Status: Current everyday Tobacco user Cigarettes Per Day: 10 Years Smoked: (current smoker - onset 15yo, 1ppd x 42yrs, now 5-15cig/day - 40pyh) e-Cigarette/Vaping Use: Never Used Second Hand Smoke Exposure: Yes Substance Use Type: Marijuana service: No Current occupational status: disabled Current occupational exposures/hazards: No Cognitive needs: No Hearing needs: No Vision needs: No Review of Systems Const Reports as per HPI Eyes Reports no additional complaints ENT Reports no additional complaints Card Reports as per HPI Resp Reports no additional complaints GI Reports no additional complaints Reports as per HPI Musc Reports no additional complaints Neuro Reports no additional complaints Psych Reports no additional complaints Endo Reports no additional complaints Shar/Lymph Reports no additional complaints Aller/Immun Reports no additional complaints Physical Exam Const General: cooperative, healthy appearing, comfortable, no acute distress, well developed, alert and awake Orientation/consciousness: patient oriented x3 Limitations: no limitations HEENT Head: Yes normal to inspection, Yes normocephalic and Yes atraumatic Ears: hearing grossly normal bilaterally Eyes General: appearance normal, both eyes and all related structures Neck Neck: Yes normal visual inspection and Yes trachea midline Chest Chest palpation & inspection: normal inspection of the chest Resp Effort & Inspection: normal respiratory effort and able to speak in complete sentences Cardio Rate: regular rate GI Inspection: Yes normal to inspection Rectal Exam - Male: Yes other (enlarged prostate ) General: Yes no CVA tenderness Back/Spine/Pelvis Back: no CVA tenderness Skin General skin exam: no rashes or lesions noted Neuro General: patient oriented x3 Extrem General: Yes normal to inspection Psych Appearance: grossly normal and well kempt Mental Status: mental status grossly normal Speech and movement: Normal speech and movement present and Clear speech present Affect: normal affect Attitude: cooperative Thought process: Normal thought process present Thought content: Normal thought content present Insight: Fair insight present (Psych) Judgement: Fair judgement present (Psych) Office Procedures Post Void Residual Post Residual Void Post Void Residual (PVR): 17 [id number] Void Residual by ultrasound Results AMB Urinalysis, Automated UA Leukoctes 500 Jhonny/uL Last Edit by KATHY Valdovinos on 05/13/23 09:12 UA Nitrite Positive Last Edit by KATHY Valdovinos on 05/13/23 09:12 UA Urobilinogen 0.2 mg/dL Last Edit by KATHY Valdovinos on 05/13/23 09:12 UA Protein 15 mg/dL Last Edit by KATHY Valdovinos on 05/13/23 09:12 UA pH 6.0 Last Edit by KATHY Valdovinos on 05/13/23 09:12 UA Blood 10 Frederick/uL Last Edit by KATHY Valdovinos on 05/13/23 09:12 UA Specific [place] 1.015 Last Edit by KATHY Valdovinos on 05/13/23 09:12 UA Ketone Negative Last Edit by KATHY Valdovinos on 05/13/23 09:12 UA Bilirubin 0 mg/dL Last Edit by KATHY Valdovinos on 05/13/23 09:12 UA Glucose 0 mg/dL Last Edit by KATHY Valdovinos on 05/13/23 09:12 Results Reviewed Results Reviewed: Laboratory Last Values Urine pH (Auto) 6.0 05/13/23 09:00 Specific [place] (Auto) 1.015 05/13/23 09:00 Urine Protein (Auto) 15 mg/dL 05/13/23 09:00 Glucose (UA)(Auto) 0 mg/dL 05/13/23 09:00 Urine Ketones (Auto) Negative 05/13/23 09:00 Urine Blood (Auto) 10 Frederick/uL 05/13/23 09:00 Urine Nitrite (Auto) Positive 05/13/23 09:00 Urine Bilirubin (Auto) 0 mg/dL 05/13/23 09:00 Urine Urobilinogen (Auto) 0.2 mg/dL 05/13/23 09:00 Leukocyte Esterase (Auto) 500 Jhonny/uL 05/13/23 09:00 Assessment & Plan Assessment & Plan (1) Complicated urinary tract infection: Code(s): N39.0 - Urinary tract infection, site not specified (2) Recurrent UTI: Code(s): N39.0 - Urinary tract infection, site not specified (3) Erectile dysfunction: Code(s): N52.9 - Male erectile dysfunction, unspecified (4) Incomplete bladder emptying: Code(s): R33.9 - Retention of urine, unspecified Plan In office urinalysis results reviewed with the patient today; as noted above; will send for urine culture. Start Bactrim as discussed and prescribed. Discussed at length potential causes of recurrent urinary tract infections. Discussed potential for suppression therapy given recurrent urinary tract infections. Continue Cialis 5 mg daily with p.r.n. dosing prior to sexual activity; refill provided. Discussed at length lifestyle modifications to assist with erectile dysfunction as well as overall health and well-being. Discussed, educated, and stressed the importance of drinking plenty of water daily. Follow-up in 1 month with PVR; or sooner with any issues, concerns, and or questions. Orders: Orders AMB Post Void Residual by ultrasound Today R33.9 - Retention of urine, unspecified Urine Culture Today N39.0 - Urinary tract infection, site not specified AMB Urinalysis Automated Today Z13.9 - Encounter for screening, unspecified Medications: New sulfamethoxazole-trimethoprim 800-160 mg (Bactrim DS) 1 tab PO BID 14 days 28 tabs 0RF N39.0 - Urinary tract infection, site not specified Refilled tadalafil (Cialis) [facility] DR33 [id number] 5 mg PO DAILY 90 days 90 tabs 0RF tadalafil (Cialis) administer approximately 30min before sexual activity; do not use more than 1 dose per 24hrs [id number] [facility] [id number] Member [id number] 20 mg PO DAILY 90 days PRN 30 tabs 0RF sexual activity Patient Instructions: The patient had an opportunity to ask questions regarding the treatment plan. All questions were answered. Physical exam, labs, and imaging were discussed and reviewed in detail. As well as risks, benefits, and discussion of treatment choices. No major barriers to understanding were identified. The patient expressed understanding and agreement with the above treatment plan. The patient was made aware they should contact our office by phone for worsening of their current condition, the appearance of new symptoms, or with any questions or concerns. Compliance is encouraged with any medications and follow up testing that is ordered. It is a privilege to be allowed the opportunity to participate in? your urological care.? Again, if you have any questions or concerns If you have any questions or concerns please do not hesitate to contact me. The office is [phone]. This note is constructed using voice recognition software. While every effort has been made to ensure accuracy ice cream scooper errors may have been included. Yours sincerely, KENNEDY Reyes Coding Level of Care Code Est Pt Level 4 (41403) Diagnoses Complicated urinary tract infection N39.0 Recurrent UTI N39.0 Erectile dysfunction N52.9 Incomplete bladder emptying R33.9 CPT Codes Post Residual Void - PVR CPT Code: 27490-Josg Void Residual by ultrasound ([id number])
== END 2023-05-13 09:31 | disposition home or self-care (01) ==
PROVIDERS: PCP Nurse Practitioner Family; Visit Provider Nurse Practitioner Family
DX: N39.0 Urinary tract infection, site not specified (principal); N52.9 Male erectile dysfunction, unspecified; R33.9 Retention of urine, unspecified; Z13.9 Encounter for screening, unspecified
CPT/HCPCS: 99214

== ENCOUNTER 2023-05-14 08:32 | Outpatient (AMB) | payer MEDICARE, MEDICAID, SELFPAY ==
[2023-05-14 08:38] VITALS: BP 130/80; PULSE 74; O2SAT 97; BMI 26.8
--- NOTE | 2023-05-14 08:38 | A.OFFPC_ITS ---
Vital Signs 05/14/23 08:38 Height 6 ft 1 in Weight 203 lb BMI 26.8 BP 130/80 Blood Pressure Location Lt brachial Position Sitting Pulse 74 Pulse Source Pulse Oximeter Pulse Oximetry (%) 97 Oxygen Delivery Method Room Air Intake Visit Reasons: 3M Follow up, rescheduled from 02/10 Intake Note: pt is here for 3m [facility] follow up Allergies No Known Allergies Allergy (Verified 05/14/23 09:31) Medication List - Last Reconciled 05/14/23 by KENNEDY Mckinley allopurinol 300 mg PO DAILY blood pressure monitor daily use lisinopril 10 mg PO DAILY metoprolol succinate ER 50 mg PO DAILY 90 days probenecid 0 mg PO BEDTIME sulfamethoxazole-trimethoprim 800-160 mg (Bactrim DS) 1 tab PO BID 14 days tadalafil (Cialis) 5 mg PO DAILY 90 days tadalafil (Cialis) 20 mg PO DAILY PRN 90 days Tobacco use date assessed: 05/14/23 Dental Screening Dental Screen Date: 05/14/23 Did you have a dental visit in the last 12 months?: Yes Did you have a dental problem in the last 6 months where you did not have access to dental care?: No Was dental information given to patient?: Patient has dentist HPI 3M Follow up, rescheduled from 02/10 HPI Details HTN: Blood pressure is stable, managed with lisinopril 10mg and metoprolol 50mg. Pt does not check his blood pressure at home because his machine broke. Will try to prescribe a new machine. Will have pt drop off BPs in the near future. Pt was referred to cardiology in October due to new RBBB, pt says he went but there is no record of this. Will reach out to cardiology to see if he was actually seen. Denies chest pain, shortness of breath, headache, dizziness, and blurred vision. Pt is a smoker, half a pack a day (currently). Pt would like to try to cut back on his own. He is part of our LDCT program, next due for CT in July of this year. Due for PSA (June), will order. sees urology. [facility] Medical History Nicotine dependence, cigarettes, uncomplicated Tubular adenoma of colon HTN (hypertension) Gout Surgical History History of elbow surgery History of dental surgery History of tonsillectomy History of appendectomy History of colonoscopy Family History Mother HTN (hypertension) Maternal Uncle Cancer Family/Other Cancer Social History Household Members: Family Housing: Condominium Alcohol intake: current Alcohol intake frequency: a few times a month Patient Tobacco Use Status: Current everyday Tobacco user Cigarettes Per Day: 10 Years Smoked: (current smoker - onset 15yo, 1ppd x 42yrs, now 5-15cig/day - 40pyh) e-Cigarette/Vaping Use: Never Used Second Hand Smoke Exposure: Yes Substance Use Type: Marijuana service: No Current occupational status: disabled Current occupational exposures/hazards: No Cognitive needs: No Hearing needs: No Vision needs: No Questionnaire PHQ-9 Over the last 2 weeks, how often have you been bothered by any of the following problems? 1. Little interest or pleasure in doing things: more than half the days 2. Feeling down, depressed, or hopeless: not at all 3. Trouble falling or staying asleep, or sleeping too much: more than half the days 4. Feeling tired or having little energy: not at all 5. Poor appetite or overeating: not at all 6. Feeling bad about yourself - or that you are a failure or have let yourself or your family down: not at all 7. Trouble concentrating on things, such as reading the newspaper or watching television: not at all 8. Moving or speaking so slowly that other people could have noticed. Or the opposite - being so fidgety or restless that you have been moving around a lot more than usual: not at all 9. Thoughts that you would be better off or of hurting yourself in some way: not at all Total score: 4 Depression Screening Interpretation: Negative Depression Screening Done: Yes 84385 - PHQ-9 Billing: Yes Source: Developed by Drs. Efe Dalton, Sofia Crook, Idris Garay and colleagues, with an educational kaci from [employer]. Thrive Questionnaire Date Thrive assessed: 05/14/23 I am a: Patient What is your living situation today?: I have a steady place to live Within the past 12 months, did the food you bought not last and you didn't have the money to get more?: Never true Within the past 12 months, did you worry whether your food would run out before you got money to buy more?: Never true Do you have trouble paying for medicines?: No Do you have trouble getting transportation to medical appointments?: No Do you have trouble paying your heating and electricity bill?: No Do you have trouble taking care of your child, family member or friend?: No Do you have trouble with day-to-day activities such as bathing, preparing meals, shopping, managing finances, etc.?: No Are you currently unemployed and looking for a job?: No Are you interested in more education?: No Please select the resources that you would like help with: None Currently or been in a relationship where the following occur: no concerns reported THRIVE Score: 0 AUDIT C Alcohol Use Questionnaire (AUDIT-C) 1. How often do you have a drink containing alcohol?: 2-3 times a week 2. How many drinks containing alcohol do you have on a typical day when you are drinking?: 5 or 6 3. How often do you have six or more drinks on one occasion?: Daily or almost daily Total Score: 9 Score Reviewed/Action Taken: Yes ZARI-7 AMB Questionnaire ZARI-7 Date ZARI - 7 assessed: 05/14/23 Feeling nervous, anxious, or on edge: 0 = Not at all Not being able to stop or control worryin = Not at all Worrying too much about different things: 0 = Not at all Trouble relaxin = Not at all Being so restless that it is hard to sit still: 0 = Not at all Becoming easily annoyed or irritable: 0 = Not at all Feeling afraid as if something awful might happen: 0 = Not at all Total ZARI-7 score (0-4 normal; 5-9 mild; 10-14 moderate; 15-21 severe): 0 Source: Developed by Drs. Efe Dalton, Idris Ruth and colleagues, with an educational kaci from [employer]. ZARI-7 Assessment Billing ZARI-7 Assessment Tool: ZARI-7 Assessment 44136 Review of Systems Const Reports as per HPI Physical exam (Primary Care) Vital Signs: Last Vital Signs Pulse 74 05/14/23 08:38 BP 130/80 05/14/23 08:38 Pulse Ox 97 05/14/23 08:38 Oxygen Delivery Method Room Air 05/14/23 08:38 BMI result Body Mass Index 26.8 Tobacco/Smoking Status: Tobacco use Status Tobacco use date assessed 05/14/23 05/14/23 08:43 Patient Tobacco Use Status Current everyday Tobacco 05/14/23 08:39 e-Cigarette/Vaping Use Never Used 05/14/23 08:39 PHQ-9: PHQ-9 Score PHQ-9: Total score 4 05/14/23 08:44 Depression Screening Interpretation: Negative Thrive Assessment: Date of Thrive Assessment Date Thrive assessed 05/14/23 05/14/23 08:44 Currently or been in a relationship where the following occur: no concerns reported Const General: cooperative Orientation/consciousness: patient oriented x3 Resp Effort & Inspection: normal respiratory effort Auscultation: clear to auscultation bilaterally and diminished lung sounds Cardio Rate: regular rate Rhythm: regular rhythm Heart sounds: S1 normal heart sound present and S2 normal heart sound present Neuro General: patient oriented x3 Extrem Right lower extremity: no edema Left lower extremity: no edema Psych Appearance: grossly normal Mental Status: mental status grossly normal Speech and movement: Normal speech and movement present Affect: normal affect Attitude: cooperative Thought process: Normal thought process present Thought content: Normal thought content present Insight: Good insight present (Psych) Judgement: Good judgement present (Psych) Assessment and Plan Assessment & Plan (1) HTN (hypertension): Code(s): I10 - Essential (primary) hypertension Plan: Labs ordered (2) Screening for prostate cancer: Code(s): Z12.5 - Encounter for screening for malignant neoplasm of prostate Plan: PSA ordered (3) New onset right bundle branch block (RBBB): Code(s): I45.10 - Unspecified right bundle-branch block Plan: seeing if pt followed up at cardiology Plan The patient agreed to the use of a medical and health services manager for this encounter. Scribed for KENNEDY Maldonado by Magali Tony, medical and health services manager, on 05/14/2023 at 09:00 EST. Orders: Orders Comprehensive [place]. Panel Fast Today I10 - Essential (primary) hypertension Lipid Panel Today I10 - Essential (primary) hypertension Prostate Specific Antigen Scr Today Z12.5 - Encounter for screening for m alignant neoplasm of prostate Complete Blood Count Auto Diff Today I10 - Essential (primary) hypertension TSH reflex Free T4 Today I10 - Essential (primary) hypertension UA CC w/rflx Micro + Cult Today I10 - Essential (primary) hypertension AMB EKG-In Office Today I10 - Essential (primary) hypertension Medications: New blood pressure monitor daily use 1 ea 0RF HTN Coding Level of Care Code Est Pt Level 3 (24818) Diagnoses HTN (hypertension) I10 Screening for prostate cancer Z12.5 New onset right bundle branch block (RBBB) I45.10 Additional Codes ZARI-7 Assessment Billing - ZARI-7 Assessment Tool: ZARI-7 Assessment 37264 ([id number])
== END 2023-05-14 09:28 | disposition home or self-care (01) ==
PROVIDERS: PCP Nurse Practitioner Family; Visit Provider Nurse Practitioner Family
DX: I10 Essential (primary) hypertension (principal); Z12.5 Encounter for screening for malignant neoplasm of prostate; I45.10 Unspecified right bundle-branch block
CPT/HCPCS: 99213

== ENCOUNTER 2023-07-09 12:32 | Outpatient (REF) | payer MEDICARE, MEDICAID, SELFPAY ==
[2023-07-09 13:26] LABS: Appearance Urine Clear; Color Urine Yellow; Glucose Urine UA Negative (Negative); Leukocyte Esterase Urine Large (3+) (Negative); Nitrite Urine Positive (Negative); Specific Gravity - Urine <= 1.005 (1.005-1.025); UMIC TRIGGER UA YES; Urine Blood Negative (Negative); Urine Ketones Negative (Negative); Urine Protein Negative (Neg-Trace)
[2023-07-09 13:29] LABS: Bacteria Urine 4+ (None Seen); Hyaline Casts Urine 0-2 /LPF (0-2); RBC Urine 0-2 /HPF (0-2); Squamous Epithelial Cell Urine 0-2 /HPF (0-2); WBC Urine 21-50 /HPF (0-5)
== END 2023-07-09 12:33 | disposition home or self-care (01) ==
LOC: HO.HMGCLDS 12:32
PROVIDERS: PCP Nurse Practitioner Family; Visit Provider Nurse Practitioner Family
DX: N39.0 Urinary tract infection, site not specified (principal)
CPT/HCPCS: 81001; 87086; 87088; 87186

== ENCOUNTER 2023-08-25 14:25 | Outpatient (REF) | payer MEDICARE, MEDICAID, SELFPAY | END 2023-08-25 14:26 | disposition home or self-care (01) | LOC: HO.LNP 14:25 | PROVIDERS: PCP Nurse Practitioner Family; Visit Provider Nurse Practitioner Family | DX: N39.0 Urinary tract infection, site not specified (principal); N52.9 Male erectile dysfunction, unspecified; R33.9 Retention of urine, unspecified; Z79.899 Other long term (current) drug therapy | CPT/HCPCS: 51798; 81003; 87086; 99212 ==

== ENCOUNTER 2023-08-25 14:25 | Outpatient (AMB) | payer MEDICARE, MEDICAID, SELFPAY ==
--- NOTE | 2023-08-25 14:25 | A.OFFVIS_ITS ---
Intake Visit Reasons: 1m follow up Intake Note: Patient is Present for Follow Up Urology Medication: Tadalafil Antibiotic Allergies:None Blood Thinners: None PVR: 114ml's Instrumentation Fitter Required: No Allergies No Known Allergies Allergy (Verified 08/25/23 15:39) Medication List - Last Reconciled 08/25/23 by KENNEDY Reyes allopurinol 300 mg PO DAILY ascorbic acid (vitamin C) 1 g PO DAILY 90 days blood pressure monitor daily use levofloxacin 500 mg PO DAILY 7 days lisinopril 10 mg PO DAILY methenamine hippurate 1 g PO DAILY 90 days metoprolol succinate ER 50 mg PO DAILY 90 days probenecid 0 mg PO BEDTIME tadalafil (Cialis) 5 mg PO DAILY 90 days HPI Comments Details: Gigi is a pleasant 58-year-old male patient of Dr. English. He has a past medical history of nicotine dependence, hypertension, and gout. He presents to the office today for follow-up of his recurrent urinary tract infect ions, erectile dysfunction, in lower urinary tract symptoms with incomplete bladder emptying. In discussion with the patient today he reports having not completed antibiotic therapy as prescribed as he was out in the sun and did not want to get sun burned. Discussed and stressed the importance of taking medications as prescribed. Previous workup has included a retroperitoneal ultrasound noting right kidney with benign-appearing renal cysts measuring up to 1.5 cm. No follow-up imaging is recommended per radiology report. There is no calculi or lesions noted. Left kidney with no calculi and or lesions noted. Trace left hydronephrosis. The bladder is well distended and normal. Debris within the bladder noted. Prostate volume is approximately 23 mL. He underwent an office cystoscopy with Dr. Cervantes at his last office visit here approximately 6 months ago which noted tight prostate with mild trabeculation. In discussion with the patient today reports noting continuation of dysuria. In office urinalysis with 2+ leukocytes negative nitrates. Discussed treatment of urinary tract infection. When asked patient reports significant improvement in erectile dysfunction with 5 mg of Cialis daily however since stopped taking the medication as he had an abnormal EKG with PCP and felt this could can be contributing to abnormal EKG reading. Discussed increase in PVR since last office visit. Previous PVR 17 mL. Today PVR 114ml's. He otherwise denies urinary urgency, incontinence, nocturia, hematuria, dysuria, flank pain, fever, and or chills. Discussed and stressed at length importance of limiting/quitting smoking, daily exercise/brisk walking, healthy eating habits, and adequate sleep for improvement in urinary symptoms, erectile dysfunction, as well as overall health and well-being. In review of patient's chart it appears PSA 07/22-0.6. Patient otherwise denies any other issues or concerns at this time. In review of patients charts urine cultures 07/23, 05/23, 03/25, 09/21, 07/22, 05/22, 12/20 all noted Klebsiella pneumoniae. Patient with previous microgen 11/22 that noted Klebsiella pneumoniae and Raoultella omithinolytica. [facility] Medical History Nicotine dependence, cigarettes, uncomplicated Tubular adenoma of colon HTN (hypertension) Gout Surgical History History of elbow surgery History of dental surgery History of tonsillectomy History of appendectomy History of colonoscopy Family History Mother HTN (hypertension) Maternal Uncle Cancer Family/Other Cancer Social History Household Members: Family Housing: Condominium Alcohol intake: current Alcohol intake frequency: a few times a month Patient Tobacco Use Status: Current everyday Tobacco user Cigarettes Per Day: 10 Years Smoked: (current smoker - onset 15yo, 1ppd x 42yrs, now 5-15cig/day - 40pyh) e-Cigarette/Vaping Use: Never Used Second Hand Smoke Exposure: Yes Substance Use Type: Marijuana service: No Current occupational status: disabled Current occupational exposures/hazards: No Cognitive needs: No Hearing needs: No Vision needs: No Review of Systems Const Reports as per HPI Eyes Reports no additional complaints ENT Reports no additional complaints Card Reports as per HPI Resp Reports no additional complaints GI Reports no additional complaints Reports as per HPI Musc Reports no additional complaints Neuro Reports no additional complaints Psych Reports no additional complaints Endo Reports no additional complaints Shar/Lymph Reports no additional complaints Aller/Immun Reports no additional complaints Physical Exam Const General: cooperative, healthy appearing, comfortable, no acute distress, well developed, alert and awake Orientation/consciousness: patient oriented x3 Limitations: no limitations HEENT Head: Yes normal to inspection, Yes normocephalic and Yes atraumatic Ears: hearing grossly normal bilaterally Eyes General: appearance normal, both eyes and all related structures Neck Neck: Yes normal visual inspection and Yes trachea midline Chest Chest palpation & inspection: normal inspection of the chest Resp Effort & Inspection: normal respiratory effort and able to speak in complete sentences Cardio Rate: regular rate GI Inspection: Yes normal to inspection Rectal Exam - Male: Yes other (enlarged prostate ) General: Yes no CVA tenderness Back/Spine/Pelvis Back: no CVA tenderness Skin General skin exam: no rashes or lesions noted Neuro General: patient oriented x3 Extrem General: Yes normal to inspection Psych Appearance: grossly normal and well kempt Mental Status: mental status grossly normal Speech and movement: Normal speech and movement present and Clear speech present Affect: normal affect Attitude: cooperative Thought process: Normal thought process present Thought content: Normal thought content present Insight: Fair insight present (Psych) Judgement: Fair judgement present (Psych) Office Procedures Post Void Residual Post Residual Void Post Void Residual (PVR): 114 21050-Krjt Void Residual by ultrasound Results AMB Urinalysis, Automated UA Leukoctes 125 Jhonny/uL Last Edit by Fotoshkola on 08/25/23 14:41 UA Nitrite Negative Last Edit by Fotoshkola on 08/25/23 14:41 UA Urobilinogen 0.2 mg/dL Last Edit by Fotoshkola on 08/25/23 14:41 UA Protein 0 mg/dL Last Edit by Fotoshkola on 08/25/23 14:41 UA pH 6.0 Last Edit by Fotoshkola on 08/25/23 14:41 UA Blood 0 Frederick/uL Last Edit by Fotoshkola on 08/25/23 14:41 UA Specific [place] 1.015 Last Edit by Fotoshkola on 08/25/23 14:41 UA Ketone Positive Last Edit by Fotoshkola on 08/25/23 14:41 UA Bilirubin 0 mg/dL Last Edit by Fotoshkola on 08/25/23 14:41 UA Glucose 0 mg/dL Last Edit by Fotoshkola on 08/25/23 14:41 Results Reviewed Results Reviewed: Laboratory Last Values Urine pH (Auto) 6.0 08/25/23 14:31 Specific [place] (Auto) 1.015 08/25/23 14:31 Urine Protein (Auto) 0 mg/dL 08/25/23 14:31 Glucose (UA)(Auto) 0 mg/dL 08/25/23 14:31 Urine Ketones (Auto) Positive 08/25/23 14:31 Urine Blood (Auto) 0 Frederick/uL 08/25/23 14:31 Urine Nitrite (Auto) Negative 08/25/23 14:31 Urine Bilirubin (Auto) 0 mg/dL 08/25/23 14:31 Urine Urobilinogen (Auto) 0.2 mg/dL 08/25/23 14:31 Leukocyte Esterase (Auto) 125 Jhonny/uL 08/25/23 14:31 Assessment & Plan Assessment & Plan (1) Complicated urinary tract infection: Code(s): N39.0 - Urinary tract infection, site not specified Category: Medical (2) Recurrent UTI: Code(s): N39.0 - Urinary tract infection, site not specified Category: Medical (3) Erectile dysfunction: Code(s): N52.9 - Male erectile dysfunction, unspecified Category: Medical (4) Incomplete bladder emptying: Code(s): R33.9 - Retention of urine, unspecified Category: Medical Plan In office urinalysis results reviewed with the patient today; as noted above; will send for urine culture. Start levofloxacin as discussed and prescribed. Discussed, educated, and stressed the importance of taking medications as prescribed. Discussed continuation of 5 mg of Cialis daily as this had been potentially helping with incomplete bladder emptying; however will DC p.r.n. 20 mg of Cialis prior to sexual activity as patient reports he had not been utilizing this as he does not have a partner at this time. Discussed at length potential causes of recurrent urinary tract infections. Start methenamine and vitamin-C after completion of antibiotic therapy. Continue Cialis 5 mg daily with p.r.n. dosing prior to sexual activity; refill provided. Discussed at length lifestyle modifications to assist with erectile dysfunction as well as overall health and well-being. Discussed, educated, and stressed the importance of drinking plenty of water daily. Follow-up in 1-3 month with PVR; or sooner with any issues, concerns, and or questions. Orders: Orders AMB Urinalysis Automated Today Z13.9 - Encounter for screening, unspecified AMB Post Void Residual by ultrasound Today N39.0 - Urinary tract infection, site not specified Urine Culture Today N39.0 - Urinary tract infection, site not specified Medications: New levofloxacin 500 mg PO DAILY 7 days 7 tabs 0RF N39.0 - Urinary tract infection, site not specified methenamine hippurate Start once completed antibiotic therapy for active urinary tract infection. Discussed importance of holding when on treatment for active UTI 1 g PO DAILY 90 days 90 tabs 1RF N39.0 - Urinary tract infection, site not specified ascorbic acid (vitamin C) 1 g PO DAILY 90 days 90 tabs 1RF N39.0 - Urinary tract infection, site not specified Discontinued tadalafil (Cialis) administer approximately 30min before sexual activity; do not use more than 1 dose per 24hrs [id number] [facility] [id number] Member [id number] Discontinued Reason: Doctor's Order 20 mg PO DAILY 90 days PRN 30 tabs 0RF sexual activity Patient Instructions: The patient had an opportunity to ask questions regarding the treatment plan. All questions were answered. Physical exam, labs, and imaging were discussed and reviewed in detail. As well as risks, benefits, and discussion of treatment choices. No major barriers to understanding were identified. The patient expressed understanding and agreement with the above treatment plan. The patient was made aware they should contact our office by phone for worsening of their current condition, the appearance of new symptoms, or with any questions or concerns. Compliance is encouraged with any medications and follow up testing that is ordered. It is a privilege to be allowed the opportunity to participate in? your urological care.? Again, if you have any questions or conc erns If you have any questions or concerns please do not hesitate to contact me. The office is [phone]. This note is constructed using voice recognition software. While every effort has been made to ensure accuracy designer architect errors may have been included. Yours sincerely, KENNEDY Reyes Coding Level of Care Code Est Pt Level 4 (43712) Complex EM visit Add On G2211 Diagnoses Complicated urinary tract infection N39.0 Recurrent UTI N39.0 Erectile dysfunction N52.9 Incomplete bladder emptying R33.9 CPT Codes Post Residual Void - PVR CPT Code: 77145-Rzzo Void Residual by ultrasound ([id number])
== END 2023-08-25 14:57 | disposition home or self-care (01) ==
PROVIDERS: PCP Nurse Practitioner Family; Visit Provider Nurse Practitioner Family
DX: N39.0 Urinary tract infection, site not specified (principal); N52.9 Male erectile dysfunction, unspecified; R33.9 Retention of urine, unspecified; Z13.9 Encounter for screening, unspecified
CPT/HCPCS: 99214; G2211

== ENCOUNTER 2023-09-29 09:30 | Outpatient (AMB) | payer MEDICARE, MEDICAID, SELFPAY ==
--- NOTE | 2023-09-29 09:37 | A.OFFPC_ITS ---
Vital Signs 09/29/23 09:39 Height 6 ft 1 in Weight 201 lb BMI 26.5 BP 128/80 Blood Pressure Location Rt brachial Position Sitting Pulse 81 Pulse Source Pulse Oximeter Pulse Oximetry (%) 96 Oxygen Delivery Method Room Air Intake Visit Reasons: 3M F/U BP HTN Intake Note: Patient here for HTN f/u. pt would also like to have spots on skin looked at that have been present for about 2 months. Allergies No Known Allergies Allergy (Verified 09/29/23 09:40) Tobacco use date assessed: 05/14/23 Dental Screening Dental Screen Date: 05/14/23 HPI 3M F/U BP HTN HPI Details HTN: Blood pressure is stable, managed with lisinopril 10mg and metoprolol 50mg. Denies chest pain, shortness of breath, headache, dizziness, and blurred vision. Encouraged pt to have labs drawn that were ordered in April. Pt reports noticing a darker lesion to his left upper cheek one month ago. He also has a similar lesion to his left ankle. Will refer to derm. Pt has an upcoming appointment with cardiology. [facility] Medical History Nicotine dependence, cigarettes, uncomplicated Tubular adenoma of colon HTN (hypertension) Gout Surgical History History of elbow surgery History of dental surgery History of tonsillectomy History of appendectomy History of colonoscopy Family History Mother HTN (hypertension) Maternal Uncle Cancer Family/Other Cancer Social History Household Members: Family Housing: Condominium Alcohol intake: current Alcohol intake frequency: a few times a month Patient Tobacco Use Status: Current everyday Tobacco user Cigarettes Per Day: 10 Years Smoked: (current smoker - onset 15yo, 1ppd x 42yrs, now 5-15cig/day - 40pyh) e-Cigarette/Vaping Use: Never Used Second Hand Smoke Exposure: Yes Substance Use Type: Marijuana service: No Current occupational status: disabled Current occupational exposures/hazards: No Cognitive needs: No Hearing needs: No Vision needs: No Questionnaire PHQ-9 Over the last 2 weeks, how often have you been bothered by any of the following problems? 1. Little interest or pleasure in doing things: not at all 2. Feeling down, depressed, or hopeless: not at all 3. Trouble falling or staying asleep, or sleeping too much: not at all 4. Feeling tired or having little energy: not at all 5. Poor appetite or overeating: not at all 6. Feeling bad about yourself - or that you are a failure or have let yourself or your family down: not at all 7. Trouble concentrating on things, such as reading the newspaper or watching television: not at all 8. Moving or speaking so slowly that other people could have noticed. Or the opposite - being so fidgety or restless that you have been moving around a lot more than usual: not at all 9. Thoughts that you would be better off or of hurting yourself in some way: not at all Total score: 0 Source: Developed by Drs. Efe Dalton, Sofia Crook, Idris Garay and colleagues, with an educational kaci from [employer]. Thrive Questionnaire Date Thrive assessed: 05/14/23 I am a: Patient What is your living situation today?: I have a steady place to live Within the past 12 months, did the food you bought not last and you didn't have the money to get more?: Never true Within the past 12 months, did you worry whether your food would run out before you got money to buy more?: Never true Do you have trouble paying for medicines?: No Do you have trouble getting transportation to medical appointments?: No Do you have trouble paying your heating and electricity bill?: No Do you have trouble taking care of your child, family member or friend?: No Do you have trouble with day-to-day activities such as bathing, preparing meals, shopping, managing finances, etc.?: No Are you currently unemployed and looking for a job?: I choose not to answer this question Are you interested in more education?: Yes Please select the resources that you would like help with: Housing/Half-Way Currently or been in a relationship where the following occur: No concerns reported THRIVE Score: 0 AUDIT C Alcohol Use Questionnaire (AUDIT-C) 1. How often do you have a drink containing alcohol?: 2-3 times a week 2. How many drinks containing alcohol do you have on a typical day when you are drinking?: 3 or 4 3. How often do you have six or more drinks on one occasion?: Weekly Total Score: 7 ZARI-7 AMB Questionnaire ZARI-7 Date ZARI - 7 assessed: 05/14/23 Feeling nervous, anxious, or on edge: 0 = Not at all Not being able to stop or control worryin = Not at all Worrying too much about different things: 0 = Not at all Trouble relaxin = Not at all Being so restless that it is hard to sit still: 0 = Not at all Becoming easily annoyed or irritable: 0 = Not at all Feeling afraid as if something awful might happen: 0 = Not at all Total ZARI-7 score (0-4 normal; 5-9 mild; 10-14 moderate; 15-21 severe): 0 Source: Developed by Drs. Efe Dalton, Sofia Crook, Idris Garay and colleagues, with an educational kaci from [employer]. Review of Systems Const Reports as per HPI Physical exam (Primary Care) Vital Signs: Last Vital Signs Pulse 81 09/29/23 09:39 BP 128/80 09/29/23 09:39 Pulse Ox 96 09/29/23 09:39 Oxygen Delivery Method Room Air 09/29/23 09:39 BMI result Body Mass Index 26.5 Tobacco/Smoking Status: Tobacco use Status Tobacco use date assessed 05/14/23 09/29/23 09:39 Patient Tobacco Use Status Current everyday Tobacco 09/29/23 09:39 e-Cigarette/Vaping Use Never Used 09/29/23 09:39 PHQ-9: PHQ-9 Score PHQ-9: Total score 0 09/29/23 09:39 Thrive Assessment: Date of Thrive Assessment Date Thrive assessed 05/14/23 09/29/23 09:39 Currently or been in a relationship where the following occur: No concerns reported Const General: cooperative Orientation/consciousness: patient oriented x3 Resp Other: lungs diminished though clear Effort & Inspection: normal respiratory effort Cardio Other: difficult to auscultate Rate: regular rate Rhythm: regular rhythm Heart sounds: S1 normal heart sound present and S2 normal heart sound present Skin Other: left cheek along zygomatic arch lateral aspect with macular darker bluish les ion, also noted to anterior medial aspect of left ankle Neuro General: patient oriented x3 Extrem Right lower extremity: no edema Left lower extremity: no edema Psych Appearance: grossly normal Mental Status: mental status grossly normal Speech and movement: Normal speech and movement present Affect: normal affect Attitude: cooperative Thought process: Normal thought process present Thought content: Normal thought content present Insight: Good insight present (Psych) Judgement: Good judgement present (Psych) Assessment and Plan Assessment & Plan (1) Skin lesions: Code(s): L98.9 - Disorder of the skin and subcutaneous tissue, unspecified Plan: Referred to derm (2) HTN (hypertension): Code(s): I10 - Essential (primary) hypertension Plan: stable, awaiting labs Plan The patient agreed to the use of a certified medical coder for this encounter. Scribed for KENNEDY Maldonado by Magali Jimenez certified medical coder, on 09/29/2023 at 09:50 EST. Orders: Referrals Dermatology Referral L98.9 - Disorder of the skin and subcutaneous tissue, unspecified Coding Level of Care Code Est Pt Level 3 (87492) Diagnoses Skin lesions L98.9 HTN (hypertension) I10
[2023-09-29 09:39] VITALS: BP 128/80; PULSE 81; O2SAT 96; BMI 26.5
== END 2023-09-29 10:01 | disposition home or self-care (01) ==
PROVIDERS: PCP Nurse Practitioner Family; Visit Provider Nurse Practitioner Family
DX: L98.9 Disorder of the skin and subcutaneous tissue, unspecified (principal); I10 Essential (primary) hypertension
CPT/HCPCS: 99213

== ENCOUNTER 2023-09-29 10:01 | Outpatient (REF) | payer MEDICARE, MEDICAID, SELFPAY ==
[2023-09-29 13:33] LABS: MANUAL DIFF FLAG NO
[2023-09-29 14:12] LABS: Basophils Absolute Auto 0.1 X10*3/uL (0.0-0.2); Eosinophils Absolute Auto 0.2 X10*3/uL (0.0-0.4); Eosinophils Percent Auto 2.7 % (0-4); Hematocrit 50.5 % (42.0-52.0); Hemoglobin 17.3 g/dl (14.0-18.0); Imm Gran Abs Auto 0.02 X10*3/uL (0.00-0.03); Imm Gran Pct Auto 0.3 % (0.0-0.4); Lymphocytes Absolute Auto 1.7 X10*3/uL (1.2-4.9); Lymphocytes Percent Auto 23.8 % (20-40); Mean Corpuscular HGB Conc 34.3 g/dl (31.0-36.0); Mean Corpuscular Volume 108.1 fL (80.0-98.0); Mean Platelet Volume 10.2 fL (9.4-12.4); Monocytes Absolute Auto 0.6 X10*3/uL (0.1-1.2); Monocytes Percent Auto 8.6 % (2-11); Neutrophils Absolute Auto 4.5 x10*3/uL (2.0-8.3); Neutrophils Percent Auto 63.6 % (45-73); Platelet Count 161 X10*3/uL (160-400); Red Blood Count 4.67 X10*6/uL (4.60-5.80); Red Cell Distribution Width 13.5 % (11.0-16.0); White Blood Count 7.1 X10*3/uL (4.8-10.8)
[2023-09-29 14:18] LABS: Alanine Aminotransferase 6 U/L (0-40); Albumin Level 4.3 g/dL (3.5-5.0); Alkaline Phosphatase 69 U/L (39-117); Anion Gap 13 (12-20); Aspartate Amino Transferase 16 U/L (5-37); Bilirubin Total 0.6 mg/dL (0.0-1.0); Blood Urea Nitrogen 10 mg/dL (9-16); Carbon Dioxide 28 mmol/L (22-29); Chloride 101 mmol/L (96-108); Cholesterol 155 mg/dL (<200); Estimated Glomerular Filt Rate > 60; Glucose Fasting 109 mg/dL (60-99); HDL Cholesterol 48 mg/dL (>40); LDL Cholesterol Calculated 88 mg/dL (<100); Potassium 4.5 mmol/L (3.3-5.1); Sodium 137 mmol/L (135-145); Total Protein 7.3 g/dL (6.5-8.0); Triglycerides 97 mg/dL (<150)
[2023-09-29 14:49] LABS: TSH reflex Free T4 3.41 uIU/mL (0.32-4.0)
== END 2023-09-29 10:02 | disposition home or self-care (01) ==
LOC: HO.HMGCLDS 10:01
PROVIDERS: PCP Nurse Practitioner Family; Visit Provider Nurse Practitioner Family
DX: I10 Essential (primary) hypertension (principal); Z12.5 Encounter for screening for malignant neoplasm of prostate
CPT/HCPCS: 36415; 80053; 80061; 84153; 84443; 85025

== ENCOUNTER 2023-11-09 09:41 | Outpatient (REF) | payer MEDICARE, MEDICAID, SELFPAY ==
--- NOTE | ~2023-11-09 | CT_ITS ---
EXAMINATION: CT LOW-DOSE SCREENING CHEST WITHOUT CONTRAST CLINICAL INFORMATION: Nicotine dependence, cigarettes, uncomplicated. The patient is a current smoker with a 42 pack-year history of smoking. COMPARISON: CT chest 08/15/2022. TECHNIQUE: Multidetector volumetric CT imaging of the chest is performed on a Siemens SOMATOM Definition scanner without contrast using low dose technique. Additional 2D coronal and sagittal reformatted images and axial 3D maximum intensity projection (MIP) images are generated on the CT workstation. This CT examination was performed using dose optimization techniques as appropriate, variously including the following: *Automated exposure control *Adjustment of mA and/or kV according to patient size (this includes techniques or standardized protocols for targeted exams where dose is matched to indication/reason for exam; i.e. extremities or head) *Use of iterative reconstruction technique TOTAL EXAM DLP: 58 mGy-cm. CTDIvol: 1.56 mGy. FINDINGS: PULMONARY NODULES: No suspicious pulmonary nodules. LUNGS: Lungs bilaterally symmetrically expanded. There is mild emphysema present along with mild bronchial thickening. A saber-sheath trachea is seen. No effusion or pneumothorax. Central airways patent. MEDIASTINUM: No mediastinal, hilar or axillary adenopathy or free fluid collection. CORONARY ARTERY CALCIFICATION: Extensive. THYROID GLAND: Unremarkable to the extent seen. CARDIOVASCULAR STRUCTURES: Aortic and heart size normal. No pericardial effusion. CHEST WALL/AXILLA: Unremarkable. UPPER ABDOMEN: Included portions of the solid organs in the upper abdomen unremarkable on noncontrast imaging. OSSEOUS STRUCTURES: No suspicious focal findings. CT/CT lung screening IMPRESSION: No findings seen suspicious for malignancy. ASSESSMENT: 1. Lung-RADS Category 1: Negative. There are no nodules or there are definitely benign nodules. N/A 2. Lung-RADS Category S: Negative. There are no clinically significant or potentially clinically significant findings not related to the lungs requiring urgent additional evaluation. RECOMMENDATION: Continued routine annual low-dose CT lung screening in 1 year is recommended. An order for CT CHEST LOW DOSE CANCER SCREENING ([id number]) can be placed. Electronically signed by: Devin Cohen MD 01/04/2024 08:01 AM [facility]
== END 2023-11-09 09:42 | disposition home or self-care (01) ==
LOC: HO.CT 09:41
PROVIDERS: PCP Nurse Practitioner Family; Visit Provider Physician Assistant Medical
DX: Z12.2 Encounter for screening for malignant neoplasm of respiratory organs (principal); F17.210 Nicotine dependence, cigarettes, uncomplicated
CPT/HCPCS: 71271

== ENCOUNTER 2023-11-17 08:30 | Outpatient (REF) | payer MEDICARE, MEDICAID, SELFPAY | END 2023-11-17 08:31 | disposition home or self-care (01) | LOC: HO.LNP 08:30 | PROVIDERS: PCP Nurse Practitioner Family; Visit Provider Nurse Practitioner Family | DX: N30.90 Cystitis, unspecified without hematuria (principal); R33.9 Retention of urine, unspecified; N52.9 Male erectile dysfunction, unspecified | CPT/HCPCS: 51798; 81003; 87086; 87088; 87186; 99212 ==

== ENCOUNTER 2023-11-17 08:30 | Outpatient (AMB) | payer MEDICARE, MEDICAID, SELFPAY ==
--- NOTE | 2023-11-17 08:30 | MHC.OFFVIS ---
Intake Visit Reasons: 3m/PVR Intake Note: Patient presents today for follow up on: incomplete bladder emptying, uti, erectile dysfunction Urology Medications: Tadalafil, methenamine, vitamin c Antibiotic Allergies:None Blood Thinners: None PVR: 48ml's Field Sales Representative Required: No Allergies No Known Allergies Allergy (Verified 11/17/23 08:36) Medication List - Last Reconciled 11/17/23 by JAJA Reyes- allopurinol 300 mg PO DAILY ascorbic acid (vitamin C) 1 g PO DAILY 90 days blood pressure monitor daily use lisinopril 10 mg PO DAILY methenamine hippurate 1 g PO DAILY 90 days metoprolol succinate ER 50 mg PO DAILY 90 days probenecid 0 mg PO BEDTIME tadalafil (Cialis) 5 mg PO DAILY 90 days HPI Comments Details: Gigi is a pleasant 58-year-old male patient of Dr. English. He has a past medical history of nicotine dependence, hypertension, and gout. He presents to the office today for follow-up of his recurrent urinary tract infections, erectile dysfunction, in lower urinary tract symptoms with incomplete bladder emptying. In discussion with the patient today he reports noting over the last 1-2 weeks he has been having intermittent episodes of dysuria as well as foul-smelling urine. He reports having not called the office as he had his appointment today and feels symptoms are variable. In office urinalysis results reviewed with the patient today 1+ leukocytes positive nitrates. PVR 48 mL. Previous workup has included a retroperitoneal ultrasound 10/22 noting right kidney with benign-appearing renal cysts measuring up to 1.5 cm. No follow-up imaging is recommended per radiology report. There is no calculi or lesions noted. Left kidney with no calculi and or lesions noted. Trace left hydronephrosis. The bladder is well distended and normal. Debris within the bladder noted. Prostate volume is approximately 23 mL. He underwent an office cystoscopy with Dr. Cervantes 11/22 which noted tight prostate with mild trabeculation. When asked patient reports significant improvement in erectile dysfunction with 5 mg of Cialis. He otherwise denies urinary urgency, incontinence, nocturia, hematuria, flank pain, fever, and or chills. Discussed and stressed at length importance of limiting/quitting smoking, daily exercise/brisk walking, healthy eating habits, and adequate sleep for improvement in urinary symptoms, erectile dysfunction, as well as overall health and well-being. In review of patient's chart it appears PSA 07/22 0.6. Patient otherwise denies any other issues or concerns at this time. In review of patients charts urine cultures 07/23, 05/23, 03/25, 09/21, 07/22, 05/22, 12/20 all noted Klebsiella pneumoniae. Patient with previous microgen 11/22 that noted Klebsiella pneumoniae and Raoultella omithinolytica. [facility] Medical History Nicotine dependence, cigarettes, uncomplicated Tubular adenoma of colon HTN (hypertension) Gout Surgical History History of elbow surgery History of dental surgery History of tonsillectomy History of appendectomy History of colonoscopy Family History Mother HTN (hypertension) Maternal Uncle Cancer Family/Other Cancer Social History [facility]hold Members: [facility] Alcohol intake: current Alcohol intake frequency: a few times a month Patient Tobacco Use Status: Current everyday Tobacco user Cigarettes Per Day: 10 Years Smoked: (current smoker - onset 15yo, 1ppd x 42yrs, now 5-15cig/day - 40pyh) e-Cigarette/Vaping Use: Never Used Second Hand Smoke Exposure: Yes Substance Use Type: Marijuana service: No Current occupational status: disabled Current occupational exposures/hazards: No Cognitive needs: No Hearing needs: No Vision needs: No Review of Systems Const Reports as per HPI Eyes Reports no additional complaints ENT Reports no additional complaints Card Reports as per HPI Resp Reports no additional complaints GI Reports no additional complaints Reports as per HPI Musc Reports no additional complaints Neuro Reports no additional complaints Psych Reports no additional complaints Endo Reports no additional complaints Shar/Lymph Reports no additional complaints Aller/Immun Reports no additional complaints Physical Exam Const General: cooperative, healthy appearing, comfortable, no acute distress, well developed, alert and awake Orientation/consciousness: patient oriented x3 Limitations: no limitations HEENT Head: Yes normal to inspection, Yes normocephalic and Yes atraumatic Ears: hearing grossly normal bilaterally Eyes General: appearance normal, both eyes and all related structures Neck Neck: Yes normal visual inspection and Yes trachea midline Chest Chest palpation & inspection: normal inspection of the chest Resp Effort & Inspection: normal respiratory effort and able to speak in complete sentences Cardio Rate: regular rate GI Inspection: Yes normal to inspection Rectal Exam - Male: Yes other (enlarged prostate ) General: Yes no CVA tenderness Back/Spine/Pelvis Back: no CVA tenderness Skin General skin exam: no rashes or lesions noted Neuro General: patient oriented x3 Extrem General: Yes normal to inspection Psych Appearance: grossly normal and well kempt Mental Status: mental status grossly normal Speech and movement: Normal speech and movement present and Clear speech present Affect: normal affect Attitude: cooperative Thought process: Normal thought process present Thought content: Normal thought content present Insight: Fair insight present (Psych) Judgement: Fair judgement present (Psych) Office Procedures Post Void Residual Post Residual Void Post Void Residual (PVR): 48 12854-Seib Void Residual by ultrasound Results AMB Urinalysis, Automated UA Leukoctes 70 Jhonny/uL Last Edit by [employer] on 11/17/23 08:46 UA Nitrite Last Edit by [employer] on 11/17/23 08:46 UA Urobilinogen 0.2 mg/dL Last Edit by [employer] on 11/17/23 08:46 UA Protein 15 mg/dL Last Edit by [employer] on 11/17/23 08:46 UA pH 6.0 Last Edit by [employer] on 11/17/23 08:46 UA Blood 10 Frederick/uL Last Edit by [employer] on 11/17/23 08:46 UA Specific [place] 1.020 Last Edit by [employer] on 11/17/23 08:46 UA Ketone Last Edit by [employer] on 11/17/23 08:46 UA Bilirubin 0 mg/dL Last Edit by [employer] on 11/17/23 08:46 UA Glucose 0 mg/dL Last Edit by [employer] on 11/17/23 08:46 Results Reviewed Results Reviewed: Laboratory Last Values Urine pH (Auto) 6.0 11/17/23 08:45 Specific [place] (Auto) 1.020 11/17/23 08:45 Urine Protein (Auto) 15 mg/dL 11/17/23 08:45 Glucose (UA)(Auto) 0 mg/dL 11/17/23 08:45 Urine Blood (Auto) 10 Frederick/uL 11/17/23 08:45 Urine Bilirubin (Auto) 0 mg/dL 11/17/23 08:45 Urine Urobilinogen (Auto) 0.2 mg/dL 11/17/23 08:45 Leukocyte Esterase (Auto) 70 Jhonny/uL 11/17/23 08:45 Assessment & Plan Assessment & Plan (1) Complicated urinary tract infection: Code(s): N39.0 - Urinary tract infection, site not specified Category: Medical (2) Recurrent UTI: Code(s): N39.0 - Urinary tract infection, site not specified Category: Medical (3) Erectile dysfunction: Code(s): N52.9 - Male erectile dysfunction, unspecified Category: Medical (4) Incomplete bladder emptying: Code(s): R33.9 - Retention of urine, unspecified Category: Medical (5) Cystitis: Code(s): N30.90 - Cystitis, unspecified without hematuria Category: Medical Plan In office urinalysis results reviewed with the patient today; as noted above will send for urine culture. PVR 48 mL. Discussed at length potential causes of recurrent urinary tract infections. Start Bactrim as discussed and prescribed Discussed holding methenamine and vitamin-C while on treatment for urinary tract infection. Discussed worsening symptoms seeking medical treatment. Continue Cialis 5 mg daily with p.r.n. dosing prior to sexual activity; refill provided. Discussed at length lifestyle modifications to assist with erectile dysfunction as well as overall health and well-being. Discussed, educated, and stressed the importance of drinking plenty of water daily. Follow-up in 1-3 month with PVR; or sooner with any issues, concerns, and or questions. Orders: Orders AMB Post Void Residual by ultrasound Today N39.0 - Urinary tract infection, site not specified AMB Urinalysis Automated Today Z13.9 - Encounter for screening, unspecified Urine Culture Today N39.0 - Urinary tract infection, site not specified Medications: New sulfamethoxazole-trimethoprim 800-160 mg (Bactrim DS) 1 tab PO BID 28 tabs 0RF 14 days N39.0 - Urinary tract infection, site not specified Refilled tadalafil (Cialis) [facility] 33 [id number] 5 mg PO DAILY 90 tabs 0RF 90 days Patient Instructions: The patient had an opportunity to ask questions regarding the treatment plan. All questions were answered. Physical exam, labs, and imaging were discussed and reviewed in detail. As well as risks, benefits, and discussion of treatment choices. No major barriers to understanding were identified. The patient expressed understanding and agreement with the above treatment plan. The patient was made aware they should contact our office by phone for worsening of their current condition, the appearance of new symptoms, or with any questions or concerns. Compliance is encouraged with any medications and follow up testing that is ordered. It is a privilege to be allowed the opportunity to participate in? your urological care.? Again, if you have any questions or concerns If you have any questions or concerns please do not hesitate to contact me. The office is [phone]. This note is constructed using voice recognition software. While every effort has been made to ensure accuracy journeyman tool and die maker errors may have been included. Yours sincerely, KENNEDY Reyes Coding Level of Care Code Est Pt Level 4 (22217) Complex EM visit Add On G2211 Diagnoses Complicated urinary tract infection N39.0 Recurrent UTI N39.0 Erectile dysfunction N52.9 Incomplete bladder emptying R33.9 Cystitis N30.90 CPT Codes Post Residual Void - PVR CPT Code: 41878-Uwrh Void Residual by ultrasound ([id number])
== END 2023-11-17 09:01 | disposition home or self-care (01) ==
PROVIDERS: PCP Nurse Practitioner Family; Visit Provider Nurse Practitioner Family
DX: N39.0 Urinary tract infection, site not specified (principal); N52.9 Male erectile dysfunction, unspecified; R33.9 Retention of urine, unspecified; N30.90 Cystitis, unspecified without hematuria; Z13.9 Encounter for screening, unspecified
CPT/HCPCS: 99214; G2211

== ENCOUNTER 2023-11-19 13:09 | Outpatient (AMB) | payer MEDICARE, MEDICAID, SELFPAY ==
[2023-11-19 13:11] VITALS: BP 110/66; PULSE 96; BMI 26.4
--- NOTE | 2023-11-19 13:11 | A.OFFVIS_ITS ---
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/nicho Resident Care Assistant Required: No Accompanied by: Self / Same As Patient Allergies No Known Allergies Allergy (Verified 11/17/23 08:36) Medication List - Last Reconciled 11/19/23 by Parminder Rebolledo MD allopurinol 300 mg PO DAILY ascorbic acid (vitamin C) 1 g PO DAILY 90 days blood pressure monitor daily use lisinopril 10 mg PO DAILY methenamine hippurate 1 g PO DAILY 90 days metoprolol succinate ER 50 mg PO DAILY 90 days sulfamethoxazole-trimethoprim 800-160 mg (Bactrim DS) 1 tab PO BID 14 days tadalafil (Cialis) 5 mg PO DAILY 90 days HPI Comments Details: Gigi has been referred for evaluation of abnormal EKG. There was concern for right bundle-branch block and hence he is referred here. Patient himself does not have any known cardiac issues. Denies any history of coronary artery disease or myocardial infarction or cardiomyopathy or in fact any other cardiac issues. Within limits of her activity, no clear-cut complaints. Denies any exertional angina but he gets some atypical chest pains which are really random at different times. He has also chronic smoker. On medications for hypertension. [facility] Medical History Nicotine dependence, cigarettes, uncomplicated Tubular adenoma of colon HTN (hypertension) Gout Surgical History History of elbow surgery History of dental surgery History of tonsillectomy History of appendectomy History of colonoscopy Family History Mother HTN (hypertension) Maternal Uncle Cancer Family/Other Cancer Social History Household Members: [facility] Alcohol intake: current Alcohol intake frequency: a few times a month Patient Tobacco Use Status: Current everyday Tobacco user Cigarettes Per Day: 10 Years Smoked: (current smoker - onset 15yo, 1ppd x 42yrs, now 5-15cig/day - 40pyh) e-Cigarette/Vaping Use: Never Used Second Hand Smoke Exposure: Yes Substance Use Type: Marijuana service: No Current occupational status: disabled Current occupational exposures/hazards: No Cognitive needs: No Hearing needs: No Vision needs: No Review of Systems Const Denies chills, Denies daytime sleepiness, Denies fatigue, Denies fever(s), Denies poor appetite, Denies snoring, Denies stops breathing during sleep, Denies weakness, Denies weight gain and Denies weight loss Eyes Denies loss of vision ENT Denies dizziness and Denies hearing loss Card Denies chest pain, Denies irregular heart rhythm, Denies claudication, Denies leg edema, Denies lightheadedness, Denies palpitations, Denies dyspnea on exertion and Denies orthopnea Resp Denies cough, Denies excessive phlegm production, Denies dyspnea on exertion, Denies snoring and Denies wheezing GI Denies abdominal pain, Denies hematochezia, Denies change in bowel habits, Denies nausea and Denies vomiting Denies dysuria and Denies urinary frequency Musc Denies arthralgias, Denies muscle weakness, Denies numbness and Denies other Skin/Breast Denies nail changes and Denies rash Neuro Denies Abnormal speech present, Denies dizziness, Denies loss of vision, Denies memory loss, Denies numbness and Denies weakness Psych Denies depression and Denies memory loss Endo Denies fatigue and Denies palpitations Shar/Lymph Denies easy bruising Aller/Immun Denies wheezing Physical Exam Vital Signs: Last Vital Signs Pulse 96 11/19/23 13:11 BP 110/66 11/19/23 13:11 BMI result Body Mass Index 26.4 Const General: comfortable and no acute distress Orientation/consciousness: patient oriented x3 HEENT Other: Unremarkable Head: Yes normal to inspection Neck Neck: Yes normal visual inspection Chest Chest palpation & inspection: normal inspection of the chest Resp Auscultation: clear to auscultation bilaterally Cardio Palpation: normal PMI Heart sounds: S1 normal heart sound present, S2 normal heart sound present, no gallops, no murmurs and no rubs GI Palpation (GI): Soft to palpation Back/Spine/Pelvis Other: unremarkable Skin General skin exam: no rashes or lesions noted Neuro General: patient oriented x3 Speech: No Abnormal speech present Extrem General: Yes normal to inspection Psych Mental Status: mental status grossly normal Assessment & Plan Assessment & Plan (1) Precordial chest pain: Code(s): R07.2 - Precordial pain Category: Medical (2) Atherosclerotic cardiovascular disease: Code(s): I25.10 - Atherosclerotic heart disease of [place] coronary artery without angina pectoris Category: Medical (3) Right bundle branch block: Code(s): I45.10 - Unspecified right bundle-branch block Category: Medical Plan EKG with underlying sinus rhythm with an incomplete right bundle-branch block pattern. In the echocardiogram, LVEF was 53%. No obvious wall motion abnormalities. Right ventricular systolic function mildly decreased. In the chest CT scan, moderate to severe coronary artery calcification. Findings discussed with patient. Recommend exercise stress perfusion imaging study for further evaluation. Based on this, we can decide if he needs cardiac catheterization. Discussed about smoking cessation. He understands. Start statins. Follow-up after stress testing. Orders: Orders CA stress test Today R07.2 - Precordial pain NM cardiolite stress test Today R07.2 - Precordial pain Medications: New atorvastatin 20 mg PO QPM 90 tabs 3RF I25.10 - Atherosclerotic heart disease of [place] coronary artery without angina pectoris Coding Level of Care Code New Pt Level 4 (07193) Diagnoses Precordial chest pain R07.2 Atherosclerotic cardiovascular disease I25.10 Right bundle branch block I45.10
== END 2023-11-19 13:36 | disposition home or self-care (01) ==
PROVIDERS: PCP Nurse Practitioner Family; Visit Provider Internal Medicine
DX: I25.10 Atherosclerotic heart disease of native coronary artery without angina pectoris (principal); I45.10 Unspecified right bundle-branch block; R07.2 Precordial pain
CPT/HCPCS: 99214

== ENCOUNTER → 2023-11-19 13:09 | Outpatient (BNVA) | payer MEDICARE, MEDICAID, SELFPAY | PROVIDERS: PCP Nurse Practitioner Family; Visit Provider Internal Medicine | DX: R07.2 Precordial pain (principal); I25.10 Atherosclerotic heart disease of native coronary artery without angina pectoris; I10 Essential (primary) hypertension; I45.10 Unspecified right bundle-branch block; F17.210 Nicotine dependence, cigarettes, uncomplicated | CPT/HCPCS: 99212 ==

== ENCOUNTER 2024-01-26 14:13 | Outpatient (AMB) | payer MEDICARE, MEDICAID, SELFPAY ==
[2024-01-26 14:16] VITALS: BP 112/70; PULSE 63; O2SAT 98; BMI 27.8
--- NOTE | 2024-01-26 14:16 | A.OFFPC_ITS ---
Vital Signs 01/26/24 14:16 Height 6 ft 1 in Weight 210 lb 8 oz BMI 27.8 BP 112/70 Blood Pressure Location Rt brachial Position Sitting Pulse 63 Pulse Source Pulse Oximeter Pulse Oximetry (%) 98 Oxygen Delivery Method Room Air Intake Visit Reasons: 4 month fu Allergies No Known Allergies Allergy (Verified 01/26/24 16:39) Medication List - Last Reconciled 01/26/24 by Sai Wagner PHOTOLITH OPERATOR- allopurinol 300 mg PO DAILY ascorbic acid (vitamin C) 1 g PO DAILY 90 days atorvastatin 40 mg PO QPM blood pressure monitor daily use lisinopril 10 mg PO DAILY methenamine hippurate 1 g PO DAILY 90 days metoprolol succinate ER 50 mg PO DAILY 90 days tadalafil (Cialis) 5 mg PO DAILY 90 days Tobacco use date assessed: 05/14/23 Dental Screening Dental Screen Date: 01/26/24 Did you have a dental visit in the last 12 months?: Yes Did you have a dental problem in the last 6 months where you did not have access to dental care?: No Was dental information given to patient?: Patient has dentist HPI 4 month fu HPI Details History of Present Illness The patient is a 58-year-old male presenting with concerns regarding his blood pressure and cardiovascular health. The patient reports a history of essential hypertension with no recent episodes of chest pain or shortness of breath. He has been undergoing low-dose CT scans for lung screening annually. There is a significant history of atherosclerotic cardiovascular disease, with a recent visit to a collections specialist who suggested a potential arterial blockage. The patient was advised a stress test, scheduled for January. He has been on atorvastatin 20mg, will increase this. The patient has a history of smoking and reports a reduced intake to three cigarettes daily, with an intention to quit completely in the next few weeks. He denies experiencing chest pain but notes occasional numbness extending down his right arm (does report some neck pains). His blood pressure has been managed effectively with the current therapeutic regimen. Social History - History of smoking with reduction to t hree cigarettes daily, with plans to cease completely. 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 - Future employment considerations invol ve seeking less physically demanding roles, possibly through [employer] training. Review of Systems - Cardiovascular: Denies chest pain, price rtness of breath further denies LOPEZ, dizziness, blurred vision Physical Exam - Neck- Observed positive response with rotational movements, indicating possible discomfort. + spurlings - s1 s2 no murmurs lungs clear-dim bilat no edema - General Appearance- No acute distress; cooperative during examination. Results - Labs: Pending lipid panel to assess ch olesterol levels. - Tests and Diagnostics: Scheduled low-d ose CT scan for lung assessment was completed recently; a stress test is planned for March 01. Plan - Essential Hypertension: Monitor blood pressure levels; continue current medication regimen. - Atherosclerotic Cardiovascular Disease : Continue increased atorvastatin dose for lipid management; evaluate stress test results to determine further intervention. - Smoking Cessation: Continue efforts to reduce cigarette consumption with a goal of complete cessation. - - Vaccinations: Encourage scheduling for pneumonia, COVID-19, RSV, shingles, and influenza vaccinations as discussed. Patient was informed and verbally consented to the use of an ambient scribe for clinic note documentation during this visit. Discussion Notes I discussed with the patient the importance of continued management of his cardiovascular risk factors, particularly in terms of maintaining optimal cholesterol levels and managing hypertension. We reviewed the need to monitor potential symptoms of atherosclerosis progression and the potential for intervention, such as stenting, depending on stress test outcomes. The importance of smoking cessation was strongly emphasized to prevent further cardiovascular risks. The patient is aware of the necessity for pneumatic, COVID-19, and influenza vaccinations, and we discussed spacing them out to avoid overloading his immune system. We also discussed the patient's long-term plan for less physically demanding work, possibly through Social [employer] support for training. Patient Instructions - Continue prescribed blood pressure and cholesterol medications, noting any new symptoms. - Follow up with collections specialist for the sc heduled stress test on March 01. - Gradually reduce smoking to achieve co mplete cessation in upcoming weeks. - Obtain the recommended vaccinations on e at a time, spacing them appropriately. - Contact the office or seek medical car e if chest pain or breathing issues arise. - Schedule follow-up appointment to revi ew test results and ongoing management. [facility] Medical History Tracheal anomaly Atherosclerotic cardiovascular disease Nicotine dependence, cigarettes, uncomplicated Tubular adenoma of colon HTN (hypertension) Gout Surgical History History of elbow surgery History of dental surgery History of tonsillectomy History of appendectomy History of colonoscopy Family History Mother HTN (hypertension) Maternal Uncle Cancer Family/Other Cancer Social History Household Members: Family Housing: Condominium Alcohol intake: current Alcohol intake frequency: a few times a month Patient Tobacco Use Status: Current everyday Tobacco user Cigarettes Per Day: 3 Years Smoked: (current smoker - onset 15yo, 1ppd x 42yrs, now 5-15cig/day - 40pyh) e-Cigarette/Vaping Use: Never Used Second Hand Smoke Exposure: Yes Substance Use Type: Marijuana service: No Current occupational status: disabled Current occupational exposures/hazards: No Cognitive needs: No Hearing needs: No Vision needs: No Questionnaire PHQ-9 Over the last 2 weeks, how often have you been bothered by any of the following problems? 1. Little interest or pleasure in doing things: not at all 2. Feeling down, depressed, or hopeless: not at all 3. Trouble falling or staying asleep, or sleeping too much: not at all 4. Feeling tired or having little energy: not at all 5. Poor appetite or overeating: not at all 6. Feeling bad about yourself - or that you are a failure or have let yourself or your family down: not at all 7. Trouble concentrating on things, such as reading the newspaper or watching television: not at all 8. Moving or speaking so slowly that other people could have noticed. Or the opposite - being so fidgety or restless that you have been moving around a lot more than usual: not at all 9. Thoughts that you would be better off or of hurting yourself in some way: not at all Total score: 0 Depression Screening Interpretation: Negative Depression Screening Done: Yes 90717 - PHQ-9 Billing: Yes Source: Developed by Drs. Efe Dalton, Sofia Crook, Idris Garay and colleagues, with an educational kaci from [employer]. Thrive Questionnaire Date Thrive assessed: 01/26/24 I am a: Patient What is your living situation today?: I have a steady place to live Within the past 12 months, did the food you bought not last and you didn't have the money to get more?: Never true Within the past 12 months, did you worry whether your food would run out before you got money to buy more?: Never true Do you have trouble paying for medicines?: No Do you have trouble getting transportation to medical appointments?: No Do you have trouble paying your heating and electricity bill?: No Do you have trouble taking care of your child, family member or friend?: No Do you have trouble with day-to-day activities such as bathing, preparing meals, shopping, managing finances, etc.?: No Are you currently unemployed and looking for a job?: I choose not to answer this question Are you interested in more education?: Yes Please select the resources that you would like help with: None Currently or been in a relationship where the following occur: No concerns reported THRIVE Score: 0 AUDIT C Alcohol Use Questionnaire (AUDIT-C) 1. How often do you have a drink containing alcohol?: 2-3 times a week 2. How many drinks containing alcohol do you have on a typical day when you are drinking?: 3 or 4 3. How often do you have six or more drinks on one occasion?: Weekly Total Score: 7 ZARI-7 AMB Questionnaire ZARI-7 Date ZARI - 7 assessed: 05/14/23 Feeling nervous, anxious, or on edge: 0 = Not at all Not being able to stop or control worryin = Not at all Worrying too much about different things: 0 = Not at all Trouble relaxin = Not at all Being so restless that it is hard to sit still: 0 = Not at all Becoming easily annoyed or irritable: 0 = Not at all Feeling afraid as if something awful might happen: 0 = Not at all Total ZARI-7 score (0-4 normal; 5-9 mild; 10-14 moderate; 15-21 severe): 0 Source: Developed by Drs. Efe Dalton, Sofia Crook, Idris Garay and colleagues, with an educational kaci from [employer]. Physical exam (Primary Care) Vital Signs: Last Vital Signs Pulse 63 01/26/24 14:16 BP 112/70 01/26/24 14:16 Pulse Ox 98 01/26/24 14:16 Oxygen Delivery Method Room Air 01/26/24 14:16 BMI result Body Mass Index 27.8 Tobacco/Smoking Status: Tobacco use Status Tobacco use date assessed 05/14/23 01/26/24 14:17 Patient Tobacco Use Status Current everyday Tobacco 01/26/24 14:17 e-Cigarette/Vaping Use Never Used 01/26/24 14:17 PHQ-9: PHQ-9 Score PHQ-9: Total score 0 01/26/24 15:09 Depression Screening Interpretation: Negative Thrive Assessment: Date of Thrive Assessment Date Thrive assessed 01/26/24 01/26/24 14:40 Currently or been in a relationship where the following occur: No concerns reported Coding Level of Care Code Est Pt Level 3 (77890) Diagnoses HTN (hypertension) I10 Atherosclerotic cardiovascular disease I25.10 Additional Codes PHQ-9 - 01512 - PHQ-9 Billing: Yes ([id number]) Assessment & Plan Assessment & Plan (1) HTN (hypertension): Code(s): I10 - Essential (primary) hypertension Category: Medical (2) Atherosclerotic cardiovascular disease: Code(s): I25.10 - Atherosclerotic heart disease of [place] coronary artery without angina pectoris Category: Medical Plan . Orders: Orders Complete Blood Count Auto Diff Today I10 - Essential (primary) hypertension TSH reflex Free T4 Today I10 - Essential (primary) hypertension Comprehensive [place]. Panel Fast Today I10 - Essential (primary) hypertension UA CC w/rflx Micro + Cult Today I10 - Essential (primary) hypertension Lipid Panel Today I10 - Essential (primary) hypertension Medications: Changed From atorvastatin 20 mg PO QPM 90 tabs 3RF I25.10 - Atherosclerotic heart disease of [place] coronary artery without angina pectoris To atorvastatin 40 mg PO QPM 90 tabs 3RF I25.10 - Atherosclerotic heart disease of [place] coronary artery without angina pectoris
== END 2024-01-26 15:30 | disposition home or self-care (01) ==
PROVIDERS: PCP Nurse Practitioner Family; Visit Provider Nurse Practitioner Family
DX: I10 Essential (primary) hypertension (principal); I25.10 Atherosclerotic heart disease of native coronary artery without angina pectoris

== ENCOUNTER → 2024-01-26 14:13 | Outpatient (BNVA) | payer MEDICARE, MEDICAID, SELFPAY | PROVIDERS: PCP Nurse Practitioner Family; Visit Provider Nurse Practitioner Family | DX: I10 Essential (primary) hypertension (principal); I25.10 Atherosclerotic heart disease of native coronary artery without angina pectoris | CPT/HCPCS: 96127; 99212 ==

== ENCOUNTER 2024-02-17 10:30 | Outpatient (AMB) | payer MEDICARE, MEDICAID, SELFPAY ==
--- OUTSIDE RECORDS SUMMARY | 2024-02-17 10:35 | XMS_ITS | Data Portability ---
Author Organization [facility], [address] Address [address] [place] [address] Assessment No assessment recorded. Plan of Treatment Reminders Order Date Submit Date Provider Last Modified By Organization Details Last Modified Time Details Appointments None recorded. Lab urinalysis , dipstick 2022 023 [email or web address] [facility] [address] [facility], [place], [address], 16:35:39 culture, urine 2022 023 NORMAN [facility], [address] [place] [address], [address], 16:06:37 Referral None recorded. Procedures None recorded. Surgeries None recorded. Imaging None recorded. Medication Orders Bactrim DS 800 mg-160 mg tablet 2022 023 [id number], [id number] [facility] , [place], [address], 16:35:40 Patient TargetsNo targets recorded. Patient InstructionsNo instructions recorded. Reason for Referral None Reported. Results Created Date Observation Date Name Description Value Unit Range Abnormal Flag Note LastModifiedBy Organization Detail LastModifiedTime 05/01/1905/04/2022 URINE CULTU RECITLALY urine culture, routine FINAL REPORT abnormal Not Available [facility] ([facility]) [address] [facility], [place], [address], 05/04/2022 08:06:46 05/01/1905/04/2022 URINE CULTU RE, ROUTI NE result 1 KLEBSI BETO PNEUMO NIAE abnormal Cefaz david <=4 ug/mL Cefaz david with an JENNIFER <=16 predi cts susce ptibi lity to the oral agent s cefac lynne, cefdi vikram, cefpo doxim e, cefpr ozil, cefur oxime , cepha lexin , and lorac arbef when used for thera py of uncom plica tylor urina ry tract infec tions due to E. coli, Klebs iella pneum oniae , and Prote us mirab ilis. Great er than 100,0 00 colon y formi ng units per mL Not Available [facility] ([facility]) [address] [facility], [place], [address], 05/04/2022 08:06:46 05/01/1905/04/2022 URINE CULTU RE, ROUTI NE antimicrobia l susceptibili ty COMMEN T S = Susce ptibl e; I = Inter media te; R = Resis tant P = Posit david; N = Negat david MICS are expre ssed in micro grams per mL Antib iotic RSLT# 1 RSLT# 2 RSLT# 3 RSLT# 4 Amoxi cilli n/Cla vulan ic Acid S Ampic illin R Cefep ken S Ceftr iaxon e S Cefur oxime S Cipro floxa anselmo S Ertap enem S Genta micin S Imipe nem S Levof loxac in S Merop enem S Nitro furan toin S Piper acill in/Ta zobac fernandez S Tetra cycli ne S Tobra mycin S Trime thopr im/Villagomez lfa S Not Available [facility] ([facility]) [address] [facility], [place], [address], 05/04/2022 08:06:46 05/01/1904/30/2022 urina lysis , dipst ick Unknown Analyte Normal = light yellow Not Available [email or web address] [facility] [facility], [place], [address], 04/30/2022 15:16:56 05/01/19 23 04/30/2022 urina lysis , dipst ick Unknown Analyte Dark Yellow Not Available [facility], [place], [address], 04/30/2022 15:16:56 05/01/19 23 04/30/2022 urina lysis , dipst ick Unknown Analyte Normal = clear Not Available mariusz pham [address], [place], [address], 04/30/2022 15:16:56 05/01/19 23 04/30/2022 urina lysis , dipst ick Unknown Analyte Turbid Not Available abdiaziz [address], [place], [address], 04/30/2022 15:16:56 05/01/19 23 04/30/2022 urina lysis , dipst ick Unknown Analyte Normal = negati ve Not Available mariusz pham [address], [place], [address], 04/30/2022 15:16:56 05/01/1904/30/2022 urina lysis , dipst ick Unknown Analyte Negati ve Not Available mariusz pham [address], [place], [address], 04/30/2022 15:16:56 05/01/19 23 04/30/2022 urina lysis , dipst ick Unknown Analyte Normal = Negati ve Not Available mariusz pham [address], [place], [place], [address], 04/30/2022 15:16:56 05/01/19 23 04/30/2022 urina lysis , dipst ick Unknown Analyte Negati ve Not Available mariusz pham [address], [place], [place], [address], 04/30/2022 15:16:56 05/01/19 23 04/30/2022 urina lysis , dipst ick Unknown Analyte Normal = Negati ve Not Available [facility] [address], [place], [address], 04/30/2022 15:16:56 05/01/19 23 04/30/2022 urina lysis , dipst ick Unknown Analyte Trace Not Available [address] [place] [address], [place], [address], 04/30/2022 15:16:56 05/01/19 23 04/30/2022 urina lysis , dipst ick Unknown Analyte Normal = 1.010, 1.015, 1.020 Not Available [address] [place] [address], [place], [address], 04/30/2022 15:16:56 05/01/19 23 04/30/2022 urina lysis , dipst ick Unknown Analyte 1.015 Not Available [address] [place] [address], [place], [address], 04/30/2022 15:16:56 05/01/19 23 04/30/2022 urina lysis , dipst ick Unknown Analyte Normal = Negati ve Not Available [address], [place], [address], 04/30/2022 15:16:56 05/01/19 23 04/30/2022 urina lysis , dipst ick Unknown Analyte Trace- lysed Not Available [address] [place] [address], [place], [address], 04/30/2022 15:16:56 05/01/19 23 04/30/2022 urina lysis , dipst ick Unknown Analyte Normal = 6.5, 7.0, 7.5, 8.0 Not Available mariusz pham [address], [place], [address], 04/30/2022 15:16:56 05/01/19 23 04/30/2022 urina lysis , dipst ick Unknown Analyte 6.0 Not Available [facility] [address], [place], [address], 04/30/2022 15:16:56 05/01/19 23 04/30/2022 urina lysis , dipst ick Unknown Analyte Normal = Negati ve Not Available mariusz pham [address], [place], [address], 04/30/2022 15:16:56 05/01/19 23 04/30/2022 urina lysis , dipst ick Unknown Analyte Negati ve Not Available mariusz pham [address], [place], [address], 04/30/2022 15:16:56 05/01/19 23 04/30/2022 urina lysis , dipst ick Unknown Analyte Normal = 0.2, 1.0 Not Available mariusz pham [address], [place], [address], 04/30/2022 15:16:56 05/01/19 23 04/30/2022 urina lysis , dipst ick Unknown Analyte 0.2 E.U./d L Not Available [facility] [address], [place], [address], 04/30/2022 15:16:56 05/01/19 23 04/30/2022 urina lysis , dipst ick Unknown Analyte Normal = Negati ve Not Available [facility] [address], [place], [address], 04/30/2022 15:16:56 05/01/1904/30/2022 urina lysis , dipst ick Unknown Analyte Positi ve Not Available [address] [place], [address], 04/30/2022 15:16:56 05/01/19 23 04/30/2022 urina lysis , dipst ick Unknown Analyte Normal = Negati ve Not Available [address] pham [address] [place], [address], 04/30/2022 15:16:56 05/01/1904/30/2022 urina lysis , dipst ick Unknown Analyte Small Not Available [address], [address], 04/30/2022 15:16:56 Result Notes None recorded. Problems Name Problem SNOMED Code Status Onset Date Resolution Date Notes Provider Name and Address Organization Details Recorded Time Hypertensive disorder 53975707 Active 2022 QUAN MONTES DE OCA null, [place] - [facility] 15:14:28 Gout 68133603 Active 2022 QUAN MONTES DE OCA null, [place] - [facility] 15:14:41 Constipation 48595136 Active 2022 QUANCIERRA BLEDSOEEY null, [place] - [facility] 3 15:15:22 Problem Notes None recorded. Procedures Surgical History Date Name Laterality Status Provider Name and Address Organization Details Recorded Time Appendectomy completed QUAN MONTES DE OCA [place] - [facility] 04/30/2022 15:17:05 Imaging Results None recorded. Procedure Notes None recorded. Medical Equipment None Reported. Allergies No known drug allergies Medications Name Sig Start Date Stop Date Status Note LastModified by Organization Details LastModified Time Bactrim DS 800 mg-160 mg tablet Take 1 tablet every 12 hours by oral route for 7 days. 023 active Not Available Not Available Not Avai lable lisinopril active Not Available Not Av ailable Not Available allopurinol active Not Available Not A vailable Not Available probenecid active Not Available Not Av ailable Not Available metoprolol succinate active Not Available Not Available No t Available Vitals Date Recorded Body height Body mass index (BMI) Body weight Respiratory rate Oxygen saturation Oxygen saturation in Arterial blood by Pulse oximetry Heart rate Body temperature Systolic blood pressure Diastolic blood pressure Provider Name and Address Organization Details Last Updated DateTime 3 182.88 cm 27.8 kg/m2 24019.4 4 g 18 /min 98 % 98 % 86 /min 97.8 [degF] 128 mm[Hg] 86 mm[Hg] QUAN MAST [facility] 15:18:32 Social History Question Answer Notes LastModified by Organizat ion Details LastModified Time Tobacco Smoking Status Current Every Day Smoker QUAN aquino PA [facility] 04/30/2022 15:16:48 What Is Your Level Of Alcohol Consumption? Moderate Information not available 04/30/2022 How Many Times Per Week Do You Consume Alcohol? 3-4 Times Per Week [email or web address] Information not available 04/30/2022 Which Illicit Or Recreational Drugs Have You Used? Marijuana [email or web address] Information not available 04/30/2022 Do You Or Have You Ever Used E-cigarettes Or Vape? Current User Of Electronic Cigarettes Occasional Information not available 04/30/2022 How Much Tobacco Do You Smoke? 0.5 PPD [email or web address] Information not available 04/30/2022 Do You Use Any Illicit Or Recreational Drugs? Yes Information not available 04/30/2022 Have You Recently Traveled Abroad? No [email or web address] Information not available 04/30/2022 Do You Or Have You Ever Used Any Other Forms Of Tobacco Or Nicotine? Yes Information not available 04/30/2022 Sex: Unknown Functional Status None recorded. Mental Status None recorded. Family History Relationship Description Onset Age of this Age Resolved Age Notes LastModified by Organization Details LastModified Time Father No current problems or disability [email or web address] Not available 04/30 15:15:48 Mother No current problems or disability [email or web address] Not available 04/30 15:15:48 Medical History No medical history recorded. Past Encounters Encounter ID Performer Location Encounter Start Date Encounter Closed Date Diagnosis/Indication Diagnosis SNOMED-CT Code Diagnosis ICD10 Code [id number] [address] [place] [address] 10/27/2020 12:16:51 10/27/2020 14:42:21 [id number] SPENCER HAWTHORNE MD [address] [place] [address] 04/30/2022 12:24:54 04/30/2022 16:36:44 Abdominal pain 77207917 R10.9 Pyuria 4576548 R82.81 Health Concerns Section Related Observation LastModified by Organization Detai ls LastModified Time None Recorded Concern Status LastModified by Organization Details LastModified Time None Recorded Advance Directives Directive None Recorded Payers Encounter Date Sequence Insurance Name Policy Number Policy Guerra Covered Member ID Guerra Member ID Guarantor Name 10/27/2020 1 [facility] (MEDICARE REPLACEMENT/A DVANTAGE - PPO) [id number] Gigi Carranza [id number] Gigi Carranza 10/27/2020 2 MEDICARE [place]: [employer] Gigi Carranza [id number] Gigi Carranza 04/30/2022 1 [facility] (MEDICARE REPLACEMENT/A DVANTAGE - PPO) [id number] Gigi Carranza [id number] Gigi Carranza Notes Date Note Type Note Provider Name and Address Organization Details Recorded Time 04/30/2022 text/html Abdominal Pain UCReported bypatient.source of patient informationpatient Location:periumbilical; suprapubic Quality:bloating;aching Severity:moderate Duration:intermittent Onset/Timing:worse Modifying Factors:nothing gives relief; nothing makes it worse Associated Symptoms:no fever; no chills; no blood in the urine; no shortness of breath; no change in bowel/bladder habits Lower abdominal pain started 5 days ago. Took milk of magnesia for 2 days for possible constipation. Had some loose stools for the last 2 days. Now he has suprapubic and periumbilical pain with mild dysuria. Afebrile. No N/V. SPENCER HAWTHORNE MD [address] [place], [place] [address], [address], [place] - [facility] 04/30/2022 16:40:57
--- NOTE | 2024-02-17 10:39 | A.OFFVIS_ITS ---
Intake Visit Reasons: 3m/PVR Intake Note: Patient is present for 3m/PVR Urology Medication:TADALAFIL,VITMAIN C, METHENAMINE HIPPURATE, ALLOPURINOL Antibiotic Allergy:NONE Blood Thinner:NONE Last PVR:48ML'S Todays PVR:0ML'S Records Manager Required: No Allergies No Known Allergies Allergy (Verified 02/17/24 11:23) Medication List - Last Reconciled 02/17/24 by SENG Reyes allopurinol 300 mg PO DAILY ascorbic acid (vitamin C) 1 g PO DAILY 90 days atorvastatin 40 mg PO QPM blood pressure monitor daily use lisinopril 10 mg PO DAILY methenamine hippurate 1 g PO DAILY 90 days metoprolol succinate ER 50 mg PO DAILY 90 days tadalafil (Cialis) 5 mg PO DAILY 90 days HPI Comments Details: Gigi is a pleasant 58-year-old male patient of Dr. English. He has a past medical history of nicotine dependence, hypertension, and gout. He presents to the office today for follow-up of his recurrent urinary tract infections, erectile dysfunction, in lower urinary tract symptoms with incomplete bladder emptying. In discussion with the patient today he reports noting over the last 1-2 weeks he has been having intermittent episodes of dysuria as well as foul-smelling urine. He reports having not called the office as he had his appointment today and feels symptoms are variable. In office urinalysis results reviewed with the patient today 3+ leukocytes positive nitrates. PVR 0mL. Previous workup has included a retroperitoneal ultrasound 10/22 noting right kidney with benign-appearing renal cysts measuring up to 1.5 cm. No follow-up imaging is recommended per radiology report. There is no calculi or lesions noted. Left kidney with no calculi and or lesions noted. Trace left hydronephrosis. The bladder is well distended and normal. Debris within the bladder noted. Prostate volume is approximately 23 mL. He underwent an office cystoscopy with Dr. Cervantes 11/22 which noted tight prostate with mild trabeculation. When asked patient reports significant improvement in erectile dysfunction with 5 mg of Cialis. He otherwise denies urinary urgency, incontinence, nocturia, hematuria, flank pain, fever, and or chills. Discussed and stressed at length importance of limiting/quitting smoking, daily exercise/brisk walking, healthy eating habits, and adequate sleep for improvement in urinary symptoms, erectile dysfunction, as well as overall health and well-being.PSAs are as follows: 07/22 0.6, 09/22 0.9 Patient otherwise denies any other issues or concerns at this time. In review of patients charts urine cultures 07/23, 05/23, 03/25, 09/21, 07/22, 05/22, 12/20 all noted Klebsiella pneumoniae. Patient with previous microgen 11/22 that noted Klebsiella pneumoniae and Raoultella omithinolytica. He reports having ran out of refills on methenamine and vitamin-C and has not been taking medications as prescribed. We discussed importance in doing so. Discussed obtaining CirrusDx for further assessment and evaluation. [facility] Medical History Tracheal anomaly Atherosclerotic cardiovascular disease Nicotine dependence, cigarettes, uncomplicated Tubular adenoma of colon HTN (hypertension) Gout Surgical History History of elbow surgery History of dental surgery History of tonsillectomy History of appendectomy History of colonoscopy Family History Mother HTN (hypertension) Maternal Uncle Cancer Family/Other Cancer Social History Household Members: Family Housing: Condominium Alcohol intake: current Alcohol intake frequency: a few times a month Patient Tobacco Use Status: Current everyday Tobacco user Cigarettes Per Day: 3 Years Smoked: (current smoker - onset 15yo, 1ppd x 42yrs, now 5-15cig/day - 40pyh) e-Cigarette/Vaping Use: Never Used Second Hand Smoke Exposure: Yes Substance Use Type: Marijuana service: No Current occupational status: disabled Current occupational exposures/hazards: No Cognitive needs: No Hearing needs: No Vision needs: No Review of Systems Const Reports as per HPI Eyes Reports no additional complaints ENT Reports no additional complaints Card Reports as per HPI Resp Reports no additional complaints GI Reports no additional complaints Reports as per HPI Musc Reports no additional complaints Neuro Reports no additional complaints Psych Reports no additional complaints Endo Reports no additional complaints Shar/Lymph Reports no additional complaints Aller/Immun Reports no additional complaints Physical Exam Const General: cooperative, healthy appearing, comfortable, no acute distress, well developed, alert and awake Orientation/consciousness: patient oriented x3 Limitations: no limitations HEENT Head: Yes normal to inspection, Yes normocephalic and Yes atraumatic Ears: hearing grossly normal bilaterally Eyes General: appearance normal, both eyes and all related structures Neck Neck: Yes normal visual inspection and Yes trachea midline Chest Chest palpation & inspection: normal inspection of the chest Resp Effort & Inspection: normal respiratory effort and able to speak in complete sentences Cardio Rate: regular rate GI Inspection: Yes normal to inspection Rectal Exam - Male: Yes other (enlarged prostate ) General: Yes no CVA tenderness Back/Spine/Pelvis Back: no CVA tenderness Skin General skin exam: no rashes or lesions noted Neuro General: patient oriented x3 Extrem General: Yes normal to inspection Psych Appearance: grossly normal and well kempt Mental Status: mental status grossly normal Speech and movement: Normal speech and movement present and Clear speech present Affect: normal affect Attitude: cooperative Thought process: Normal thought process present Thought content: Normal thought content present Insight: Fair insight present (Psych) Judgement: Fair judgement present (Psych) Office Procedures Post Void Residual Post Residual Void Post Void Residual (PVR): 0 24885-Qxsl Void Residual by ultrasound Results AMB Urinalysis, Automated UA Leukoctes 500 Jhonny/uL Last Edit by TORI Fraser on 02/17/24 10:52 UA Nitrite Positive Last Edit by TORI Fraser on 02/17/24 10:52 UA Urobilinogen 0.2 mg/dL Last Edit by TORI Fraser on 02/17/24 10:5 2 UA Protein 0 mg/dL Last Edit by TORI Fraser on 02/17/24 10:52 UA pH 6.0 Last Edit by TORI Fraser on 02/17/24 10:52 UA Blood 0 Frederick/uL Last Edit by TORI Fraser on 02/17/24 10:52 UA Specific [place] 1.015 Last Edit by TORI Fraser on 02/17/24 10: 52 UA Ketone Negative Last Edit by TORI Fraser on 02/17/24 10:52 UA Bilirubin 0 mg/dL Last Edit by TORI Fraser on 02/17/24 10:52 UA Glucose 0 mg/dL Last Edit by TORI Fraser on 02/17/24 10:52 Results Reviewed Results Reviewed: Laboratory Last Values Urine pH (Auto) 6.0 02/17/24 10:51 Specific [place] (Auto) 1.015 02/17/24 10:51 Urine Protein (Auto) 0 mg/dL 02/17/24 10:51 Glucose (UA)(Auto) 0 mg/dL 02/17/24 10:51 Urine Ketones (Auto) Negative 02/17/24 10:51 Urine Blood (Auto) 0 Frederick/uL 02/17/24 10:51 Urine Nitrite (Auto) Positive 02/17/24 10:51 Urine Bilirubin (Auto) 0 mg/dL 02/17/24 10:51 Urine Urobilinogen (Auto) 0.2 mg/dL 02/17/24 10:51 Leukocyte Esterase (Auto) 500 Jhonny/uL 02/17/24 10:51 Assessment & Plan Assessment & Plan (1) Complicated urinary tract infection: Code(s): N39.0 - Urinary tract infection, site not specified Category: Medical (2) Recurrent UTI: Code(s): N39.0 - Urinary tract infection, site not specified Category: Medical (3) Erectile dysfunction: Code(s): N52.9 - Male erectile dysfunction, unspecified Category: Medical (4) Incomplete bladder emptying: Code(s): R33.9 - Retention of urine, unspecified Category: Medical (5) Cystitis: Code(s): N30.90 - Cystitis, unspecified without hematuria Category: Medical Plan In office urinalysis results reviewed with the patient today; as noted above will send for Cirris Dx testing; will await results for potential treatment PVR 0mL. Discussed at length potential causes of recurrent urinary tract infections. Discussed holding methenamine and vitamin-C while on treatment for urinary tract infection. Discussed importance of taking medications as prescribed in calling office when feeling UTI like symptoms and not awaiting worsening symptoms. Discussed worsening symptoms seeking medical treatment. Continue Cialis 5 mg daily with p.r.n. dosing prior to sexual activity; refill provided. Discussed at length lifestyle modifications to assist with erectile dysfunction as well as overall health and well-being. Discussed, educated, and stressed the importance of drinking plenty of water daily. Follow-up in 3 months with PVR; or sooner with any issues, concerns, and or questions. Orders: Orders AMB Urinalysis Automated Today Z13.9 - Encounter for screening, unspecified Medications: Refilled methenamine hippurate Start once completed antibiotic therapy for active urinary tract infection. Discussed importance of holding when on treatment for active UTI 1 g PO DAILY 90 tabs 2RF 90 days N39.0 - Urinary tract infection, site not specified ascorbic acid (vitamin C) 1 g PO DAILY 90 tabs 2RF 90 days N39.0 - Urinary tract infection, site not specified Patient Instructions: The patient had an opportunity to ask questions regarding the treatment plan. All questions were answered. Physical exam, labs, and imaging were discussed and reviewed in detail. As well as risks, benefits, and discussion of treatment choices. No major barriers to understanding were identified. The patient expressed understanding and agreement with the above treatment plan. The patient was made aware they should contact our office by phone for worsening of their current condition, the appearance of new symptoms, or with any questions or concerns. Compliance is encouraged with any medications and follow up testing that is ordered. It is a privilege to be allowed the opportunity to participate in? your urological care.? Again, if you have any questions or concerns If you have any questions or concerns please do not hesitate to contact me. The office is [phone]. This note is constructed using voice recognition software. While every effort has been made to ensure accuracy detective and intelligence analyst errors may have been included. Yours sincerely, KENNEDY Reyes Coding Level of Care Code Est Pt Level 4 (30768) Complex EM visit Add On G2211 Diagnoses Complicated urinary tract infection N39.0 Recurrent UTI N39.0 Erectile dysfunction N52.9 Incomplete bladder emptying R33.9 Cystitis N30.90 CPT Codes Post Residual Void - PVR CPT Code: 47232-Morb Void Residual by ultrasound ([id number])
== END 2024-02-17 11:03 | disposition home or self-care (01) ==
PROVIDERS: PCP Nurse Practitioner Family; Visit Provider Nurse Practitioner Family
DX: N39.0 Urinary tract infection, site not specified (principal); N52.9 Male erectile dysfunction, unspecified; R33.9 Retention of urine, unspecified; N30.90 Cystitis, unspecified without hematuria
CPT/HCPCS: 99214; G2211

== ENCOUNTER → 2024-02-17 10:30 | Outpatient (BNVA) | payer MEDICARE, MEDICAID, SELFPAY | PROVIDERS: PCP Nurse Practitioner Family; Visit Provider Nurse Practitioner Family | DX: N39.0 Urinary tract infection, site not specified (principal); N52.9 Male erectile dysfunction, unspecified; R33.9 Retention of urine, unspecified | CPT/HCPCS: 51798; 81003; 99212 ==

== ENCOUNTER → 2024-03-01 09:03 | Outpatient (REF) | payer MEDICARE, MEDICAID, SELFPAY ==
--- NOTE | ~2024-03-01 | NM_ITS ---
EXERCISE MYOCARDIAL PERFUSION STUDY INDICATION: Precordial chest pain TECHNIQUE: The patient was brought in for an exercise perfusion study on March 01, 2024. Patient performed exercise as per Ludin protocol and was injected 30 mCi of sestamibi once target heart rate was achieved. Images were obtained using the SPECT gamma camera interlaced with the gating device. Images were obtained in supine position. Resting perfusion study was performed on March 04, 2024. Patient was administered 30 mCi of sestamibi intravenously at rest. Images were then obtained in supine position. Images obtained without without CT attenuation. Total DLP 84 mGy-cm. Images were processed with the software and compared side to side in short axis, horizontal long axis and vertical long axis views. FINDINGS: Raw images were reviewed The stress perfusion study showed nonattenuated images show mildly reduced uptake in the basal and mid inferoseptal as well as basal and mid inferior wall of the LV myocardium. Remainder of the LV myocardium. Attenuated corrected images show normal uptake of radiotracer in all segments of the LV myocardium. There is suggestion of left ventricular hypertrophy.. The gated study shows normal LV systolic function with calculated LVEF of 70%. LV cavity is normal in size. The gated study shows normal systolic wall thickening and contraction of segments. Resting study shows no change in perfusion pattern compared to stress perfusion study. Gating at rest reveals normal systolic wall motion with ejection fraction at 65%. The findings are consistent with normal myocardial perfusion. NM/NM cardiolite stress test IMPRESSION: 1. Myocardial perfusion imaging study shows normal myocardial perfusion. 2. Gated LVEF is 70%. 3. Transient ischemic dilatation not present. EKG revealed no ischemia. Electronically signed by: Goran Dunaway MD 03/04/2024 04:05 PM [facility]
--- OUTSIDE RECORDS SUMMARY | 2024-03-01 09:05 | XMS_ITS | Data Portability ---
Author Organization KEZIA [facility]res [facility], [address] Address [address] [place] [address] Assessment No assessment recorded. Plan of Treatment Reminders Order Date Submit Date Provider Last Modified By Organization Details Last Modified Time Details Appointments None recorded. Lab urinalysis , dipstick 2022 023 [email or web address] [facility] [address] [facility], [place], [address], 16:35:39 culture, urine 2022 023 INGRAHAM [facility], [address] [place] [address], [address], 16:06:37 Referral None recorded. Procedures None recorded. Surgeries None recorded. Imaging None recorded. Medication Orders Bactrim DS 800 mg-160 mg tablet 2022 023 [facility] #[id number], [address] [facility] , [place], [address], 16:35:40 Patient TargetsNo targets recorded. Patient InstructionsNo instructions recorded. Reason for Referral None Reported. Results Created Date Observation Date Name Description Value Unit Range Abnormal Flag Note LastModifiedBy Organization Detail LastModifiedTime 05/01/1905/04/2022 URINE CULTU RECITLALY urine culture, routine FINAL REPORT abnormal Not Available [facility] ([facility]) [address] [facility], [place], [address], 05/04/2022 08:06:46 05/01/1905/04/2022 URINE CULTU RE, ROUTI [...] ng units per mL Not Available [facility] ([facility]) [address] [facility], [place], [address], 05/04/2022 08:06:46 05/01/1905/04/2022 URINE CULTU RE, ROUTI [...] thopr im/Villagomez lfa S Not Available [facility] ([facility]) [address] [facility], [place], [address], 05/04/2022 08:06:46 05/01/1904/30/2022 urina lysis , dipst ick Unknown Analyte Normal = light yellow Not Available [id number] [facility] [address] [facility], [place], [address], 04/30/2022 15:16:56 05/01/19 23 04/30/2022 urina lysis , dipst ick Unknown Analyte Dark Yellow Not Available mariusz pham [facility], [place], [address], 04/30/2022 15:16:56 05/01/19 23 04/30/2022 urina lysis , dipst ick Unknown Analyte Normal = clear Not Available mariusz pham em[address], [place], [address], 04/30/2022 15:16:56 05/01/19 23 04/30/2022 urina lysis , dipst ick Unknown Analyte Turbid Not Available abdiaziz paulette[address], [place], [address], 04/30/2022 15:16:56 05/01/19 23 04/30/2022 urina lysis , dipst ick Unknown Analyte Normal = negati ve Not Available mariusz pham em[address], [place], [address], 04/30/2022 15:16:56 05/01/1904/30/2022 urina lysis , dipst ick Unknown Analyte Negati ve Not Available mariusz pham [address], [place], [address], 04/30/2022 15:16:56 05/01/19 23 04/30/2022 urina lysis , dipst ick Unknown Analyte Normal = Negati ve Not Available mariusz pham em[address], [place], [place], [address], 04/30/2022 15:16:56 05/01/19 23 04/30/2022 urina lysis , dipst ick Unknown Analyte Negati ve Not Available mariusz pham em[address], [place], [place], [address], 04/30/2022 15:16:56 05/01/19 23 04/30/2022 urina lysis , dipst ick Unknown Analyte Normal = Negati ve Not Available [facility] [address], [place], [address], 04/30/2022 15:16:56 05/01/19 23 04/30/2022 urina lysis , dipst ick Unknown Analyte Trace Not Available [address] [place] [address], [place], [address], 04/30/2022 15:16:56 05/01/19 23 04/30/2022 urina lysis , dipst ick Unknown Analyte Normal = 1.010, 1.015, 1.020 Not Available [address] [place] [address], [place], [address], 04/30/2022 15:16:56 05/01/19 23 04/30/2022 urina lysis , dipst ick Unknown Analyte 1.015 Not Available [address] [place] [address], [place], [address], 04/30/2022 15:16:56 05/01/19 23 04/30/2022 urina lysis , dipst ick Unknown Analyte Normal = Negati ve Not Available [address], [place], [address], 04/30/2022 15:16:56 05/01/19 23 04/30/2022 urina lysis , dipst ick Unknown Analyte Trace- lysed Not Available [address] [place] [address], [place], [address], 04/30/2022 15:16:56 05/01/19 23 04/30/2022 urina lysis , dipst ick Unknown Analyte Normal = 6.5, 7.0, 7.5, 8.0 Not Available mariusz pham emem[address], [place], [address], 04/30/2022 15:16:56 05/01/19 23 04/30/2022 urina lysis , dipst ick Unknown Analyte 6.0 Not Available [facility] [address], [place], [address], 04/30/2022 15:16:56 05/01/19 23 04/30/2022 urina lysis , dipst ick Unknown Analyte Normal = Negati ve Not Available mariusz pham [address], [place], [address], 04/30/2022 15:16:56 05/01/19 23 04/30/2022 urina lysis , dipst ick Unknown Analyte Negati ve Not Available mariusz pham [address], [place], [address], 04/30/2022 15:16:56 05/01/19 23 04/30/2022 urina lysis , dipst ick Unknown Analyte Normal = 0.2, 1.0 Not Available mariusz pham [address], [place], [address], 04/30/2022 15:16:56 05/01/19 23 04/30/2022 urina lysis , dipst ick Unknown Analyte 0.2 E.U./d L Not Available [facility] [address], [place], [address], 04/30/2022 15:16:56 05/01/19 23 04/30/2022 urina lysis , dipst ick Unknown Analyte Normal = Negati ve Not Available [facility] [address], [place], [address], 04/30/2022 15:16:56 05/01/1904/30/2022 urina lysis , dipst ick Unknown Analyte Positi ve Not Available [address]99mariusz pham [address] [place], [address], 04/30/2022 15:16:56 05/01/19 23 04/30/2022 urina lysis , dipst ick Unknown Analyte Normal = Negati ve Not Available [address]99mariusz pham [address] [place], [address], 04/30/2022 15:16:56 05/01/1904/30/2022 urina lysis , dipst ick Unknown Analyte Small Not Available [address], [address], 04/30/2022 15:16:56 Result Notes None recorded. Problems Name Problem SNOMED Code Status Onset Date Resolution Date Notes Provider Name and Address Organization Details Recorded Time Hypertensive disorder 89888802 Active 2022 QUAN MONTES DE OCA null, [place] - [facility] 15:14:28 Gout 32182508 Active 2022 QUAN MONTES DE OCA null, [place] - [facility] 15:14:41 Constipation 45660430 Active 2022 QUANCIERRA BLEDSOEEY null, PA - [...] Updated DateTime 3 182.88 cm 27.8 kg/m2 79006.4 4 g 18 /min 98 % 98 % 86 /min 97.8 [degF] 128 mm[Hg] 86 mm[Hg] QUAN MAST [facility] 15:18:32 Social History Question Answer Notes LastModified by Organizat ion Details LastModified Time Tobacco Smoking Status Current Every Day Smoker QUAN aquino PA [facility] 04/30/2022 15:16:48 What Is Your Level Of Alcohol Consumption? Moderate [email or web address] Information not available 04/30/2022 How Many Times Per Week Do You Consume Alcohol? 3-4 Times Per Week [email or web address] Information not available 04/30/2022 Which Illicit Or Recreational Drugs Have You Used? Marijuana [email or web address] Information not available 04/30/2022 Do You Or Have You Ever Used E-cigarettes Or Vape? Current User Of Electronic Cigarettes Occasional [email or web address] Information not available 04/30/2022 How Much Tobacco Do You Smoke? 0.5 PPD Information not available 04/30/2022 Do You Use Any Illicit Or Recreational Drugs? Yes [email or web address] Information not available 04/30/2022 Have You Recently Traveled Abroad? No [email or web address] Information not available 04/30/2022 Do You Or Have You Ever Used Any Other Forms Of Tobacco Or Nicotine? Yes [email or web address] Information not available 04/30/2022 Sex: Unknown Functional Status None recorded. Mental Status None recorded. Family History Relationship Description Onset Age of this Age Resolved Age Notes LastModified by Organization Details LastModified Time Father No current problems or disability [email or web address] Not available 04/30 15:15:48 Mother No current problems or disability [email or web address] Not available 04/30 15:15:48 Medical History No medical history recorded. Past Encounters Encounter ID Performer Location Encounter Start Date Encounter Closed Date Diagnosis/Indication Diagnosis SNOMED-CT Code Diagnosis ICD10 Code [id number] [address] [place] [address] 10/27/2020 12:16:51 10/27/2020 14:42:21 [id number] SPENCER HAWTHORNE MD [address] [place] [address] 04/30/2022 12:24:54 04/30/2022 16:36:44 Abdominal pain 61900555 R10.9 Pyuria 1086546 R82.81 Health Concerns Section Related Observation LastModified by Organization Detai ls LastModified Time None Recorded Concern Status LastModified by Organization Details LastModified Time None Recorded Advance Directives Directive None Recorded Payers Encounter Date Sequence Insurance Name Policy Number Policy Guerra Covered Member ID Guerra Member ID Guarantor Name 10/27/2020 1 [facility] (MEDICARE REPLACEMENT/A DVANTAGE - PPO) [id number] Gigi Carranza [id number] Gigi Carranza 10/27/2020 2 [place] [employer] Gigi Carranza [id number] Gigi Carranza 04/30/2022 1 [facility] (MEDICARE REPLACEMENT/A DVANTAGE - PPO) [id number] Gigi Carranza [id number] Gigi Carranza Notes Date Note Type Note [...] dysuria. Afebrile. No N/V. SPENCER HAWTHORNE MD [address] [place], [place] [address], [address], [place] - [facility] 04/30/2022 16:40:57
--- NOTE | 2024-03-01 09:06 | CA_ITS ---
Acquisition Time: 2024-03-01 09:20:16 Total Exercise Time: 00:06:30 Test Indications: CP Medications: SEE H Protocol: ANDREW Max HR: 136 BPM 83% of Pred: 163 BPM Max BP: 162/088 mmHG Max Work Load: 7.0 METS Exercise Stress test with exercise 6 mins 30 secs of Andrew Protocol held at Stage 2 due to SOB, achieving 83% MPHR, reports mild lightheadedness and severe SOB, no chest discomfort, without any arrythmias, with normotensive response to exercise. Without EKG changes meeting criteris for ischemia. In recovery, breathing returned to baseline and lightheadedness resolved. Nuclear images pending. Test reviewed with Dr. Dunaway. Referred By: Parminder Rebolledo Overread By: Fab Vásquez
== END ==
LOC: HO.CARD 09:03
PROVIDERS: PCP Nurse Practitioner Family; Visit Provider Internal Medicine
DX: R07.2 Precordial pain (principal)
CPT/HCPCS: 78452; 93017; A9500

== ENCOUNTER → 2024-03-01 09:06 | Outpatient (BNV) | payer MEDICARE, MEDICAID, SELFPAY | PROVIDERS: PCP Nurse Practitioner Family | DX: R07.2 Precordial pain (principal) | CPT/HCPCS: 93016; 93018 ==

== ENCOUNTER 2024-04-05 14:41 | Outpatient (AMB) | payer MEDICARE, MEDICAID, SELFPAY ==
--- OUTSIDE RECORDS SUMMARY | 2024-04-05 14:43 | XMS_ITS | Data Portability ---
Author Organization KEZIA Hernandez s, [address] Address [address] [place] [address] Assessment No assessment recorded. Plan of Treatment Reminders Order Date Submit Date Provider Last Modified By Organization Details Last Modified Time Details Appointments None recorded. Lab urinalysis , dipstick 2022 023 [email or web address] [facility] [address] [facility], [place], [address], 16:35:39 culture, urine 2022 023 [place] [facility], [address] [place] [address], [address], 16:06:37 Referral None recorded. Procedures None recorded. Surgeries None recorded. Imaging None recorded. Medication Orders Bactrim DS 800 mg-160 mg tablet 2022 023 [facility]/Pharmacy #[id number], [address] [facility] , [place], [address], 16:35:40 Patient TargetsNo targets recorded. Patient InstructionsNo instructions recorded. Reason for Referral None Reported. Results Created Date Observation Date Name Description Value Unit Range Abnormal Flag Note LastModifiedBy Organization Detail LastModifiedTime 05/01/1905/04/2022 URINE CULTU RECITLALY urine culture, routine FINAL REPORT abnormal Not Available [facility] ([facility]) [address] [facility], [place], [address], 05/04/2022 08:06:46 05/01/1905/04/2022 URINE CULTU RE, ROUTI [...] ng units per mL Not Available [facility] ([facility]) [address] [facility], [place], [address], 05/04/2022 08:06:46 05/01/1905/04/2022 URINE CULTU RE, ROUTI [...] thopr im/Villagomez lfa S Not Available [facility] ([facility]) [address] [facility], [place], [address], 05/04/2022 08:06:46 05/01/1904/30/2022 urina lysis , dipst ick Unknown Analyte Normal = light yellow Not Available [id number] [facility] [address] [facility], [place], [address], 04/30/2022 15:16:56 05/01/19 23 04/30/2022 urina lysis , dipst ick Unknown Analyte Dark Yellow Not Available [facility] pham [facility], [place], [address], 04/30/2022 15:16:56 05/01/19 23 04/30/2022 urina lysis , dipst ick Unknown Analyte Normal = clear Not Available mariusz pham em[address], [place], [address], 04/30/2022 15:16:56 05/01/19 23 04/30/2022 urina lysis , dipst ick Unknown Analyte Turbid Not Available abdiaziz paulette[address], [place], [address], 04/30/2022 15:16:56 05/01/19 23 04/30/2022 urina lysis , dipst ick Unknown Analyte Normal = negati ve Not Available mariusz pham em[address], [place], [address], 04/30/2022 15:16:56 05/01/1904/30/2022 urina lysis , dipst ick Unknown Analyte Negati ve Not Available mariusz pham [address], [place], [address], 04/30/2022 15:16:56 05/01/19 23 04/30/2022 urina lysis , dipst ick Unknown Analyte Normal = Negati ve Not Available mariusz pham em[address], [place], [place], [address], 04/30/2022 15:16:56 05/01/19 23 04/30/2022 urina lysis , dipst ick Unknown Analyte Negati ve Not Available mariusz pham em[address], [place], [place], [address], 04/30/2022 15:16:56 05/01/19 23 04/30/2022 urina lysis , dipst ick Unknown Analyte Normal = Negati ve Not Available [facility] [address], [place], [address], 04/30/2022 15:16:56 05/01/19 23 04/30/2022 urina lysis , dipst ick Unknown Analyte Trace Not Available [address] [place] [address], [place], [address], 04/30/2022 15:16:56 05/01/19 23 04/30/2022 urina lysis , dipst ick Unknown Analyte Normal = 1.010, 1.015, 1.020 Not Available [address] [place] [address], [place], [address], 04/30/2022 15:16:56 05/01/19 23 04/30/2022 urina lysis , dipst ick Unknown Analyte 1.015 Not Available [address] [place] [address], [place], [address], 04/30/2022 15:16:56 05/01/19 23 04/30/2022 urina lysis , dipst ick Unknown Analyte Normal = Negati ve Not Available [address], [place], [address], 04/30/2022 15:16:56 05/01/19 23 04/30/2022 urina lysis , dipst ick Unknown Analyte Trace- lysed Not Available [address] [place] [address], [place], [address], 04/30/2022 15:16:56 05/01/19 23 04/30/2022 urina lysis , dipst ick Unknown Analyte Normal = 6.5, 7.0, 7.5, 8.0 Not Available mariusz pham [address], [place], [address], 04/30/2022 15:16:56 05/01/19 23 04/30/2022 urina lysis , dipst ick Unknown Analyte 6.0 Not Available [facility] [address], [place], [address], 04/30/2022 15:16:56 05/01/19 23 04/30/2022 urina lysis , dipst ick Unknown Analyte Normal = Negati ve Not Available mariusz pham [address], [place], [address], 04/30/2022 15:16:56 05/01/19 23 04/30/2022 urina lysis , dipst ick Unknown Analyte Negati ve Not Available mariusz pham [address], [place], [address], 04/30/2022 15:16:56 05/01/19 23 04/30/2022 urina lysis , dipst ick Unknown Analyte Normal = 0.2, 1.0 Not Available mariusz pham [address], [place], [address], 04/30/2022 15:16:56 05/01/19 23 04/30/2022 urina lysis , dipst ick Unknown Analyte 0.2 E.U./d L Not Available [facility] [address], [place], [address], 04/30/2022 15:16:56 05/01/19 23 04/30/2022 urina lysis , dipst ick Unknown Analyte Normal = Negati ve Not Available [facility] [address], [place], [address], 04/30/2022 15:16:56 05/01/1904/30/2022 urina lysis , dipst ick Unknown Analyte Positi ve Not Available [address]marius[address] pham [address] [place], [address], 04/30/2022 15:16:56 05/01/19 23 04/30/2022 urina lysis , dipst ick Unknown Analyte Normal = Negati ve Not Available [address]99mariusz pham [address] [place], [address], 04/30/2022 15:16:56 05/01/1904/30/2022 urina lysis , dipst ick Unknown Analyte Small Not Available [address], [address], 04/30/2022 15:16:56 Result Notes None recorded. Problems Name Problem SNOMED Code Status Onset Date Resolution Date Notes Provider Name and Address Organization Details Recorded Time Hypertensive disorder 62754802 Active 2022 QUAN MONTES DE OCA null, [place] - [facility] 15:14:28 Gout 06125950 Active 2022 QUAN MONTES DE OCA null, [place] - [facility] 15:14:41 Constipation 01967597 Active 2022 QUANCIERRA BLEDSOEEY null, PA - [facility] 3 15:15:22 Problem Notes None recorded. Procedures Surgical History Date Name Laterality Status Provider Name and Address Organization Details Recorded Time Appendectomy completed QUAN MONETS DE OCA [place] - [facility] 04/30/2022 [...] height Body mass index (BMI) Body weight Pain severity - 0-10 verbal numeric rating [Score] - Reported Respiratory rate Oxygen saturation Oxygen saturation in Arterial blood by Pulse oximetry Heart rate Body temperature Systolic blood pressure Diastolic blood pressure Provider Name and Address Organization Details Last Updated DateTime 3 182.88 cm 27.8 kg/m2 59130.4 4 g 7 18 /min 98 % 98 % 86 /min 97.8 [degF] 128 mm[Hg] 86 mm[Hg] QUAN MONTES DE OCA [employer] [facility] 15:18:32 Social History Question Answer Notes LastModified by Organizat ion Details LastModified Time Tobacco Smoking Status Current Every Day Smoker QUAN aquino PA [facility] 04/30/2022 15:16:48 What Is Your Level Of Alcohol Consumption? Moderate [email or web address] Information not available 04/30/2022 How Many Times Per Week Do You Consume Alcohol? 3-4 Times Per Week [email or web address] Information not available 04/30/2022 Which Illicit Or Recreational Drugs Have You Used? Marijuana [email or web address] Information not available 04/30/2022 Do You Or Have You Ever Used E-cigarettes Or Vape? Current User Of Electronic Cigarettes Occasional Information not available 04/30/2022 How Much Tobacco Do You Smoke? 0.5 PPD [email or web address] Information not available 04/30/2022 Do You Use Any Illicit Or Recreational Drugs? Yes [email or web address] Information not available 04/30/2022 Have You Recently Traveled Abroad? No Information not available 04/30/2022 Do You Or Have You Ever Used Any Other Forms Of Tobacco Or Nicotine? Yes [email or web address] Information not available 04/30/2022 Sex: Unknown Functional Status None recorded. Mental Status None recorded. Family History Relationship Description Onset Age of this Age Resolved Age Notes LastModified by Organization Details LastModified Time Father No current problems or disability [email or web address] Not available 04/30 15:15:48 Mother No current problems or disability [email or web address] Not available 04/30 15:15:48 Medical History No medical history recorded. Past Encounters Encounter ID Performer Location Encounter Start Date Encounter Closed Date Diagnosis/Indication Diagnosis SNOMED-CT Code Diagnosis ICD10 Code Diagnosis Note [id number] [address] [place] [address] 10/27/2020 12:16:51 10/27/2020 14:42:21 [id number] SPENCER HAWTHORNE MD [address] [place] [address] 04/30/2022 12:24:54 04/30/2022 16:36:44 Abdominal pain 11006704 R10.9 Pyuria 3802256 R82.81 Health Concerns Section Related Observation LastModified by Organization Detai ls LastModified Time None Recorded Concern Status LastModified by Organization Details LastModified Time None Recorded Advance Directives Directive None Recorded Payers Encounter Date Sequence Insurance Name Policy Number Policy Guerra Covered Member ID Guerra Member ID Guarantor Name 10/27/2020 1 [facility] (MEDICARE REPLACEMENT/A DVANTAGE - PPO) [id number] Gigi Carranza [id number] Gigi Carranza 10/27/2020 2 [place] B-[place]: [employer] Gigi Carranza [id number] Gigi Carranza 04/30/2022 1 [facility] (MEDICARE REPLACEMENT/A DVANTAGE - PPO) [id number] Gigi Carranza [id number] Gigi Carranza Notes Date Note Type Note [...] dysuria. Afebrile. No N/V. SPENCER HAWTHORNE MD [address] [place], [place] [address], [address], [place] - [facility] 04/30/2022 16:40:57
--- OUTSIDE RECORDS SUMMARY | 2024-04-05 14:43 | XMS_ITS | Clinical Summary ---
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 Name Role Phone Unavailable Primary Care Provider Unavailabl e Social History Tobacco Use Types Packs/Day Years Used Date Smoking Tobacco: Never Assessed Sex and Gender Information Value Date Recorded Sex Assigned at Male 12/30/2021 10:23 AM EDT Legal Sex Male 10:23 AM EDT Gender Identity Male 12/30/2021 10:23 AM EDT Sexual Orientation Straight 12/30/2021 10 :23 AM EDT Last Filed Vital Signs Vital Sign Reading Time Taken Comments Blood Pressure 138/82 11/09/2020 12:09 AM EDT Pulse - - Temperature - - Respiratory Rate - - Oxygen Saturation - - Inhaled Oxygen Concentration - - Weight - - Height - - Body Mass Index - - Plan of Treatment Health Maintenance Due Date Last Done Comments CT Colonography 1966 Colonoscopy 1966 Colorectal Cancer Screening 1966 Dental Prophylaxis 1966 Dental X-Ray: Bitewings 1966 Depression Screening 1966 FIT DNA/Cologuard 1966 FIT 1966 FOBT 1966 HIV Screening 1966 Lipid Panel 1966 SDOH Screening 1966 Sigmoidoscopy 1966 Alcohol/Substance Use Screening 1978 Tobacco Screening 1978 Hepatitis C Screening 1984 Hepatitis B Vaccines (1 of 3 - 19+ 3-dose series) 1985 DTaP/Tdap/Td Vaccines (1 - Tdap) 07/14/2007 07/13/2007 Zoster Vaccines (1 of 2) 2016 Dental Oral Exam 05/10/2021 11/09/2020 COVID-19 Vaccine ( season) 2023 12/05/2022, 03/24/2021, 07/17/2020, Additional history exists Influenza Vaccine (#1) 2023 12/05/2022 Dental X-Ray: Full Mouth 11/11/2023 11/09/2020 RSV Patients and Patients Aged 60 years or older (1 - 1-dose 75+ series) 2041 Pneumococcal Vaccine: 50+ Years Completed 07/07/2022 Pneumococcal Vaccine: Pediatrics (0 to 5 Years) and At-Risk Patients (6 to 49) Years) Aged Out 07/07/2022 No longer eligible based on patient's age to complete this topic HIB Vaccines Aged Out No longer eligi ble based on patient's age to complete this topic HPV Vaccines Aged Out No longer eligi ble based on patient's age to complete this topic Hepatitis A Vaccines Aged Out No long er eligible based on patient's age to complete this topic IPV Vaccines Aged Out No longer eligi ble based on patient's age to complete this topic Meningococcal Vaccine Aged Out No jennifer jann eligible based on patient's age to complete this topic RSV under 20 months Aged Out No longe r eligible based on patient's age to complete this topic Rotavirus Vaccines Aged Out No longer eligible based on patient's age to complete this topic Procedures Procedure Name Priority Date/Time Associated Diagnosis Comments PANORAMIC RADIOGRAPHIC IMAGE Routine 11/09/2020 12:00 AM EDT COMPREHENSIVE ORAL EVALUATION - NEW OR ESTABLISHED PATIENT Routine 11/09/2020 12:00 AM EDT from Last 3 Months or Most Recently Relevant to Health Maintenance Insurance DENTAL - HSN FULL (MEDICAID)
--- OUTSIDE RECORDS SUMMARY | 2024-04-05 14:43 | XMS_ITS | Clinical Summary ---
Author Organization [facility] Address [address] [facility] [address] [place] [address] Phone Care Team Providers Care Vice President Digital Strategist Name Role Phone Sai Wagner NP Primary Care Provider [phone] Allergies No known active allergies Medications allopurinol (ZYLOPRIM) 300 MG tablet Take 1 tablet by mouth 1 (one) time each day Active probenecid (BENEMID) 500 MG tablet Take 1 tablet by mouth 1 (one) time each day Active lisinopril 10 MG tablet TAKE 1 TABLET BY MOUTH EVERY DAY 90 tablet 5 07/16/2022 Active metoprolol succinate XL (TOPROL XL) 25 MG 24 hr tablet TAKE 1 TABLET BY MOUTH EVERYDAY AT BEDTIME 90 tablet 4 01/15/2023 Active polycarbophil (FIBERCON) 625 MG tablet Take 2 tablets by mouth 1 (one) time each day Active Active Problems Problem Noted Date Diagnosed Date Erectile dysfunction 07/04/2021 Cigarette smoker 07/04/2021 Obesity 07/04/2021 Osteoarthritis 07/04/2021 Tachycardia 07/12/2020 Orthostatic hypotension 07/12/2020 Alcohol intake above recommended sensible limits 07/12/2020 Macrocytosis 07/12/2020 Edema 07/11/2020 Hypertension 07/11/2020 Gouty arthropathy 07/11/2020 Resolved Problems Problem Noted Date Diagnosed Date Resolved Date Gout, not otherwise specified 07/12/2020 01/04/2022 Immunizations Name Administration Dates Next Due Td, Unspecified 07/13/2007 Family History Medical History Relation Comments Gout Mother GF Hypertension Mother Relation Status Comments Father Unknown Mother Alive Social History Tobacco Use Types Packs/Day Years Used Date Smoking Tobacco: Every Day Cigarettes Smokeless Tobacco: Never Alcohol Use Standard Drinks/Week Comments Yes 0 (1 standard drink = 0.6 oz pure alcohol) Alcoholic Drinks/day: Occasional social drink Sex and Gender Information Value Date Recorded Sex Assigned at Not on file Legal Sex Male 4:46 PM EST Gender Identity Not on file Sexual Orientation Not on file Last Filed Vital Signs Vital Sign Reading Time Taken Comments Blood Pressure 122/90 03/09/2023 8:07 AM EST Pulse 86 03/09/2023 8:07 AM EST Temperature - - Respiratory Rate - - Oxygen Saturation 95% 03/09/2023 8:07 AM EST Inhaled Oxygen Concentration - - Weight 89.1 kg (196 lb 6.4 oz) 03/09/2023 8:07 A M EST Height 182.9 cm (6') 03/09/2023 8:07 AM EST Body Mass Index 26.64 03/09/2023 8:07 AM EST Plan of Treatment Health Maintenance Due Date Last Done Comments Pneumococcal Vaccine: Pediat rics (0 to 5 Years) and At-Risk Patients (6 to 64 Years) (1 of 2 - PCV) 1972 Hepatitis B Vaccine (1 of 3 - 19+ 3-dose series) 04/11 Colorectal Cancer Screening: Annual FOBT 2015 Colorectal Cancer Screening: Colonoscopy 2015 Colorectal Cancer Screening: Sigmoidoscopy 2015 Influenza Vaccine (#1) 2023 Insurance [facility] MEDICARE [facility] MEDICARE Care Teams Vice President Digital Strategist Relationship Specialty Start Date End Date Sai Wagner NP [address] [place] [address] PCP - General 03/12/20
[2024-04-05 14:45] VITALS: BP 128/80; PULSE 93; BMI 26.8
--- NOTE | 2024-04-05 14:45 | A.OFFVIS_ITS ---
Vital Signs 04/05/24 14:45 Height 6 ft 1 in Weight 202 lb 13.204 oz BMI 26.8 BP 128/80 Blood Pressure Location Lt brachial Position Sitting Pulse 93 Pulse Source Monitor Intake Visit Reasons: follow up after testings Allergies No Known Allergies Allergy (Verified 02/17/24 11:23) Medication List - Last Reconciled 04/05/24 by Parminder Rebolledo MD allopurinol 300 mg PO DAILY ascorbic acid (vitamin C) 1 g PO DAILY 90 days atorvastatin 40 mg PO QPM blood pressure monitor daily use lisinopril 10 mg PO DAILY metoprolol succinate ER 50 mg PO DAILY 90 days tadalafil (Cialis) 5 mg PO DAILY 90 days HPI Comments Details: Gigi returns for follow-up. Recently seen in consultation regarding an abnormal EKG. There was concern for right bundle-branch block. Patient himself does not have any known cardiac issues. No clear-cut exertional anginal-type complaints. Chronic smoker. On meds for hypertension. He has completed an echocardiogram and stress test. Overall feels fine. [facility]LY [facility], [facility] Medical History Tracheal anomaly Atherosclerotic cardiovascular disease Nicotine dependence, cigarettes, uncomplicated Tubular adenoma of colon HTN (hypertension) Gout Surgical History History of elbow surgery History of dental surgery History of tonsillectomy History of appendectomy History of colonoscopy Family History Mother HTN (hypertension) Maternal Uncle Cancer Family/Other Cancer Social History Household Members: Family [facility]: [facility] Alcohol intake: current Alcohol intake frequency: a few times a month Patient Tobacco Use Status: Current everyday Tobacco user Cigarettes Per Day: 3 Years Smoked: (current smoker - onset 15yo, 1ppd x 42yrs, now 5-15cig/day - 40pyh) e-Cigarette/Vaping Use: Never Used Second Hand Smoke Exposure: Yes Substance Use Type: Marijuana service: No Current occupational status: disabled Current occupational exposures/hazards: No Cognitive needs: No Hearing needs: No Vision needs: No Review of Systems Const Denies weakness ENT Denies dizziness Card Denies chest pain, Denies chest pain with activity, Denies syncope, Denies rapid heart rate, Denies pedal edema, Denies edema, Denies leg edema, Denies lightheadedness, Denies palpitations, Denies dyspnea, Denies dyspnea on exertion and Denies orthopnea Resp Denies cough, Denies dyspnea and Denies dyspnea on exertion GI Denies hematochezia and Denies change in stool character Musc Denies abnormal gait, Denies muscle cramps, Denies muscle weakness, Denies numbness, Denies radiating pain into limb and Denies tingling Neuro Denies abnormal gait, Denies dizziness, Denies syncope, Denies numbness, Denies tingling and Denies weakness Endo Denies palpitations Physical Exam Vital Signs: Last Vital Signs Pulse 93 04/05/24 14:45 BP 128/80 04/05/24 14:45 BMI result Body Mass Index 26.8 Const General: comfortable and no acute distress Orientation/consciousness: patient oriented x3 HEENT Other: Unremarkable Head: Yes normal to inspection Neck Neck: Yes normal visual inspection Chest Chest palpation & inspection: normal inspection of the chest Resp Auscultation: clear to auscultation bilaterally Cardio Palpation: normal PMI Heart sounds: S1 normal heart sound present, S2 normal heart sound present, no gallops, no murmurs and no rubs GI Palpation (GI): Soft to palpation Back/Spine/Pelvis Other: unremarkable Skin General skin exam: no rashes or lesions noted Neuro General: patient oriented x3 Extrem General: Yes normal to inspection Psych Mental Status: mental status grossly normal Office Procedures EKG Details: EKG with sinus rhythm at 93/Min; right bundle-branch block and left anterior fascicular [place] [id number], Complete Assessment & Plan Assessment & Plan (1) Atherosclerotic cardiovascular disease: Code(s): I25.10 - Atherosclerotic heart disease of [place] coronary artery without angina pectoris Category: Medical (2) Right bundle branch block: Code(s): I45.10 - Unspecified right bundle-branch block Category: Medical Plan Cardiac studies reviewed. EKG as described above. In the echocardiogram, LVEF was 53%. No obvious wall motion abnormalities. Right ventricular systolic function mildly decreased. In the chest CT scan, moderate to severe coronary artery calcification. In the exercise stress test, was able to exercise for 6 minutes 30 seconds on Ludin protocol and reached 7 METS. Had shortness of breath. No EKG evidence of ischemia. Perfusion component was normal. Overall, treatment for stable coronary artery disease. He can take low-dose aspirin. Continue statins. This already request for follow-up lipids. Blood pressure stable on lisinopril. Smoking cessation. Follow up in 6 months. Coding Level of Care Code Est Pt Level 4 (48931) Diagnoses Atherosclerotic cardiovascular disease I25.10 Right bundle branch block I45.10 CPT Codes EKG - CPT: 40798-[id number], Complete ([id number])
== END 2024-04-05 15:01 | disposition home or self-care (01) ==
PROVIDERS: PCP Nurse Practitioner Family; Visit Provider Internal Medicine
DX: I25.10 Atherosclerotic heart disease of native coronary artery without angina pectoris (principal); I45.10 Unspecified right bundle-branch block
CPT/HCPCS: 93010; 99214

== ENCOUNTER → 2024-04-05 14:41 | Outpatient (BNVA) | payer MEDICARE, MEDICAID, SELFPAY | PROVIDERS: PCP Nurse Practitioner Family; Visit Provider Internal Medicine | DX: I25.10 Atherosclerotic heart disease of native coronary artery without angina pectoris (principal); I45.10 Unspecified right bundle-branch block; I45.2 Bifascicular block; R94.31 Abnormal electrocardiogram [ECG] [EKG] | CPT/HCPCS: 93005; 99212 ==

== ENCOUNTER 2024-05-18 10:43 | Outpatient (REF) | payer MEDICARE, MEDICAID, SELFPAY | END 2024-05-18 10:44 | disposition home or self-care (01) | LOC: HO.LNP 10:43 | PROVIDERS: PCP Nurse Practitioner Family; Visit Provider Nurse Practitioner Family | DX: N39.0 Urinary tract infection, site not specified (principal); B96.1 Klebsiella pneumoniae [K. pneumoniae] as the cause of diseases classified elsewhere; Z13.9 Encounter for screening, unspecified; R35.0 Frequency of micturition; N52.9 Male erectile dysfunction, unspecified; R33.9 Retention of urine, unspecified; R30.0 Dysuria | CPT/HCPCS: 51798; 81003; 87086; 87088; 87186; 99212 ==

== ENCOUNTER 2024-05-18 10:43 | Outpatient (AMB) | payer MEDICARE, MEDICAID, SELFPAY ==
--- NOTE | 2024-05-18 10:45 | MHC.OFFVIS ---
Intake Visit Reasons: 3 month follow up/ PVR Intake Note: Patient is present today for 3m/PVR Urology Medication:TADALAFIL,VITMAIN C, METHENAMINE HIPPURATE, ALLOPURINOL Antibiotic Allergy:NONE Blood Thinner:NONE Todays PVR:132ml Imaging Account Manager Required: No Allergies No Known Allergies Allergy (Verified 05/18/24 11:12) Medication List - Last Reconciled 05/18/24 by JAJA Reyes- allopurinol 300 mg PO DAILY ascorbic acid (vitamin C) 1 g PO DAILY 90 days atorvastatin 40 mg PO QPM blood pressure monitor daily use lisinopril 10 mg PO DAILY metoprolol succinate ER 50 mg PO DAILY 90 days tadalafil (Cialis) 5 mg PO DAILY 90 days HPI Comments Details: Gigi is a pleasant 59-year-old male patient of Dr. English. He has a past medical history of nicotine dependence, hypertension, and gout. He presents to the office today for follow-up of his recurrent urinary tract infections, erectile dysfunction, in lower urinary tract symptoms with incomplete bladder emptying. In discussion with the patient today he reports to be doing and feeling well. He reports since his last office visit here approximately 3 months ago he continues to experience dysuria as well as foul-smelling urine. He reports he was only given 1 dose of fosfomycin however never called the office to follow-up as he was busy. In office urinalysis results reviewed with the patient today. 2+ leukocytes positive nitrates. PVR 132ml's. Previous workup has included a retroperitoneal ultrasound 10/22 noting right kidney with benign-appearing renal cysts measuring up to 1.5 cm. No follow-up imaging is recommended per radiology report. There is no calculi or lesions noted. Left kidney with no calculi and or lesions noted. Trace left hydronephrosis. The bladder is well distended and normal. Debris within the bladder noted. Prostate volume is approximately 23 mL. He underwent an office cystoscopy with Dr. Cervantes 11/22 which noted tight prostate with mild trabeculation. When asked patient reports significant improvement in erectile dysfunction with 5 mg of Cialis and is requesting a refill. He otherwise denies urinary urgency, incontinence, nocturia, hematuria, flank pain, fever, and or chills. Discussed and stressed at length importance of limiting/quitting smoking, daily exercise/brisk walking, healthy eating habits, and adequate sleep for improvement in urinary symptoms, erectile dysfunction, as well as overall health and well-being.PSAs are as follows: 07/22 0.6, 09/22 0.9 Patient otherwise denies any other issues or concerns at this time. In review of patients charts urine cultures 07/23, 05/23, 03/25, 09/21, 07/22, 05/22, 12/20 all noted Klebsiella pneumoniae. Patient with previous microgen 11/22 that noted Klebsiella pneumoniae and Raoultella omithinolytica. He reports compliance with methenamine and vitamin-C as prescribed. We discussed and educated regarding holding methenamine and vitamin-C while on treatment dose for urinary tract infection. All questions were answered. Plan To address the issue of recurrent urinary tract infections, a urine culture has been ordered to tailor appropriate antibiotic therapy. Considering his persistent bladder dysfunction, a PSA test will be conducted to assess any prostate abnormalities. The patient will continue with vitamin C and start methenamine once culture results are available. I emphasized timely follow-up visits and yearly PSA monitoring to assess any changes in prostate health. The patient has been encouraged to monitor symptoms carefully and return promptly if they persist or exacerbate. Patient was informed and verbally consented to the use of an ambient scribe for clinic note documentation during this visit. [facility] Medical History Tracheal anomaly Atherosclerotic cardiovascular disease Nicotine dependence, cigarettes, uncomplicated Tubular adenoma of colon HTN (hypertension) Gout Surgical History History of elbow surgery History of dental surgery History of tonsillectomy History of appendectomy History of colonoscopy Family History Mother HTN (hypertension) Maternal Uncle Cancer Family/Other Cancer Social History Household Members: Family Housing: Condominium Alcohol intake: current Alcohol intake frequency: a few times a month Patient Tobacco Use Status: Current everyday Tobacco user Cigarettes Per Day: 3 Years Smoked: (current smoker - onset 15yo, 1ppd x 42yrs, now 5-15cig/day - 40pyh) e-Cigarette/Vaping Use: Never Used Second Hand Smoke Exposure: Yes Substance Use Type: Marijuana service: No Current occupational status: disabled Current occupational exposures/hazards: No Cognitive needs: No Hearing needs: No Vision needs: No Review of Systems Const Reports as per HPI Eyes Reports no additional complaints ENT Reports no additional complaints Card Reports as per HPI Resp Reports no additional complaints GI Reports no additional complaints Reports as per HPI Musc Reports no additional complaints Neuro Reports no additional complaints Psych Reports no additional complaints Endo Reports no additional complaints Shar/Lymph Reports no additional complaints Aller/Immun Reports no additional complaints Physical Exam Const General: cooperative, healthy appearing, comfortable, no acute distress, well developed, alert and awake Orientation/consciousness: patient oriented x3 Limitations: no limitations HEENT Head: Yes normal to inspection, Yes normocephalic and Yes atraumatic Ears: hearing grossly normal bilaterally Eyes General: appearance normal, both eyes and all related structures Neck Neck: Yes normal visual inspection and Yes trachea midline Chest Chest palpation & inspection: normal inspection of the chest Resp Effort & Inspection: normal respiratory effort and able to speak in complete sentences Cardio Rate: regular rate GI Inspection: Yes normal to inspection Rectal Exam - Male: Yes other (enlarged prostate ) General: Yes no CVA tenderness Back/Spine/Pelvis Back: no CVA tenderness Skin General skin exam: no rashes or lesions noted Neuro General: patient oriented x3 Extrem General: Yes normal to inspection Psych Appearance: grossly normal and well kempt Mental Status: mental status grossly normal Speech and movement: Normal speech and movement present and Clear speech present Affect: normal affect Attitude: cooperative Thought process: Normal thought process present Thought content: Normal thought content present Insight: Fair insight present (Psych) Judgement: Fair judgement present (Psych) Office Procedures Post Void Residual Post Residual Void Post Void Residual (PVR): 132 [id number] Void Residual by ultrasound Results AMB Urinalysis, Automated UA Leukoctes 125 Jhonny/uL Last Edit by Ruth Guzman on 05/18/24 10:58 UA Nitrite Positive Last Edit by Ruth Guzman on 05/18/24 10:58 UA Urobilinogen 3.5 mg/dL Last Edit by Ruth Guzman on 05/18/24 10:58 UA Protein 1 mg/dL Last Edit by Ruth Guzman on 05/18/24 10:58 UA pH 6.0 Last Edit by Ruth Guzman on 05/18/24 10:58 UA Blood 0 Frederick/uL Last Edit by Ruth Guzman on 05/18/24 10:58 UA Specific [place] 1.015 Last Edit by Ruth Guzman on 05/18/24 10:58 UA Ketone Negative Last Edit by Ruth Guzman on 05/18/24 10:58 UA Bilirubin 0 mg/dL Last Edit by Ruth Guzman on 05/18/24 10:58 UA Glucose 0 mg/dL Last Edit by Ruth Guzman on 05/18/24 10:58 Results Reviewed Results Reviewed: Laboratory Last Values Urine pH (Auto) 6.0 05/18/24 10:48 Specific [place] (Auto) 1.015 05/18/24 10:48 Urine Protein (Auto) 1 mg/dL 05/18/24 10:48 Glucose (UA)(Auto) 0 mg/dL 05/18/24 10:48 Urine Ketones (Auto) Negative 05/18/24 10:48 Urine Blood (Auto) 0 Frederick/uL 05/18/24 10:48 Urine Nitrite (Auto) Positive 05/18/24 10:48 Urine Bilirubin (Auto) 0 mg/dL 05/18/24 10:48 Urine Urobilinogen (Auto) 3.5 mg/dL 05/18/24 10:48 Leukocyte Esterase (Auto) 125 Jhonny/uL 05/18/24 10:48 Assessment & Plan Assessment & Plan (1) Complicated urinary tract infection: Code(s): N39.0 - Urinary tract infection, site not specified Category: Medical (2) Foul smelling urine: Code(s): R82.90 - Unspecified abnormal findings in urine Category: Medical (3) Recurrent UTI: Code(s): N39.0 - Urinary tract infection, site not specified Category: Medical (4) Erectile dysfunction: Code(s): N52.9 - Male erectile dysfunction, unspecified Category: Medical (5) Incomplete bladder emptying: Code(s): R33.9 - Retention of urine, unspecified Category: Medical (6) Dysuria: Code(s): R30.0 - Dysuria Category: Medical Plan In office urinalysis results reviewed the patient today; as noted above; will send for urine culture; will await results for potential treatment. PVR 132 mL. Continue methenamine and vitamin-C; refill provided Continue Cialis; refill provided. Discussed UTI prevention with D mannose supplement, vitamin-C, increasing fluid intake, behavioral therapy with timed voiding, perineal hygiene and postcoital voiding, and management of constipation with stool softeners and increased fiber intake. We discussed importance of calling office with UTI like symptoms and not awaiting follow-up appointments. Discussed importance of limiting/quitting nicotine dependence for urological issues as well as overall health and well-being. Will obtain PSA. Follow-up in 3 months with PSA and PVR; or sooner with any issues, concerns, and or questions. Orders: Orders Urine Culture Today N39.0 - Urinary tract infection, site not specified AMB Urinalysis Automated Today Z13.9 - Encounter for screening, unspecified AMB Post Void Residual by ultrasound Today N39.0 - Urinary tract infection, site not specified Prostate Specific Antigen Today R33.9 - Retention of urine, unspecified Medications: Refilled tadalafil (Cialis) [facility] [id number] 5 mg PO DAILY 90 days 90 tabs 1RF Coding Level of Care Code Est Pt Level 4 (21025) Diagnoses Complicated urinary tract infection N39.0 Foul smelling urine R82.90 Recurrent UTI N39.0 Erectile dysfunction N52.9 Incomplete bladder emptying R33.9 Dysuria R30.0 CPT Codes Post Residual Void - PVR CPT Code: 04128-Xhnw Void Residual by ultrasound ([id number])
--- OUTSIDE RECORDS SUMMARY | 2024-05-18 12:46 | XMS_ITS | Clinical Summary ---
Author Organization [employer] Address [address] [facility] [address] [place] [address] Care Team Providers Care Tool Salvage Worker Name Role Phone Unavailable Primary Care Provider [...] 2041 Pneumococcal Vaccine: 50+ Years Completed 07/07/2022 HIB Vaccines Aged Out No longer eligi [...]
--- OUTSIDE RECORDS SUMMARY | 2024-05-18 12:46 | XMS_ITS | Data Portability ---
Author Organization [facility] s, [address] Address [address] [place] [address] Assessment No assessment recorded. Plan of Treatment Reminders Order Date Submit Date Provider Last Modified By Organization Details Last Modified Time Details Appointments None recorded. Lab urinalysis , dipstick 2022 023 [email or web address] [facility], [address] [facility], [place], [address], 16:35:39 culture, urine 2022 [address] [place] [facility], [address] [place] [address], [address], 16:06:37 Referral None recorded. Procedures None recorded. Surgeries None recorded. Imaging None recorded. Medication Orders Bactrim DS 800 mg-160 mg tablet 2022 023 [facility][id number], [address] [facility] , [place], [address], 16:35:40 Patient TargetsNo targets recorded. Patient InstructionsNo instructions recorded. Reason for Referral None Reported. Results Created Date Observation Date Name Description Value Unit Range Abnormal Flag Note LastModifiedBy Organization Detail LastModifiedTime 05/01/1905/04/2022 URINE CULTU RECITLALY urine culture, routine FINAL REPORT abnormal Not Available [facility] ([facility]) [address] [facility], [place], [address], 05/04/2022 08:06:46 05/01/1905/04/2022 URINE CULTU RE, ROUTI [...] ng units per mL Not Available [facility] ([facility]) [address] [facility], [place], [address], 05/04/2022 08:06:46 05/01/1905/04/2022 URINE CULTU RE, ROUTI [...] thopr im/Villagomez lfa S Not Available [facility] ([facility]) [address] [facility], [place], [address], 05/04/2022 08:06:46 05/01/1904/30/2022 urina lysis , dipst ick Unknown Analyte Normal = light yellow Not Available [email or web address] [facility] [address] [facility], [place], [address], 04/30/2022 15:16:56 05/01/19 23 04/30/2022 urina lysis , dipst ick Unknown Analyte Dark Yellow Not Available [facility], [place], [address], 04/30/2022 15:16:56 05/01/19 23 04/30/2022 urina lysis , dipst ick Unknown Analyte Normal = clear Not Available mariusz pham [address], [place], [address], 04/30/2022 15:16:56 05/01/19 23 04/30/2022 urina lysis , dipst ick Unknown Analyte Turbid Not Available abdiaziz [address], [place], [address], 04/30/2022 15:16:56 05/01/19 23 04/30/2022 urina lysis , dipst ick Unknown Analyte Normal = negati ve Not Available mariusz pham [address], [place], [address], 04/30/2022 15:16:56 05/01/1904/30/2022 urina lysis , dipst ick Unknown Analyte Negati ve Not Available mariusz pham [address], [place], [address], 04/30/2022 15:16:56 05/01/19 23 04/30/2022 urina lysis , dipst ick Unknown Analyte Normal = Negati ve Not Available mariusz pham [address], [place], [place], [address], 04/30/2022 15:16:56 05/01/19 23 04/30/2022 urina lysis , dipst ick Unknown Analyte Negati ve Not Available mariusz pham [address], [place], [place], [address], 04/30/2022 15:16:56 05/01/19 23 04/30/2022 urina lysis , dipst ick Unknown Analyte Normal = Negati ve Not Available [facility] [address], [place], [address], 04/30/2022 15:16:56 05/01/19 23 04/30/2022 urina lysis , dipst ick Unknown Analyte Trace Not Available [address] [place] [address], [place], [address], 04/30/2022 15:16:56 05/01/19 23 04/30/2022 urina lysis , dipst ick Unknown Analyte Normal = 1.010, 1.015, 1.020 Not Available [address] [place] [address], [place], [address], 04/30/2022 15:16:56 05/01/19 23 04/30/2022 urina lysis , dipst ick Unknown Analyte 1.015 Not Available [address] [place] [address], [place], [address], 04/30/2022 15:16:56 05/01/19 23 04/30/2022 urina lysis , dipst ick Unknown Analyte Normal = Negati ve Not Available [address], [place], [address], 04/30/2022 15:16:56 05/01/19 23 04/30/2022 urina lysis , dipst ick Unknown Analyte Trace- lysed Not Available [address] [place] [address], [place], [address], 04/30/2022 15:16:56 05/01/19 23 04/30/2022 urina lysis , dipst ick Unknown Analyte Normal = 6.5, 7.0, 7.5, 8.0 Not Available mariusz ph[address], [place], [address], 04/30/2022 15:16:56 05/01/19 23 04/30/2022 urina lysis , dipst ick Unknown Analyte 6.0 Not Available [facility] [address], [place], [address], 04/30/2022 15:16:56 05/01/19 23 04/30/2022 urina lysis , dipst ick Unknown Analyte Normal = Negati ve Not Available mariusz pham [address], [place], [address], 04/30/2022 15:16:56 05/01/19 23 04/30/2022 urina lysis , dipst ick Unknown Analyte Negati ve Not Available mariusz pham [address], [place], [address], 04/30/2022 15:16:56 05/01/19 23 04/30/2022 urina lysis , dipst ick Unknown Analyte Normal = 0.2, 1.0 Not Available mariusz pham [address], [place], [address], 04/30/2022 15:16:56 05/01/19 23 04/30/2022 urina lysis , dipst ick Unknown Analyte 0.2 E.U./d L Not Available [facility] [address], [place], [address], 04/30/2022 15:16:56 05/01/19 23 04/30/2022 urina lysis , dipst ick Unknown Analyte Normal = Negati ve Not Available [facility] [address], [place], [address], 04/30/2022 15:16:56 05/01/1904/30/2022 urina lysis , dipst ick Unknown Analyte Positi ve Not Available [address] [place], [address], 04/30/2022 15:16:56 05/01/19 23 04/30/2022 urina lysis , dipst ick Unknown Analyte Normal = Negati ve Not Available [address] [place], [address], 04/30/2022 15:16:56 05/01/1904/30/2022 urina lysis , dipst ick Unknown Analyte Small Not Available [address], [address], 04/30/2022 15:16:56 Result Notes None recorded. Problems Name Problem SNOMED Code Status Onset Date Resolution Date Notes Provider Name and Address Organization Details Recorded Time Hypertensive disorder 22182668 Active 2022 QUAN MONTES DE OCA null, [place] - [facility] 15:14:28 Gout 09284946 Active 2022 QUAN MONTES DE OCA null, [place] - [facility] 15:14:41 Constipation 77922985 Active 2022 QUANCIERRA BLEDSOEEY null, PA - [...] Updated DateTime 3 182.88 cm 27.8 kg/m2 14100.4 4 g 7 18 /min 98 % 98 % 86 /min 97.8 [degF] 128 mm[Hg] 86 mm[Hg] QUAN MONTES DE OCA [facility] 15:18:32 Social History Question Answer Notes LastModified by Organizat ion Details LastModified Time Tobacco Smoking Status Current Every Day Smoker QUAN aquino PA [facility] 04/30/2022 15:16:48 What Is Your Level Of Alcohol Consumption? Moderate [email or web address] Information not available 04/30/2022 How Many Times Per Week Do You Consume Alcohol? 3-4 Times Per Week [email or web address] Information not available 04/30/2022 Which Illicit Or Recreational Drugs Have You Used? Marijuana [email or web address] Information not available 04/30/2022 Do You Or Have You Ever Used E-cigarettes Or Vape? Current User Of Electronic Cigarettes Occasional [email or web address] Information not available 04/30/2022 How Much Tobacco Do You Smoke? 0.5 PPD [email or web address] Information not available 04/30/2022 Do You Use Any Illicit Or Recreational Drugs? Yes [email or web address] Information not available 04/30/2022 Have You Recently Traveled Abroad? No [email or web address] Information not available 04/30/2022 Do You Or Have You Ever Used Any Other Forms Of Tobacco Or Nicotine? Yes Information not available 04/30/2022 Sex: Unknown Functional Status None recorded. Mental Status None recorded. Family History Relationship Description Onset Age of this Age Resolved Age Notes LastModified by Organization Details LastModified Time Father No current problems or disability [email or web address] Not available 04/30 15:15:48 Mother No current problems or disability [email or web address] Not available 04/30 15:15:48 Medical History No medical history recorded. Past Encounters Encounter ID Performer Location Encounter Start Date Encounter Closed Date Diagnosis/Indication Diagnosis SNOMED-CT Code Diagnosis ICD10 Code Diagnosis Note [id number] [address] [place] [address] 10/27/2020 12:16:51 10/27/2020 14:42:21 [id number] SPENCER HAWTHORNE MD [address] [place] [address] 04/30/2022 12:24:54 04/30/2022 16:36:44 Abdominal pain 54224110 R10.9 Pyuria 6418318 R82.81 Health Concerns Section Related Observation LastModified by Organization Detai ls LastModified Time None Recorded Concern Status LastModified by Organization Details LastModified Time None Recorded Advance Directives Directive None Recorded Payers Encounter Date Sequence Insurance Name Policy Number Policy Guerra Covered Member ID Guerra Member ID Guarantor Name 10/27/2020 1 [facility] (MEDICARE REPLACEMENT/A DVANTAGE - PPO) [id number] Gigi Carranza [id number] Gigi Carranza 10/27/2020 2 MEDICARE [place]: [employer] Gigi Carranza [id number] Gigi Carranza 04/30/2022 1 [facility] (MEDICARE REPLACEMENT/A DVANTAGE - PPO) [id number] Gigi Carranza [id number] Gigi Carranza Notes Date Note Type Note [...] dysuria. Afebrile. No N/V. SPENCER HAWTHORNE MD [address] [place], [place] [address], [address], [place] - [facility] 04/30/2022 16:40:57
--- OUTSIDE RECORDS SUMMARY | 2024-05-18 12:46 | XMS_ITS | Clinical Summary ---
Author Organization [facility] Address [address] [place] [address] Phone Care Team Providers Care Desk Pens Assembler Name Role Phone Sai Wagner NP Primary Care Provider [phone] Allergies No known active allergies Medications allopurinol (ZYLOPRIM) 300 MG tablet Take 1 tablet by mouth 1 (one) time each day Active probenecid (BENEMID) 500 MG tablet Take 1 tablet by mouth 1 (one) time each day Active lisinopril 10 MG tablet TAKE 1 TABLET BY MOUTH EVERY DAY 90 tablet 5 07/16/2022 Active polycarbophil (FIBERCON) 625 MG tablet Take 2 tablets by mouth 1 (one) time each day Active metoprolol succinate XL (TOPROL XL) 25 MG 24 hr tablet Take 1 tablet (25 mg total) by mouth 1 (one) time each day in the evening 90 tablet 04/08/2024 Active Active Problems Problem Noted Date Diagnosed Date Erectile dysfunction 07/04/2021 Cigarette smoker 07/04/2021 Obesity 07/04/2021 Osteoarthritis 07/04/2021 Tachycardia 07/12/2020 Orthostatic hypotension 07/12/2020 Alcohol intake above recommended sensible limits 07/12/2020 Macrocytosis 07/12/2020 Edema 07/11/2020 Hypertension 07/11/2020 Gouty arthropathy 07/11/2020 Resolved Problems Problem Noted Date Diagnosed Date Resolved Date Gout, not otherwise specified 07/12/2020 01/04/2022 Encounters Date Type Department Care Team Description 04/08/2024 Refill [facility] [address] [place] [address] Santi Solares MD from Last 3 Months Immunizations Name Administration Dates Next Due Td, [...] Sigmoidoscopy 2015 Influenza Vaccine (#1) 2023 Insurance [facility] MEDICARE [facility] MEDICARE Care Teams Desk Pens Assembler Relationship Specialty Start Date End Date Sai Wagner NP [address] [place] [address] PCP - General 03/12/20
== END 2024-05-18 11:09 | disposition home or self-care (01) ==
LOC: HO.HUSH 10:44
PROVIDERS: PCP Nurse Practitioner Family; Visit Provider Nurse Practitioner Family
DX: N39.0 Urinary tract infection, site not specified (principal); R82.90 Unspecified abnormal findings in urine; N52.9 Male erectile dysfunction, unspecified; R33.9 Retention of urine, unspecified; R30.0 Dysuria; Z13.9 Encounter for screening, unspecified
CPT/HCPCS: 99214

== ENCOUNTER 2024-05-24 08:34 | Outpatient (REF) | payer MEDICARE, MEDICAID, SELFPAY ==
[2024-05-24 10:16] LABS: MANUAL DIFF FLAG NO
[2024-05-24 10:20] LABS: Appearance Urine Cloudy; Color Urine Yellow; Glucose Urine UA Negative (Negative); Leukocyte Esterase Urine Moderate (2+) (Negative); Nitrite Urine Positive (Negative); PH 5.5 (5.0-9.0); UMIC TRIGGER UACC YES; Urine Blood Negative (Negative); Urine Ketones Negative (Negative); Urine Protein Negative (Neg-Trace)
[2024-05-24 10:25] LABS: Basophils Absolute Auto 0.1 X10*3/uL (0.0-0.2); Basophils Percent Auto 1.1 % (0-2); Eosinophils Absolute Auto 0.2 X10*3/uL (0.0-0.4); Eosinophils Percent Auto 3.1 % (0-4); Hematocrit 40.8 % (42.0-52.0); Imm Gran Abs Auto 0.02 X10*3/uL (0.00-0.03); Imm Gran Pct Auto 0.3 % (0.0-0.4); Lymphocytes Absolute Auto 1.7 X10*3/uL (1.2-4.9); Lymphocytes Percent Auto 22.6 % (20-40); Mean Corpuscular HGB Conc 34.3 g/dl (31.0-36.0); Mean Corpuscular Hemoglobin 35.9 pg (27.0-33.0); Mean Corpuscular Volume 104.6 fL (80.0-98.0); Mean Platelet Volume 10.5 fL (9.4-12.4); Monocytes Absolute Auto 0.5 X10*3/uL (0.1-1.2); Monocytes Percent Auto 6.2 % (2-11); Neutrophils Percent Auto 66.7 % (45-73); Platelet Count 164 X10*3/uL (160-400); Red Cell Distribution Width 12.8 % (11.0-16.0); White Blood Count 7.4 X10*3/uL (4.8-10.8)
[2024-05-24 10:27] LABS: Bacteria Urine 4+ (None Seen); Hyaline Casts Urine 0-2 /LPF (0-2); RBC Urine 0-2 /HPF (0-2); Squamous Epithelial Cell Urine 0-2 /HPF (0-2); UACC Culture Trigger YES; WBC Urine >50 /HPF (0-5)
[2024-05-24 11:21] LABS: Alanine Aminotransferase 10 U/L (0-40); Albumin Level 3.8 g/dL (3.5-5.0); Alkaline Phosphatase 72 U/L (39-117); Anion Gap 9 (12-20); Aspartate Amino Transferase 27 U/L (5-37); Bilirubin Total 0.5 mg/dL (0.0-1.0); Blood Urea Nitrogen 13 mg/dL (9-16); Calcium 8.8 mg/dL (8.4-10.2); Carbon Dioxide 25 mmol/L (22-29); Chloride 110 mmol/L (96-108); Cholesterol 111 mg/dL (<200); Estimated Glomerular Filt Rate > 60; Glucose Fasting 115 mg/dL (60-99); HDL Cholesterol 53 mg/dL (>40); LDL Cholesterol Calculated 43 mg/dL (<100); Potassium 4.4 mmol/L (3.3-5.1); Sodium 140 mmol/L (135-145); Total Protein 6.5 g/dL (6.5-8.0); Triglycerides 79 mg/dL (<150)
[2024-05-24 12:06] LABS: TSH reflex Free T4 4.62 uIU/mL (0.32-4.0)
== END 2024-05-24 08:35 | disposition home or self-care (01) ==
LOC: HO.HMGCLDS 08:34
PROVIDERS: PCP Nurse Practitioner Family; Referring Provider Nurse Practitioner Family; Visit Provider Nurse Practitioner Family
DX: I10 Essential (primary) hypertension (principal); R33.9 Retention of urine, unspecified; Z12.5 Encounter for screening for malignant neoplasm of prostate
CPT/HCPCS: 36415; 80053; 80061; 81001; 84153; 84439; 84443; 85025; 87086; 87088; 87186

== ENCOUNTER → 2024-05-25 09:34 | Outpatient (BNVA) | payer MEDICARE, MEDICAID, SELFPAY | PROVIDERS: PCP Nurse Practitioner Family; Visit Provider Nurse Practitioner Family | DX: Z00.00 Encounter for general adult medical examination without abnormal findings (principal); R79.89 Other specified abnormal findings of blood chemistry; I10 Essential (primary) hypertension | CPT/HCPCS: 96127; 99396 ==

== ENCOUNTER 2024-05-25 09:56 | Outpatient (AMB) | payer MEDICARE, MEDICAID, SELFPAY ==
--- NOTE | 2024-05-25 09:48 | MHC.PC.OV ---
Vital Signs 05/25/24 09:49 Height 6 ft 1 in Weight 211 lb 6 oz BMI 27.9 BP 130/78 Blood Pressure Location Rt brachial Position Sitting Respiration 18 Pulse 82 Pulse Source Pulse Oximeter Temp 98.4 F Temp Source Oral Pulse Oximetry (%) 98 Oxygen Delivery Method Room Air Intake Visit Reasons: Annual PE Allergies No Known Allergies Allergy (Verified 05/25/24 10:27) Medication List - Last Reconciled 05/25/24 by Sai Wagner [facility]- allopurinol 300 mg PO DAILY atorvastatin 40 mg PO QPM blood pressure monitor daily use lisinopril 10 mg PO DAILY metoprolol succinate ER 50 mg PO DAILY 90 days sulfamethoxazole-trimethoprim 800-160 mg (Bactrim DS) 1 tab PO BID 14 days tadalafil (Cialis) 5 mg PO DAILY 90 days Tobacco use date assessed: 05/25/24 Dental Screening Dental Screen Date: 05/25/24 Did you have a dental visit in the last 12 months?: No Did you have a dental problem in the last 6 months where you did not have access to dental care?: No Was dental information given to patient?: Patient has dentist HPI Annual PE HPI Details History of Present Illness The patient is a 59-year-old male presenting for a routine colonoscopy screening referral. He denies any symptoms such as chest pain, shortness of breath, blood in stool, constipation, diarrhea, or urinary issues. The patient is enrolled in a low-dose CAT scan program and handles his urologic and cardiologic evaluations as part of his ongoing health maintenance. elevated tsh, will cont to monitor Health Maintenance - Colonoscopy screening planned for summer. - Participation in a low-dose CAT scan program. Social History Review of Systems - Cardiovascular: Denies chest pain. - Respiratory: Denies shortness of breath. - Gastrointestinal: Denies blood in stool, constipation, diarrhea. - Genitourinary: Denies urinary issues. Physical Exam General: Cooperative, healthy appearing, comfortable, no acute distress and well developed Orientation: Patient oriented x3 Limitations: No limitations Head: Normal to inspection Ears: Hearing grossly normal bilaterally Nose: Normal external nose present Face and sinus: Normal facial exam Eyes: Appearance normal, both eyes and all related structures Neck: Normal visual inspection and Yes full ROM Respiratory: Normal respiratory effort and able to speak in complete sentences. Clear to auscultation bilaterally Cardiovascular: Regular rate and rhythm. Normal S1 and S2 GI: Normal to inspection. Soft to palpation and nontender Skin: No rashes or lesions noted Neuro: Patient oriented x3 Extremities: Normal to inspection Results Plan I will proceed with the referral for colonoscopy screening as part of the patient's routine health maintenance. His participation in the low-dose CAT scan program will continue to aid in monitoring his health. Discussion Notes During our discussion, I explained the importance of regular colonoscopy screenings for individuals over 50 as part of colorectal cancer prevention. I described potential risks and benefits of colonoscopy, emphasizing early detection as critical. The patient agreed to proceed with scheduling. We also reviewed his involvement in the low-dose CAT scan program, and I underscored its role in ongoing health surveillance. I reaffirmed the significance of these screenings in his comprehensive health care. Patient Instructions - Schedule and attend the colonoscopy appointment in the summer. - Continue participation in the low-dose CAT scan program for health monitoring. - Remain vigilant for any gastrointestinal or urinary symptoms and report any new issues immediately. [facility] Medical History Tracheal anomaly Atherosclerotic cardiovascular disease Nicotine dependence, cigarettes, uncomplicated Tubular adenoma of colon HTN (hypertension) Gout Surgical History History of elbow surgery History of dental surgery History of tonsillectomy History of appendectomy History of colonoscopy Family History Mother HTN (hypertension) Maternal Uncle Cancer Family/Other Cancer Social History Household Members: Family Housing: [facility] Alcohol intake: current Alcohol intake frequency: a few times a month Patient Tobacco Use Status: Current everyday Tobacco user Cigarettes Per Day: 3 Years Smoked: (current smoker - onset 15yo, 1ppd x 42yrs, now 5-15cig/day - 40pyh) e-Cigarette/Vaping Use: Never Used Second Hand Smoke Exposure: Yes Substance Use Type: Marijuana service: No Current occupational status: disabled Current occupational exposures/hazards: No Cognitive needs: No Hearing needs: No Vision needs: No Questionnaire PHQ-9 Over the last 2 weeks, how often have you been bothered by any of the following problems? 1. Little interest or pleasure in doing things: several days 2. Feeling down, depressed, or hopeless: not at all 3. Trouble falling or staying asleep, or sleeping too much: several days 4. Feeling tired or having little energy: several days 5. Poor appetite or overeating: not at all 6. Feeling bad about yourself - or that you are a failure or have let yourself or your family down: not at all 7. Trouble concentrating on things, such as reading the newspaper or watching television: not at all 8. Moving or speaking so slowly that other people could have noticed. Or the opposite - being so fidgety or restless that you have been moving around a lot more than usual: not at all 9. Thoughts that you would be better off or of hurting yourself in some way: not at all Total score: 3 Depression Screening Interpretation: Negative Depression Screening Done: Yes 54427 - PHQ-9 Billing: Yes Source: Developed by Drs. Efe Dalton, Sofia Crook, Idris Garay and colleagues, with an educational kaci from [employer]. Thrive Questionnaire Date Thrive assessed: 05/25/24 I am a: Patient What is your living situation today?: I have a steady place to live Within the past 12 months, did the food you bought not last and you didn't have the money to get more?: I choose not to answer this question Within the past 12 months, did you worry whether your food would run out before you got money to buy more?: I choose not to answer this question Do you have trouble paying for medicines?: No Do you have trouble getting transportation to medical appointments?: No Do you have trouble paying your heating and electricity bill?: No Do you have trouble taking care of your child, family member or friend?: I choose not to answer this question Do you have trouble with day-to-day activities such as bathing, preparing meals, shopping, managing finances, etc.?: I choose not to answer this question Are you currently unemployed and looking for a job?: I choose not to answer this question Are you interested in more education?: I choose not to answer this question Please select the resources that you would like help with: None Currently or been in a relationship where the following occur: I choose not to answer THRIVE Score: 0 AUDIT C Alcohol Use Questionnaire (AUDIT-C) 1. How often do you have a drink containing alcohol?: 2-4 times a month 2. How many drinks containing alcohol do you have on a typical day when you are drinking?: 3 or 4 3. How often do you have six or more drinks on one occasion?: Less than monthly Total Score: 4 Score Reviewed/Action Taken: Yes ZARI-7 AMB Questionnaire ZARI-7 Date ZARI - 7 assessed: 05/25/24 Feeling nervous, anxious, or on edge: 0 = Not at all Not being able to stop or control worryin = Not at all Worrying too much about different things: 0 = Not at all Trouble relaxin = Not at all Being so restless that it is hard to sit still: 0 = Not at all Becoming easily annoyed or irritable: 0 = Not at all Feeling afraid as if something awful might happen: 0 = Not at all Total ZARI-7 score (0-4 normal; 5-9 mild; 10-14 moderate; 15-21 severe): 0 Source: Developed by Drs. Efe Dalton, Sofia Crook, Idris Garay and colleagues, with an educational kaci from [employer]. ZARI-7 Assessment Billing ZARI-7 Assessment Tool: ZARI-7 Assessment 48590 Physical exam (Primary Care) Vital Signs: Last Vital Signs Temp 98.4 F 05/25/24 09:49 Pulse 82 05/25/24 09:49 Resp 18 05/25/24 09:49 BP 130/78 05/25/24 09:49 Pulse Ox 98 05/25/24 09:49 Oxygen Delivery Method Room Air 05/25/24 09:49 BMI result Body Mass Index 27.9 Tobacco/Smoking Status: Tobacco use Status Tobacco use date assessed 05/25/24 05/25/24 09:51 Patient Tobacco Use Status Current everyday Tobacco 05/25/24 09:49 e-Cigarette/Vaping Use Never Used 05/25/24 09:49 PHQ-9: PHQ-9 Score PHQ-9: Total score 3 05/25/24 09:51 Depression Screening Interpretation: Negative Thrive Assessment: Date of Thrive Assessment Date Thrive assessed 05/25/24 05/25/24 09:51 Currently or been in a relationship where the following occur: I choose not to answer Coding Level of Care Code Est Pt Prev Care 40-64y(98878) Diagnoses Screening for colon cancer Z12.11 Elevated TSH R79.89 Additional Codes ZARI-7 Assessment Billing - ZARI-7 Assessment Tool: ZARI-7 Assessment 30693 ([id number]) PHQ-9 - 34740 - PHQ-9 Billing: Yes ([id number]) Assessment & Plan Assessment & Plan (1) Screening for colon cancer: Code(s): Z12.11 - Encounter for screening for malignant neoplasm of colon Category: Medical (2) Elevated TSH: Code(s): R79.89 - Other specified abnormal findings of blood chemistry Category: Medical Plan . Orders: Orders TSH reflex Free T4 1 Month R79.89 - Other specified abnormal findings of blood chemistry Referrals Gastroenterology Referral Z12.11 - Encounter for screening for malignant neoplasm of colon
[2024-05-25 09:49] VITALS: BP 130/78; PULSE 82; RESP 18; TEMP 36.9; O2SAT 98; BMI 27.9
== END 2024-05-25 10:35 | disposition home or self-care (01) ==
PROVIDERS: PCP Nurse Practitioner Family; Visit Provider Nurse Practitioner Family
DX: Z00.00 Encounter for general adult medical examination without abnormal findings (principal); R79.89 Other specified abnormal findings of blood chemistry; Z12.11 Encounter for screening for malignant neoplasm of colon

== ENCOUNTER 2024-08-17 10:08 | Outpatient (AMB) | payer MEDICARE, MEDICAID, SELFPAY ==
--- NOTE | 2024-08-17 10:09 | MHC.OFFVIS ---
Intake Visit Reasons: 3m/PSA Intake Note: Patient is present today for 3m/PVR Urology Medication:TADALAFIL,VITMAIN C, METHENAMINE HIPPURATE, ALLOPURINOL Antibiotic Allergy:NONE Blood Thinner:NONE Todays PVR:41 Contract Implementation Analyst Required: No Accompanied by: Self / Same As Patient Allergies No Known Allergies Allergy (Verified 08/17/24 10:36) Medication List - Last Reconciled 08/17/24 by SENG Reyes allopurinol 300 mg PO DAILY ascorbic acid (vitamin C) 1 g PO DAILY 90 days atorvastatin 40 mg PO QPM blood pressure monitor daily use lisinopril 10 mg PO DAILY methenamine hippurate 1 g PO DAILY 90 days metoprolol succinate ER 50 mg PO DAILY 90 days tadalafil (Cialis) 5 mg PO DAILY 90 days HPI Comments Details: Gigi is a pleasant 59-year-old male patient of Dr. English. He has a past medical history of nicotine dependence, hypertension, and gout. He presents to the office today for follow-up of his recurrent urinary tract infections, erectile dysfunction, and lower urinary tract symptoms with incomplete bladder emptying. In discussion with the patient today he reports to be doing and feeling well. He denies having had any bothersome urinary issues or concerns since his last office visit here. He reports compliance with methenamine, vitamin-C, and low-dose Cialis as prescribed. In office urinalysis results reviewed with the patient today 3+ leukocytes positive nitrates. When asked he denies any UTI like symptoms. He denies urinary urgency, urinary frequency, incontinence, nocturia, hematuria, dysuria, foul smelling urine, changes to urinary stream, flank pain, fever, and or chills. He is happy with his current voiding parameters. PVR 41 mL. He does however discuss the loss of a couple of family members over the last few months. Previous workup has included a retroperitoneal ultrasound 10/22 noting right kidney with benign-appearing renal cysts measuring up to 1.5 cm. No follow-up imaging is recommended per radiology report. There is no calculi or lesions noted. Left kidney with no calculi and or lesions noted. Trace left hydronephrosis. The bladder is well distended and normal. Debris within the bladder noted. Prostate volume is approximately 23 mL. He underwent an office cystoscopy with Dr. Cervantes 11/22 which noted tight prostate with mild trabeculation. Recent PSA results reviewed with the patient today as noted and trended below: PSA: 07/22 0.6, 09/22 0.9, 05/24 0.5 Patient otherwise denies any other issues or concerns at this time. In review of patients charts urine cultures 05/24, 05/24, 11/23, 07/23, 05/23, 03/25, 09/21, 07/22, 05/22, 12/20 all noted Klebsiella pneumoniae. Patient with previous microgen 11/22 that noted Klebsiella pneumoniae and Raoultella omithinolytica. All questions were answered. [facility] Medical History Tracheal anomaly Atherosclerotic cardiovascular disease Nicotine dependence, cigarettes, uncomplicated Tubular adenoma of colon HTN (hypertension) Gout Surgical History History of elbow surgery History of dental surgery History of tonsillectomy History of appendectomy History of colonoscopy Family History Mother HTN (hypertension) Maternal Uncle Cancer Family/Other Cancer Social History [facility]hold Members: [facility] Alcohol intake: current Alcohol intake frequency: a few times a month Patient Tobacco Use Status: Current everyday Tobacco user Cigarettes Per Day: 3 Years Smoked: (current smoker - onset 15yo, 1ppd x 42yrs, now 5-15cig/day - 40pyh) e-Cigarette/Vaping Use: Never Used Second Hand Smoke Exposure: Yes Substance Use Type: Marijuana service: No Current occupational status: disabled Current occupational exposures/hazards: No Cognitive needs: No Hearing needs: No Vision needs: No Review of Systems Const Reports as per HPI Eyes Reports no additional complaints ENT Reports no additional complaints Card Reports as per HPI Resp Reports no additional complaints GI Reports no additional complaints Reports as per HPI Musc Reports no additional complaints Neuro Reports no additional complaints Psych Reports no additional complaints Endo Reports no additional complaints Shar/Lymph Reports no additional complaints Aller/Immun Reports no additional complaints Physical Exam Const General: cooperative, healthy appearing, comfortable, no acute distress, well developed, alert and awake Orientation/consciousness: patient oriented x3 Limitations: no limitations HEENT Head: Yes normal to inspection, Yes normocephalic and Yes atraumatic Ears: hearing grossly normal bilaterally Eyes General: appearance normal, both eyes and all related structures Neck Neck: Yes normal visual inspection and Yes trachea midline Chest Chest palpation & inspection: normal inspection of the chest Resp Effort & Inspection: normal respiratory effort and able to speak in complete sentences Cardio Rate: regular rate GI Inspection: Yes normal to inspection Rectal Exam - Male: Yes other (enlarged prostate ) General: Yes no CVA tenderness Back/Spine/Pelvis Back: no CVA tenderness Skin General skin exam: no rashes or lesions noted Neuro General: patient oriented x3 Extrem General: Yes normal to inspection Psych Appearance: grossly normal and well kempt Mental Status: mental status grossly normal Speech and movement: Normal speech and movement present and Clear speech present Affect: normal affect Attitude: cooperative Thought process: Normal thought process present Thought content: Normal thought content present Insight: Fair insight present (Psych) Judgement: Fair judgement present (Psych) Results AMB Urinalysis, Automated UA Leukoctes 500 Jhonny/uL Last Edit by Heide Wise MA on 08/17/24 10:23 UA Nitrite Positive Last Edit by Heide Wise MA on 08/17/24 10:23 UA Urobilinogen 0.2 mg/dL Last Edit by Heide Wise MA on 08/17/24 10:23 UA Protein 0 mg/dL Last Edit by Heide Wise MA on 08/17/24 10:23 UA pH 6.0 Last Edit by Heide Wise MA on 08/17/24 10:23 UA Blood 0 Frederick/uL Last Edit by Heide Wise MA on 08/17/24 10:23 UA Specific [place] 1.015 Last Edit by Heide Wise MA on 08/17/24 10:23 UA Ketone Negative Last Edit by Heide Wise MA on 08/17/24 10:23 UA Bilirubin 0 mg/dL Last Edit by Heide Wise MA on 08/17/24 10:23 UA Glucose 0 mg/dL Last Edit by Heide Wise MA on 08/17/24 10:23 Results Reviewed Results Reviewed: Laboratory Last Values Urine pH (Auto) 6.0 08/17/24 10:18 Specific [place] (Auto) 1.015 08/17/24 10:18 Urine Protein (Auto) 0 mg/dL 08/17/24 10:18 Glucose (UA)(Auto) 0 mg/dL 08/17/24 10:18 Urine Ketones (Auto) Negative 08/17/24 10:18 Urine Blood (Auto) 0 Frederick/uL 08/17/24 10:18 Urine Nitrite (Auto) Positive 08/17/24 10:18 Urine Bilirubin (Auto) 0 mg/dL 08/17/24 10:18 Urine Urobilinogen (Auto) 0.2 mg/dL 08/17/24 10:18 Leukocyte Esterase (Auto) 500 Jhonny/uL 08/17/24 10:18 Assessment & Plan Assessment & Plan (1) Incomplete bladder emptying: Code(s): R33.9 - Retention of urine, unspecified Category: Medical (2) Cystitis: Code(s): N30.90 - Cystitis, unspecified without hematuria Category: Medical (3) Recurrent UTI: Code(s): N39.0 - Urinary tract infection, site not specified Category: Medical (4) Erectile dysfunction: Code(s): N52.9 - Male erectile dysfunction, unspecified Category: Medical Plan In office urinalysis results reviewed with the patient today; as noted above. PVR 42 mL. Recent PSA results reviewed with the patient today; as noted above. He currently denies any bothersome urinary issues or concerns. He reports be happy with current voiding parameters. Continue methenamine, vitamin-C, and Cialis 5 mg daily; as prescribed; refill provided. Will continue with surveillance monitoring. Follow-up in 6 months with PVR; or sooner with any issues, concerns, and or questions. Orders: Orders AMB Urinalysis Automated Today Z13.9 - Encounter for screening, unspecified AMB Post Void Residual by ultrasound Today N39.0 - Urinary tract infection, site not specified Medications: New ascorbic acid (vitamin C) 1 g PO DAILY 90 tabs 3RF 90 days N39.0 - Urinary tract infection, site not specified Changed From methenamine hippurate Start once completed antibiotic therapy for active urinary tract infection. Discussed importance of holding when on treatment for active UTI 1 g PO DAILY 90 days 90 tabs 1RF N39.0 - Urinary tract infection, site not specified To methenamine hippurate 1 g PO DAILY 90 tabs 3RF 90 days N39.0 - Urinary tract infection, site not specified Refilled tadalafil (Cialis) [facility] [address] [id number] 5 mg PO DAILY 90 tabs 3RF 90 days Discontinued sulfamethoxazole-trimethoprim 800-160 mg (Bactrim DS) Discontinued Reason: Patient Completed Course 1 tab PO BID 14 days 28 tabs 0RF N39.0 - Urinary tract infection, site not specified Coding Level of Care Code Est Pt Level 3 (92793) Complex EM visit Add On G2211 Diagnoses Incomplete bladder emptying R33.9 Cystitis N30.90 Recurrent UTI N39.0 Erectile dysfunction N52.9
--- OUTSIDE RECORDS SUMMARY | 2024-08-17 11:27 | XMS_ITS | Clinical Summary ---
Author Organization [employer] Address [address] [place] [address] Care Team Providers Care Senior Capital Markets Specialist Name Role Phone Unavailable Primary Care Provider [...] Panel 1966 SDOH Screening 1966 Sigmoidoscopy 1966 Disability Screening 1966 Alcohol/Substance Use Screening 1978 Tobacco Screening 1978 Hepatitis C Screening 1984 Hepatitis B Vaccines (1 of 3 - 19+ 3-dose series) 1985 DTaP/Tdap/Td Vaccines (1 - Tdap) 07/14/2007 07/13/2007 Zoster Vaccines (1 of 2) 2016 Dental Oral Exam 05/10/2021 11/09/2020 COVID-19 Vaccine ( - season) 2023 12/05/2022, 03/24/2021, 07/17/2020, Additional history exists Dental X-Ray: Full Mouth 11/11/2023 11/09/2020 Influenza Vaccine (Season Ended) 2024 12/05/2022 RSV Patients and Patients Aged 60 years [...] patient's age to complete this topic Meningococcal B Vaccine Aged Out No l onger eligible based on patient's age to complete [...]
== END 2024-08-17 10:38 | disposition home or self-care (01) ==
LOC: HO.HUSH 10:09
PROVIDERS: PCP Nurse Practitioner Family; Visit Provider Nurse Practitioner Family
DX: R33.9 Retention of urine, unspecified (principal); N30.90 Cystitis, unspecified without hematuria; N39.0 Urinary tract infection, site not specified; N52.9 Male erectile dysfunction, unspecified; Z13.9 Encounter for screening, unspecified
CPT/HCPCS: 99213; G2211

== ENCOUNTER → 2024-08-17 10:08 | Outpatient (BNVA) | payer MEDICARE, MEDICAID, SELFPAY | PROVIDERS: PCP Nurse Practitioner Family; Visit Provider Nurse Practitioner Family | DX: R33.9 Retention of urine, unspecified (principal); N30.90 Cystitis, unspecified without hematuria; N52.9 Male erectile dysfunction, unspecified | CPT/HCPCS: 51798; 81003; 99212 ==

== ENCOUNTER 2024-10-12 09:45 | Outpatient (AMB) | payer MEDICARE, MEDICAID, SELFPAY ==
[2024-10-12 09:56] VITALS: BP 138/68; PULSE 77; BMI 27.7
--- NOTE | 2024-10-12 09:56 | A.OFFVIS_ITS ---
Vital Signs 10/12/24 09:56 Height 6 ft 1 in Weight 210 lb BMI 27.7 BP 138/68 Blood Pressure Location Lt brachial Position Sitting Pulse 77 Pulse Source Pulse Oximeter Intake Visit Reasons: 6 mth f/up Allergies No Known Allergies Allergy (Verified 08/17/24 10:36) Medication List - Last Reconciled 10/12/24 by Parminder Rebolledo MD allopurinol 300 mg PO DAILY ascorbic acid (vitamin C) 1 g PO DAILY 90 days atorvastatin 40 mg PO QPM blood pressure monitor daily use lisinopril 10 mg PO DAILY methenamine hippurate 1 g PO DAILY 90 days metoprolol succinate ER 50 mg PO DAILY 90 days tadalafil (Cialis) 5 mg PO DAILY 90 days HPI Comments Details: Gigi returns for follow-up. Originally seen in consultation regarding an abnormal EKG. There was concern for right bundle-branch block. Patient himself does not have any known cardiac issues. No clear-cut exertional anginal-type complaints. Chronic smoker. On meds for hypertension. He has completed an echocardiogram and stress test. He states he feels fine. No cardiac symptoms. Unfortunately, continues to smoke. [facility] Medical History Tracheal anomaly Atherosclerotic cardiovascular disease Nicotine dependence, cigarettes, uncomplicated Tubular adenoma of colon HTN (hypertension) Gout Surgical History History of elbow surgery History of dental surgery History of tonsillectomy History of appendectomy History of colonoscopy Family History Mother HTN (hypertension) Maternal Uncle Cancer Family/Other Cancer Social History Household Members: Family Housing: Condominium Alcohol intake: current Alcohol intake frequency: a few times a month Patient Tobacco Use Status: Current everyday Tobacco user Cigarettes Per Day: 3 Years Smoked: (current smoker - onset 15yo, 1ppd x 42yrs, now 5-15cig/day - 40pyh) e-Cigarette/Vaping Use: Never Used Second Hand Smoke Exposure: Yes Substance Use Type: Marijuana service: No Current occupational status: disabled Current occupational exposures/hazards: No Cognitive needs: No Hearing needs: No Vision needs: No Review of Systems Const All systems reviewed & are unremarkable except as noted in HPI and below Reports as per HPI and Reports no additional complaints Eyes Reports as per HPI and Denies no additional complaints ENT Denies no additional complaints and Reports as per HPI Card Reports as per HPI, Reports no additional complaints, Denies acrocyanosis, Denies chest pain, Denies leg edema, Denies lightheadedness, Denies palpitations and Denies dyspnea Resp Reports as per HPI, Denies no additional complaints and Denies dyspnea GI Reports as per HPI and Denies no additional complaints Reports no additional complaints and Reports as per HPI Musc Reports no additional complaints and Reports as per HPI Skin/Breast Reports system reviewed and no additional complaints, except as documented Neuro Reports no additional complaints and Reports as per HPI Psych Reports no additional complaints and Reports as per HPI Endo Reports no additional complaints, Reports as per HPI and Denies palpitations Shar/Lymph Reports no additional complaints and Reports as per HPI Aller/Immun Reports no additional complaints and Reports as per HPI Physical Exam Vital Signs: Last Vital Signs Pulse 77 10/12/24 09:56 BP 138/68 10/12/24 09:56 BMI result Body Mass Index 27.7 Const General: comfortable and no acute distress Orientation/consciousness: patient oriented x3 HEENT Other: Unremarkable Head: Yes normal to inspection Neck Neck: Yes normal visual inspection Chest Chest palpation & inspection: normal inspection of the chest Resp Auscultation: clear to auscultation bilaterally Cardio Palpation: normal PMI Heart sounds: S1 normal heart sound present, S2 normal heart sound present, no gallops, no murmurs and no rubs GI Palpation (GI): Soft to palpation Back/Spine/Pelvis Other: unremarkable Skin General skin exam: no rashes or lesions noted Neuro General: patient oriented x3 Extrem General: Yes normal to inspection Psych Mental Status: mental status grossly normal Assessment & Plan Assessment & Plan (1) Atherosclerotic cardiovascular disease: Code(s): I25.10 - Atherosclerotic heart disease of [place] coronary artery without angina pectoris Category: Medical (2) Right bundle branch block: Code(s): I45.10 - Unspecified right bundle-branch block Category: Medical Plan Cardiac studies reviewed. In the echocardiogram, LVEF was 53%. No obvious wall motion abnormalities. Right ventricular systolic function mildly decreased. In the chest CT scan, moderate to severe coronary artery calcification. In the exercise stress test, was able to exercise for 6 minutes 30 seconds on Ludin protocol and reached 7 METS. Had shortness of breath. No EKG evidence of ischemia. Perfusion component was normal. Overall, treatment for stable coronary artery disease. Recommend low-dose aspirin. Continue statins. LDL seems quite well controlled at 43 mg/dL. Triglycerides 79 mg/dL. Blood pressure stable on lisinopril. Smoking cessation. We will screen him for abdominal aortic aneurysm and any carotid stenosis because of smoking history and risk factors. Orders: Orders US carotid duplex BI Today I65.23 - Occlusion and stenosis of bilateral carotid arteries US abdominal aortic aneurysm Today I71.40 - Abdominal aortic aneurysm, without rupture, unspecified Coding Level of Care Code Est Pt Level 4 (65308) Complex EM visit Add On G2211 Diagnoses Atherosclerotic cardiovascular disease I25.10 Right bundle branch block I45.10
--- OUTSIDE RECORDS SUMMARY | 2024-10-12 10:18 | XMS_ITS | Clinical Summary ---
Author Organization [facility] Address [address] [place] [address] Phone Care Team Providers Care Ice Cream Chef Name Role Phone Sai Wagner NP Primary Care Provider [phone] Allergies No known active allergies Medications allopurinol [...] MG 24 hr tablet TAKE 1 TABLET (25 MG TOTAL) BY MOUTH EVERY DAY IN THE EVENING 90 tablet 07/10/2024 Active Active Problems Problem Noted Date Diagnosed Date Erectile dysfunction 07/04/2021 Cigarette smoker 07/04/2021 Obesity 07/04/2021 Osteoarthritis 07/04/2021 Tachycardia 07/12/2020 Orthostatic hypotension 07/12/2020 Alcohol intake above recommended sensible limits 07/12/2020 Macrocytosis 07/12/2020 Edema 07/11/2020 Hypertension 07/11/2020 Gouty arthropathy, unspecified 07/11/2020 Resolved Problems Problem Noted Date Diagnosed Date Resolved Date Gout, not otherwise specified 07/12/2020 01/04/2022 Immunizations Immunization Administration Dates Next Due Td, Unspecified 07/13/2007 [...] Health Maintenance Due Date Last Done Comments Hepatitis B Vaccine (1 of 3 - 19+ 3-dose series) 04/11 Pneumococcal Vaccine: 50+ Years (1 of 2 - PCV) 986 Colorectal Cancer Screening: Annual FOBT 2015 Colorectal Cancer Screening: Colonoscopy 2015 Colorectal Cancer Screening: Sigmoidoscopy 2015 Influenza Vaccine (#1) 2024 Insurance Medicare Medicare Care Teams Ice Cream Chef Relationship Specialty Start Date End Date Sai Wagner NP 1960 [facility] [place] [address] PCP - General 03/12/20
--- OUTSIDE RECORDS SUMMARY | 2024-10-12 10:18 | XMS_ITS | Clinical Summary ---
Author Organization [employer] Address [address] [place] [address] Care Team Providers Care Mannequin Sander And Finisher Name Role Phone Unavailable Primary Care Provider [...] X-Ray: Full Mouth 11/11/2023 11/09/2020 Influenza Vaccine (#1) 2024 12/05/2022 RSV Patients and Patients Aged [...]
== END 2024-10-12 11:21 | disposition home or self-care (01) ==
LOC: HO.HCS 09:46
PROVIDERS: PCP Nurse Practitioner Family; Visit Provider Internal Medicine
DX: I25.10 Atherosclerotic heart disease of native coronary artery without angina pectoris (principal); I45.10 Unspecified right bundle-branch block
CPT/HCPCS: 99214; G2211

== ENCOUNTER → 2024-10-12 09:45 | Outpatient (BNVA) | payer MEDICARE, MEDICAID, SELFPAY | PROVIDERS: PCP Nurse Practitioner Family; Visit Provider Internal Medicine | DX: I25.10 Atherosclerotic heart disease of native coronary artery without angina pectoris (principal); I45.10 Unspecified right bundle-branch block; I10 Essential (primary) hypertension; F17.210 Nicotine dependence, cigarettes, uncomplicated | CPT/HCPCS: 99212 ==

== ENCOUNTER 2024-12-26 07:31 | Outpatient (REF) | payer MEDICARE, MEDICAID, SELFPAY ==
--- OUTSIDE RECORDS SUMMARY | 2024-12-26 07:34 | XMS_ITS | Data Portability ---
Author Organization KEZIA Hernandez s, [address] Address [address] [place] [address] Assessment No assessment recorded. Plan of Treatment Reminders Order Date Submit Date Provider Last Modified By Organization Details Last Modified Time Details Appointments None recorded. Lab urinalysis , dipstick 2022 023 [email or web address] [facility], [address] [place], [address], 16:35:39 culture, urine [address] [facility], [address] [place] [address], [place], [address], 16:06:37 Referral None recorded. Procedures None recorded. Surgeries None recorded. Imaging None recorded. Medication Orders Bactrim DS 800 mg-160 mg tablet 2022 023 CERULEAN [id number], [address] [place], [address], 16:35:40 Patient TargetsNo targets recorded. Patient InstructionsNo instructions recorded. Reason for Referral None Reported. Results Created Date Observation Date Name Description Value Unit Range Abnormal Flag Note LastModifiedBy Organization Detail LastModifiedTime 05/01/1905/04/2022 URINE CULTU RECITLALY NE urine culture, routine FINAL REPORT abnormal Not Available [facility] ([facility]) [address] [facility], [place], [address], 05/04/2022 08:06:46 05/01/1905/04/2022 URINE CULTU RE, ROUTI [...] ng units per mL Not Available [facility] ([facility]) [address] [facility], [place], [address], 05/04/2022 08:06:46 05/01/1905/04/2022 URINE CULTU RE, ROUTI [...] thopr im/Villagomez lfa S Not Available [facility] ([facility]) [address] [facility], [place], [address], 05/04/2022 08:06:46 05/01/1904/30/2022 urina lysis , dipst ick Unknown Analyte Normal = light yellow Not Available [address] [address] [facility], [place], [address], 04/30/2022 15:16:56 05/01/19 23 04/30/2022 urina lysis , dipst ick Unknown Analyte Dark Yellow Not Available mariusz pham [address], [place], [address], 04/30/2022 15:16:56 05/01/19 23 04/30/2022 urina lysis , dipst ick Unknown Analyte Normal = clear Not Available mariusz pham [address], [place], [address], 04/30/2022 15:16:56 05/01/19 23 04/30/2022 urina lysis , dipst ick Unknown Analyte Turbid Not Available [email or web address] [address], [place], [address], 04/30/2022 15:16:56 05/01/19 23 04/30/2022 urina lysis , dipst ick Unknown Analyte Normal = negati ve Not Available mariusz pham [address], [place], [address], 04/30/2022 15:16:56 05/01/19 23 04/30/2022 urina lysis , dipst ick Unknown Analyte Negati ve Not Available mariusz pham [address], [place], [address], 04/30/2022 15:16:56 05/01/19 23 04/30/2022 urina lysis , dipst ick Unknown Analyte Normal = Negati ve Not Available mariusz pham [address], [place], [address], 04/30/2022 15:16:56 05/01/19 23 04/30/2022 urina lysis , dipst ick Unknown Analyte Negati ve Not Available mariusz pham [address], [place], [place], [address], 04/30/2022 15:16:56 05/01/19 23 04/30/2022 urina lysis , dipst ick Unknown Analyte Normal = Negati ve Not Available [facility] [address], [place], [address], 04/30/2022 15:16:56 05/01/19 23 04/30/2022 urina lysis , dipst ick Unknown Analyte Trace Not Available [address] [place] [address], [place], [address], 04/30/2022 15:16:56 05/01/1904/30/2022 urina lysis , dipst ick Unknown Analyte Normal = 1.010, 1.015, 1.020 Not Available [address] [place] [address], [place], [address], 04/30/2022 15:16:56 05/01/19 23 04/30/2022 urina lysis , dipst ick Unknown Analyte 1.015 Not Available [address] [place] [address], [place], [address], 04/30/2022 15:16:56 05/01/19 23 04/30/2022 urina lysis , dipst ick Unknown Analyte Normal = Negati ve Not Available [address] [place] [address], [place], [address], 04/30/2022 15:16:56 05/01/19 23 04/30/2022 urina lysis , dipst ick Unknown Analyte Trace- lysed Not Available [address] [place] [address], [place], [address], 04/30/2022 15:16:56 05/01/19 23 04/30/2022 urina lysis , dipst ick Unknown Analyte Normal = 6.5, 7.0, 7.5, 8.0 Not Available [facility] [address], [place], [address], 04/30/2022 15:16:56 05/01/19 23 04/30/2022 urina lysis , dipst ick Unknown Analyte 6.0 Not Available [address], [place], [address], 04/30/2022 15:16:56 05/01/19 23 04/30/2022 urina lysis , dipst ick Unknown Analyte Normal = Negati ve Not Available [facility] [address], [place], [address], 04/30/2022 15:16:56 05/01/19 23 04/30/2022 urina lysis , dipst ick Unknown Analyte Negati ve Not Available [address], [place], [address], 04/30/2022 15:16:56 05/01/19 23 04/30/2022 urina lysis , dipst ick Unknown Analyte Normal = 0.2, 1.0 Not Available [address], [place], [address], 04/30/2022 15:16:56 05/01/19 23 04/30/2022 urina lysis , dipst ick Unknown Analyte 0.2 E.U./d L Not Available [address], [place], [address], 04/30/2022 15:16:56 05/01/19 23 04/30/2022 urina lysis , dipst ick Unknown Analyte Normal = Negati ve Not Available [address] [place] [address], [place], [address], 04/30/2022 15:16:56 05/01/1904/30/2022 urina lysis , dipst ick Unknown Analyte Positi ve Not Available [facility] [address] [place], [address], 04/30/2022 15:16:56 05/01/19 23 04/30/2022 urina lysis , dipst ick Unknown Analyte Normal = Negati ve Not Available [address] [address] [address] [place], [address], 04/30/2022 15:16:56 05/01/1904/30/2022 urina lysis , dipst ick Unknown Analyte Small Not Available [address], [address], 04/30/2022 15:16:56 Result Notes None recorded. Problems Name Problem SNOMED Code Status Onset Date Resolution Date Notes Provider Name and Address Organization Details Recorded Time Hypertensive disorder 27362934 Active 2022 QUAN MONTES DE OCA null, [place] - [facility] 3 15:14:28 Gout 50590972 Active 2022 QUAN MONTES DE OCA null, [place] - [facility] 3 15:14:41 Constipation 99544848 Active 2022 QUAN MONTES DE OCA null, [place] - [facility] 3 15:15:22 [...] Pulse oximetry Heart rate Body temperature Systolic And Diastolic Provider Name and Address Organization Details Last Updated DateTime 3 182.88 cm 27.8 kg/m2 19577.4 4 g 7 18 /min 98 % 98 % 86 /min 97.8 [degF] 128/86 mm[Hg] QUAN MONTES DE OCA PA - [facility] 15:18:32 Social History Question Answer Notes LastModified by Organizat ion Details LastModified Time Tobacco Smoking Status Current Every Day Smoker QUAN aquino [place] - [facility] 04/30/2022 15:16:48 Which Illicit Or Recreational Drugs Have You Used? Marijuana [email or web address] Information not available 04/30/2022 How Much Tobacco Do You Smoke? 0.5 PPD [email or web address] Information not available 04/30/2022 Have You Recently Traveled Abroad? No [email or web address] Information not available 04/30/2022 Sex: Unknown Functional Status Question Answer Note LastModified by Organizat ion Details LastModified Time How many times per week do you consume alcohol? 3-4 times per week [email or web address] Information not available 04/30/2022 Do you use any illicit or recreational drugs? Yes [email or web address] Information not available 04/30/2022 Do you or have you ever used any other forms of tobacco or nicotine? Yes Information not available 04/30/2022 What is your level of alcohol consumption? Moderate [email or web address] Information not available 04/30/2022 Do you or have you ever used e-cigarettes or vape? Current user of electronic cigarettes occasional [email or web address] Information not available 04/30/2022 Mental Status None recorded. Family History Relationship Description Onset Age of this Age Resolved Age Notes LastModified by Organization Details LastModified Time Father No current problems or disability [email or web address] Not available 04/30 15:15:48 Mother No current problems or disability Not available 04/30 15:15:48 Medical History No medical history recorded. Past Encounters Encounter ID Performer Location Encounter Start Date Encounter Closed Date Diagnosis/Indication Diagnosis SNOMED-CT Code Diagnosis ICD10 Code Diagnosis IMO Codes Diagnosis Note [id number] [address] [address] [place] [address] 10/27/2020 12:16:51 10/27/2020 14:42:21 [id number] SPENCER HAWTHORNE MD [facility] [address] [place] [address] 04/30/2022 12:24:54 04/30/2022 16:36:44 Abdominal pain 75062818 R10.9 Pyuria 4561271 R82.81 Health Concerns Section Related Observation LastModified by Organization Detai ls LastModified Time None Recorded Concern Status LastModified by Organization Details LastModified Time None Recorded Advance Directives Directive None Recorded Payers Insurance Date Sequence Insurance Name Policy Number Policy Guerra Covered Member ID Guerra Member ID Guarantor Name 05/18/2022 1 [facility] (MEDICARE REPLACEMENT/A DVANTAGE - PPO) [id number] Gigi Carranza [id number] Gigi Carranza 05/01/2022 2 MEDICARE B-[place]: [facility] Gigi Carranza [id number] Gigi Carranza Notes Date Note Type Note Provider Name and Address Organization Details Recorded Time 3 text/html Abdominal Pain UCReported by PatientAbdominal PainFor quality, patient reportsbloatingandaching. For onset/timing, patient reportsworse. For source of patient information, patient reportspatient. For location, patient reportsperiumbilicalandsupr apubic. For severity, patient reportsmoderate. For duration, patient reportsintermittent. For modifying factors, patient reportsnothing gives reliefandnothing makes it worse. For associated symptoms, patient reportsno fever,no chills,no blood in the urine,no shortness of breath, andno change in bowel/bladder habits.ROS as noted in the HPI Lower abdominal pain started 5 days ago. Took milk of magnesia for 2 days for possible constipation. Had some loose stools for the last 2 days. Now he has suprapubic and periumbilical pain with mild dysuria. Afebrile. No N/V. SPENCER HAWTHORNE MD [address] [facility], [place], [address], [place] - [facility] 04/30/2022 16:40:57
--- OUTSIDE RECORDS SUMMARY | 2024-12-26 07:34 | XMS_ITS | Clinical Summary ---
Author Organization [employer] Address [address] [facility] [address] [place] [address] Care Team Providers Care Hospital Superintendent Name Role Phone Unavailable Primary Care Provider [...] 2) 2016 Dental Oral Exam 05/10/2021 11/09/2020 Dental X-Ray: Full Mouth 11/11/2023 11/09/2020 COVID-19 Vaccine ( season) 2024 12/05/2022, 03/24/2021, 07/17/2020, Additional history exists Influenza Vaccine (#1) 2024 12/05/2022 RSV Patients [...]
== END 2024-12-26 07:32 | disposition home or self-care (01) ==
LOC: HO.CT 07:31
PROVIDERS: PCP Nurse Practitioner Family; Visit Provider Physician Assistant Medical
DX: Z13.89 Encounter for screening for other disorder (principal)

== ENCOUNTER → 2024-12-26 07:33 | Outpatient (BNV) | payer MEDICARE, MEDICAID, SELFPAY | PROVIDERS: PCP Nurse Practitioner Family; Visit Provider Student in an Organized Health Care Education/Training Program | DX: F17.210 Nicotine dependence, cigarettes, uncomplicated (principal) | CPT/HCPCS: 71271 ==

== ENCOUNTER 2024-12-27 09:29 | Outpatient (REF) | payer MEDICARE, MEDICAID, SELFPAY ==
--- NOTE | ~2024-12-27 | CT_ITS ---
CLINICAL HISTORY: F17.210 - Nicotine dependence, cigarettes, uncomplicated CT lung cancer screening (LDCT) Comparison: CT/REG/OK/SR - CT LUNG SCREENING - 11/09/23 10:01 EDT Technique: Axial CT images of the chest using low-dose technique. Referring provider counseled the patient on shared decision-making for LDCT screening. Additional counseling was provided on smoking cessation. Effective radiation dose total: DLP 49.1 mGycm, CTDIvol 1.3 mGy. Findings: Lung: No suspicious lung nodules. No significant emphysematous changes. Coronary artery calcifications: Moderate Limited upper abdomen: Unremarkable Other: None IMPRESSION: 1. Lung rads category 1; negative no suspicious lung nodules or lesions. Continue routine annual CT low-dose lung screening. 2. Moderate coronary artery calcifications. This document has been electronically signed by: Tin Foster MD on 12/26/2024 22:20:28
--- NOTE | ~2024-12-27 | US_ITS ---
CLINICAL HISTORY: I65.23 - Occlusion and stenosis of bilateral carotid arteries US bilateral carotid duplex Comparison: None provided Findings: Mild calcific plaque of the bilateral carotid bulbs, no apparent flow-limiting stenosis. Waveforms are normal morphology. Peak systolic velocities: Right CCA: 84 cm/s Right ICA: 99 cm/s ICA/CCA ratio: 1.18 Right ECA: Unremarkable Right vertebral and subclavian artery flow antegrade. Left CCA: 60 cm/s Left ICA: 88 cm/s ICA/CCA ratio: 1.1 Left ECA: Unremarkable Left vertebral and subclavian artery flow antegrade. Impression: Normal carotid velocities, no significant stenosis (0-49% stenosis) This document has been electronically signed by: Monae Narayanan MD on 12/27/2024 16:37:42
--- NOTE | ~2024-12-27 | US_ITS ---
CLINICAL HISTORY: I71.40 - Abdominal aortic aneurysm, without rupture, unspecified US of abdominal aorta Comparison: None provided Findings: Aorta diameter proximal 1.8 x 2.0 cm. Aorta diameter mid 1.8 x 1.9 cm. Aorta diameter distal 1.5 x 1.1 cm. Right common iliac artery maximum diameter 0.8 x 1.0 cm. Left common iliac artery maximum diameter 0.8 x 0.9 cm. Impression: 1. No aneurysm of imaged abdominal aorta or common iliac arteries. This document has been electronically signed by: Monae Narayanan MD on 12/27/2024 16:33:54
--- OUTSIDE RECORDS SUMMARY | 2024-12-27 10:50 | XMS_ITS | Clinical Summary ---
Author Organization [facility] Address [address] [place] [address] Phone Care Team Providers Care Rn Outpatient Surgery Name Role Phone Sai Wagner NP Primary Care Provider [phone] Allergies No known active allergies Medications allopurinol [...] Encounters Date Type Department Care Team Description 10/15/2024 Refill [facility] [address] [place] [address] Santi Solares MD from Last 3 Months Immunizations Immunization Administration Dates Next Due Td, [...] Sigmoidoscopy 2015 Influenza Vaccine (#1) 2024 Insurance [facility] Medicare [facility] Medicare Care Teams Rn Outpatient Surgery Relationship Specialty Start Date End Date Sai Wagner NP [address] [place] [address] PCP - General 03/12/20
--- OUTSIDE RECORDS SUMMARY | 2024-12-27 10:50 | XMS_ITS | Clinical Summary ---
Author Organization [employer] Address [address] [facility] [address] [place] [address] Care Team Providers Care Museum Librarian Name Role Phone Unavailable Primary Care Provider [...]
== END 2024-12-27 09:30 | disposition home or self-care (01) ==
LOC: HO.US 09:29
PROVIDERS: PCP Nurse Practitioner Family; Visit Provider Internal Medicine
DX: I65.23 Occlusion and stenosis of bilateral carotid arteries (principal); I71.40 Abdominal aortic aneurysm, without rupture, unspecified; F17.210 Nicotine dependence, cigarettes, uncomplicated
CPT/HCPCS: 71271; 76706; 93880

== ENCOUNTER → 2024-12-27 09:32 | Outpatient (BNV) | payer MEDICARE, MEDICAID, SELFPAY | PROVIDERS: PCP Nurse Practitioner Family; Visit Provider Radiology Diagnostic Radiology | DX: I65.23 Occlusion and stenosis of bilateral carotid arteries (principal); I71.40 Abdominal aortic aneurysm, without rupture, unspecified | CPT/HCPCS: 76706; 93880 ==